=== PATIENT | female | born 1940 | race Caucasian/White ===

== ENCOUNTER 2017-01-17 12:37 | Emergency (ER) | payer OTHER ==
[2017-01-17 12:44] VITALS: BP 153/95; BMI 31.8
--- NOTE | 2017-01-17 12:48 | DR.EXTPAIN ---
HPI - Time seen Time seen: 12:44 - Complaint/Symptoms Chief Complaint Doctor Comments: Patient tripped at the parking docker in handicapped parking. She landed on the left shoulder. She presented to the ED with complaint of left shoulder pain PMH - PMH Past Medical History: Arthritis, Asthma, CHF, COPD, GERD, Hyperthyroidism Past Surgical History: Yes Surgical History: Appendectomy, Cholecystectomy, Hysterectomy, Tonsillectomy - Family History Family Medical History: Cancer, [place], Hypertension ROS - Review of Systems Constitutional: No Symptoms Reported Eyes: No Symptoms Reported ENTM: No Symptoms Reported Respiratoy: No Symptoms Reported Cardiovascular: No Symptoms Reported Gastrointestinal/Abdominal: No Symptoms Reported Genitourinary: No Symptoms Reported Neurological: No Symptoms Reported Musculoskeletal: No Symptoms Reported, Shoulder (left shoulder injury) Integumentary: No Symptoms Reported Hematologic/Lymphatic: No Symptoms Reported Endocrine: No Symptoms Reported Psychiatric: No Symptoms Reported All Other Systems: Reviewed and Negative PE - Vital Signs Vitals: Temperature 97.3 F Pulse Rate 76 Respiratory Rate 18 Blood Pressure [Left Arm] 132/58 Blood Pressure [Right Arm] 142/68 Blood Pressure 153/95 O2 Sat by Pulse Oximetry 94 - General Limitations: No Limitations General Appearance: Alert, In No Apparent Distress - Head Head Exam: Normal Inspection, Atraumatic - Eyes Eye exam: Normal Appearance, PERRL, EOMI - ENT ENT Exam: Normal Exam - Neck Neck Exam: Normal Inspection, Full ROM - Chest Chest Inspection: Normal Inspection - Respiratory Respiratory Exam: Normal Lung Sounds Bilat Respiratory Exam: Bilateral Clear to Auscultation - Cardiovascular Cardiovascular Exam: Regular Rate - Abdominal Exam Abdominal Exam: Normal Inspection Abdominal Tenderness: negative: RUQ, RLQ, LUQ, LLQ, Epigastrium, Suprapubic, Diffuse, Mild, Moderate, Severe, Other - Extremities Extremities Exam: Normal Inspection, Full ROM - Upper Extremities Shoulder Exam: Deformity, Tenderness over AC Joint, Other (left shoulder) Arm Exam: Normal Inspection Elbow Exam: Normal Inspection, Laceration Forearm Exam: Normal Inspection Hand Exam: Normal Inspection Neuromotor Exam: Normal Exam Neurosensory Exam: Normal Exam Hand Tendon Exam: Flexor Digitorium Profundus (Location) - Lower Extremities Hip/Pelvis Exam: Normal Inspection Upper Leg Exam: Normal Inspection Knee Exam: Normal Inspection Lower Leg Exam: Normal Inspection Ankle Exam: Normal Inspection Foot/Toe Exam: Normal Inspection Neurovascular/Tendon Exam: Normal Capillary Refill MDM - Differential Diagnosis Differential Diagnosis: Contusion, Neurovascular Injury Course - Treatment Treatment: Spoke with Dr Pulliam per request of patient; he agreed to see in consult on patient today. S/P consultation agreed to surgery on Sunday of next week. ROR - XRAY XRAY Interpreted by: Radiologist (Shoulder: Slightly impacted humeral neck fracture with associated avulsion of the greater tuberosity.) - Diagnosis Discharge Problem: Humeral surgical neck fracture Qualifiers: Encounter type: initial encounter Fracture type: closed Fracture morphology: 2- part Fracture alignment: displaced Laterality: left Qualified Code(s): S42.222A - 2-part displaced fracture of surgical neck of left humerus, initial encounter for closed fracture - Discharge Plan Condition: Stable - Follow ups/Referrals Follow ups/Referrals: Jacky Smith [Primary Care Provider] - 3 days - Instructions
[2017-01-17] MEDS ORDERED: TORADOL 30 MG VIAL IM ONE (12:49)
[2017-01-17] MEDS ORDERED: TORADOL 30 MG VIAL ONE (12:52)
--- NOTE | 2017-01-17 13:17 | RAD ---
HISTORY: Injury, fall, left shoulder pain and decreased range of motion Study: Left shoulder three views Comparison: None Findings: There is a slightly impacted fracture of the left humeral neck with associated avulsion of the great er tuberosity. The clavicle, AC joint, scapula, and left upper ribs are intact. IMPRESSION: Slightly impacted humeral neck fracture with associated avulsion of the greater tuberosity Reported By:
[2017-01-17] MEDS ORDERED: TYLENOL #3 TAB (W/CODEINE) PO ONE ×2 (15:02→15:04)
--- NOTE | 2017-01-17 17:02 | CT ---
CT left shoulder without contrast Indication: Shoulder pain after fall. Comparison: Radiograph performed earlier today Technique: CT images of the left shoulder were obtained without contrast. Automatic exposure control was utilized. Findings: There is transverse fracture through the humeral surgical neck demonstrating mild impactio n of the distal humerus. There is also longitudinal fracture extension through the base of the great er tuberosity, demonstrating mild superior retraction by the rotator cuff. The glenohumeral articula tion is grossly intact. The AC joint is not widened, but demonstrates mild degenerative disease. The rotator cuff appears grossly intact, within the limitations of a noncontrast CT. No significant mus radha atrophy is appreciated. Impression: Multipart and mildly displaced fracture of the humeral head and neck Reported By:
== END 2017-01-17 16:24 | disposition home or self-care (01) ==
LOC: ER 12:55
DX: S42.222A 2-part displaced fracture of surgical neck of left humerus, initial encounter for closed fracture (principal); W18.49XA Other slipping, tripping and stumbling without falling, initial encounter; Y92.89 Other specified places as the place of occurrence of the external cause
CPT/HCPCS: 36415; 73030; 73200; 80053; 83735; 83880; 85025; 96372; 99283; J1885

== ENCOUNTER → 2017-01-17 | Outpatient (CLI) | payer OTHER ==
[2016-12-01 09:25] VITALS: BP 132/58
[2017-01-17 12:29] LABS: BASOPHILS % (AUTO) 0.7 % (0.2-1.0); EOSINOPHILS # (AUTO) 0.2 x10^3/uL (0.0-0.2); EOSINOPHILS % (AUTO) 2.6 % (0.9-2.9); HEMATOCRIT 45.8 % (36.0-47.0); HEMOGLOBIN 15.4 g/dL (12.0-16.0); LYMPHOCYTES # (AUTO) 1.9 X10^3/uL (1.3-2.9); LYMPHOCYTES % (AUTO) 27.7 % (21.0-51.0); MEAN CORPUSCULAR HEMOGLOBIN 32.1 pg (27.0-34.0); MEAN CORPUSCULAR HGB CONC 33.6 g/dL (33.0-35.0); MEAN CORPUSCULAR VOLUME 95.6 fL (80.0-100.0); MEAN PLATELET VOLUME 9.8 fL (7.4-11.0); MONOCYTES # (AUTO) 0.8 x10^3/uL (0.3-0.8); MONOCYTES % (AUTO) 11.4 % (0.0-13.0); NEUTROPHILS # (AUTO) 3.9 x10^3/uL (2.2-4.8); NEUTROPHILS % (AUTO) 57.6 % (42.0-75.0); PLATELET COUNT 194 X10^3/uL (150.0-450.0); RED BLOOD COUNT 4.79 X10^6/uL (3.5-5.4); RED CELL DISTRIBUTION WIDTH 13.2 % (11.6-16.5); WHITE BLOOD COUNT 6.7 X10^3/uL (3.6-10.0)
[2017-01-17 12:40] LABS: ALANINE AMINOTRANSFERASE 35 Units/L (12-78); ALBUMIN 4.3 g/dL (3.4-5.0); ALKALINE PHOSPHATASE 47 Units/L (46-116); ASPARTATE AMINO TRANSFERASE 30 Units/L (15-37); BLOOD UREA NITROGEN 15 mg/dL (7-18); CALCIUM 9.1 mg/dL (8.5-10.1); CARBON DIOXIDE 29.3 mmol/L (21-32); CHLORIDE 102 mmol/L (98-107); COR NA(FOR HYPERGLY) 142 mmol/L (136-145); CREATININE 1.43 mg/dL (0.55-1.02); GLUCOSE 113 mg/dL (65-99); MAGNESIUM 2.1 mg/dL (1.7-2.9); SODIUM 142 mmol/L (136-145); TOTAL PROTEIN 7.8 g/dL (6.4-8.2); eGFR BLACK RACES 46 (>60); eGFR NON BLACK RACES 38 (>60)
[2017-01-17 12:46] LABS: B-TYPE NATRIURETIC PEPTIDE 9.1 pg/mL (0-79)
== END | disposition home or self-care (01) ==
LOC: LAB 12:05
PROVIDERS: ATTEND Internal Medicine
DX: R60.0 Localized edema (principal); J98.4 Other disorders of lung; R06.09 Other forms of dyspnea
CPT/HCPCS: 36415; 80053; 83735; 83880; 85025

== ENCOUNTER → 2017-01-23 | Outpatient (CLI) | payer OTHER ==
[2017-01-17 12:44] VITALS: BP 153/95
[2017-01-23 12:34] LABS: BILIRUBIN,URINE NEGATIVE (NEGATIVE); BLOOD/HEMOGLOBIN,URINE NEGATIVE (NEGATIVE); GLUCOSE, URINE NEGATIVE (NEGATIVE); KETONES,URINE NEGATIVE (NEGATIVE); LEUKOCYTE ESTERASE ,URINE 1+ (NEGATIVE); NITRITES,URINE NEGATIVE (NEGATIVE); PROTEIN,URINE 2+ (NEGATIVE); UROBILINOGEN,URINE NORMAL (NORMAL)
[2017-01-23 12:42] LABS: BASOPHILS % (AUTO) 0.6 % (0.2-1.0); EOSINOPHILS # (AUTO) 0.3 x10^3/uL (0.0-0.2); EOSINOPHILS % (AUTO) 3.4 % (0.9-2.9); HEMOGLOBIN 12.6 g/dL (12.0-16.0); LYMPHOCYTES % (AUTO) 26.2 % (21.0-51.0); MEAN CORPUSCULAR HEMOGLOBIN 32.4 pg (27.0-34.0); MEAN CORPUSCULAR HGB CONC 34.1 g/dL (33.0-35.0); MEAN CORPUSCULAR VOLUME 94.9 fL (80.0-100.0); MONOCYTES # (AUTO) 0.7 x10^3/uL (0.3-0.8); MONOCYTES % (AUTO) 8.9 % (0.0-13.0); NEUTROPHILS # (AUTO) 4.7 x10^3/uL (2.2-4.8); NEUTROPHILS % (AUTO) 60.9 % (42.0-75.0); PLATELET COUNT 189 X10^3/uL (150.0-450.0); RED CELL DISTRIBUTION WIDTH 13.4 % (11.6-16.5); WHITE BLOOD COUNT 7.6 X10^3/uL (3.6-10.0)
[2017-01-23 12:46] LABS: APPEARANCE,URINE SLIGHTLY HAZY (CLEAR); BACTERIA,URINE TRACE /HPF (NEGATIVE); COLOR,URINE AMBER (YELLOW); RBC,URINE 0-3 /HPF (NEGATIVE); SQUAMOUS EPITHELIAL CELL,UR FEW /HPF (NEGATIVE)
[2017-01-23 12:47] LABS: MUCUS,URINE FEW /HPF (NEGATIVE)
--- NOTE | 2017-01-23 13:26 | RAD ---
HISTORY: Preoperative evaluation for shoulder surgery. Study: PA and lateral views of the chest Comparison: AP chest dated 12/01/2016, left shoulder radiographs dated 01/17/2017 Findings: Linear opacities are noted within the left lung base which were present on prior exam and suggest le ft basal scarring. There is a mildly impacted fracture of the left humeral surgical neck, with depre ssion of the humeral head likely pseudo subluxation related to hemarthrosis. Correlate with prior ch est radiographs. No focal airspace opacities are demonstrated. Cardiac silhouette is borderline enlarged. There are no pleural effusions. IMPRESSION: 1. Borderline enlargement of the cardiac silhouette. Scarring in the right lung base. Lungs are oth erwise clear. 2. Fracture of the surgical neck of the left humerus. Humeral head is mildly depressed with increase d acromiohumeral space, likely pseudosubluxation secondary to a hemarthrosis.. Correlate with prior shoulder radiographs. Reported By:
[2017-01-23 14:03] LABS: ERYTHROCYTE SEDIMENTATION RATE 16 MM/HOUR (0-20)
[2017-01-23 17:14] LABS: ALANINE AMINOTRANSFERASE 30 Units/L (12-78); ALBUMIN 3.7 g/dL (3.4-5.0); ALKALINE PHOSPHATASE 37 Units/L (46-116); ASPARTATE AMINO TRANSFERASE 28 Units/L (15-37); BLOOD UREA NITROGEN 18 mg/dL (7-18); CALCIUM 9.4 mg/dL (8.5-10.1); CARBON DIOXIDE 28.3 mmol/L (21-32); CHLORIDE 105 mmol/L (98-107); CREATININE 1.32 mg/dL (0.55-1.02); GLUCOSE 100 mg/dL (65-99); SODIUM 141 mmol/L (136-145); eGFR BLACK RACES 50 (>60); eGFR NON BLACK RACES 41 (>60)
== END ==
LOC: LAB 11:45
PROVIDERS: ATTEND Orthopaedic Surgery
DX: Z01.818 Encounter for other preprocedural examination (principal); Z01.810 Encounter for preprocedural cardiovascular examination; Z01.811 Encounter for preprocedural respiratory examination; Z79.899 Other long term (current) drug therapy; Z11.8 Encounter for screening for other infectious and parasitic diseases; S42.232A 3-part fracture of surgical neck of left humerus, initial encounter for closed fracture; X58.XXXA Exposure to other specified factors, initial encounter
CPT/HCPCS: 36415; 71020; 80053; 81001; 85025; 85652; 86140; 87641; 93005; 93010

== ENCOUNTER → 2017-01-30 | Day surgery (SDC) | payer OTHER ==
[~2017-01-30] MED LIST: ANCEF VIAL 1 GM ONE; BENADRYL INJ 50 MG VIAL IVP PRN; D5 LR 1000 ML 1,000 ML IV ONE; DILAUDID INJ IVP PRN; DIPRIVAN VIAL ONE; DYLOJECT INJ ONE; FENTANYL INJ 250 mcg ONE; NAROPIN 0.75% ONE; NEOSTIGMINE INJ ONE; NORCURON INJ 10 MG VIAL ONE; NS 50 ML IV + SPIKE MINIBAG* 50 ML IV ONE; NS IRRIGATION 1000 ML 1,000 ML with BACITRACIN VIAL 50,000 UNT IR ONE; PHENERGAN INJ 25 MG IVP PRN; QUELICIN (OR ANECTINE) ONE; REGLAN INJ 10 MG VIAL IVP PRN; ROBINUL ONE; ULTANE GAS IN ONE; VERSED ONE; XYLOCAINE 2 % (PLAIN) ONE; ZOFRAN INJ 4 MG VIAL IVP PRN; ZOFRAN INJ 4 MG VIAL ONE
--- NOTE | 2017-01-30 14:52 | RAD ---
HISTORY: Humeral fracture Study: Left shoulder two views Comparison: January 17, 2017 Findings: The clavicle, AC joint, scapula, glenohumeral joint, and left upper ribs are intact. The patient is immediately status post open reduction and internal fixation of a humeral neck fracture with a plate and multiple screws. Position and alignment is near anatomic. Surgical mateus are present. IMPRESSION: Status post successful open reduction, internal fixation left humeral neck fracture Reported By:
[2017-01-30 16:18] VITALS: BP 139/85
== END | disposition home or self-care (01) ==
LOC: SURG1 10:14
PROVIDERS: ATTEND Orthopaedic Surgery
PROC: 0PSD04Z Reposition Left Humeral Head with Internal Fixation Device, Open Approach (ICD-10-PCS; principal; 2017-01-30 07:30)
DX: S42.292A Other displaced fracture of upper end of left humerus, initial encounter for closed fracture (principal); X58.XXXA Exposure to other specified factors, initial encounter
CPT/HCPCS: 64418; 73030; 76000; 99100; A4216; A4222; J0330; J0690; J2001; J2250; J2405; J2710; J3010; J3490; J7120

== ENCOUNTER → 2017-02-14 | Outpatient (CLI) | payer OTHER ==
[2017-01-30 16:18] VITALS: BP 139/85
--- NOTE | 2017-02-14 12:57 | RAD ---
Left humerus-two views Indication: Postop followup of left humerus fracture. Comparison: January 30, 2017 radiograph reviewed. Findings: Femoral sideplate screw fixation hardware is intact. Minimal AC joint and glenohumeral tasneem nt DJD noted. Impression: Expected postoperative appearance of left humerus fracture which is in anatomic position . Reported By:
== END ==
LOC: RAD 12:35
PROVIDERS: ATTEND Orthopaedic Surgery
DX: S42.232A 3-part fracture of surgical neck of left humerus, initial encounter for closed fracture (principal); X58.XXXA Exposure to other specified factors, initial encounter
CPT/HCPCS: 73060

== ENCOUNTER → 2017-03-14 | Outpatient (CLI) | payer OTHER ==
[2017-01-30 16:18] VITALS: BP 139/85
--- NOTE | 2017-03-14 11:49 | RAD ---
HISTORY: Follow up fracture Study: Left humerus two view Comparison: February 14, 2017 Findings: The patient is status post open reduction and internal fixation of a humeral neck fracture with a pl ate and multiple screws. Position and alignment is unchanged from the prior examination. No obvious healing is identified as yet. IMPRESSION: No significant change from the prior examination Reported By:
== END ==
LOC: RAD 11:14
PROVIDERS: ATTEND Orthopaedic Surgery
DX: S42.232A 3-part fracture of surgical neck of left humerus, initial encounter for closed fracture (principal); X58.XXXA Exposure to other specified factors, initial encounter
CPT/HCPCS: 73060

== ENCOUNTER → 2017-07-03 | Outpatient (CLI) | payer OTHER ==
[2017-01-30 16:18] VITALS: BP 139/85
--- NOTE | 2017-07-05 10:03 | MRI ---
MRI left knee without contrast Indication: Left knee pain and swelling Technique: Multiplanar, multi sequence imaging of the left knee without IV contrast administration. Findings: The extensor mechanism is intact. There is a large subcortical cyst within the median pimentel lar ridge subchondral bone with moderate fissuring of the median patellar ridge articular cartilage. There is moderate thinning and chondromalacia of the lateral patellar articular cartilage as well. Th e patella remains well positioned within the femoral trochlea. The medial and lateral retinacular com plex are intact. Trace amount of fluid is noted within the popliteal fossa. Popliteus muscle and tend on are intact. Pes anserine tendons are normal. Incidental note of dilated popliteal veins The medial femorotibial compartment demonstrates diffuse chondral thinning however there is no full-t hickness chondral loss or subchondral marrow edema. Small surface osteophyte. The lateral femorotibia l compartment demonstrates full-thickness articular cartilage loss within the tibia and fairly high g rade chondral thinning of the lateral femoral condyle. Moderate-sized surface osteophytes are noted w ith moderate subchondral bone marrow edema within the lateral tibial plateau. No localizing or pathologic appearing bone marrow signal abnormality within the knee. The cruciate and collateral ligaments are intact. Biceps femoris and iliotibial band are normal. The medial meniscus demonstrates mucoid degeneration without tear. The lateral meniscus demonstrates ray re truncation and attenuation of the meniscal body and anterior horn consistent with displaced tears. There is no visible intact anterior root attachment. 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 2. Moderate osteoarthrosis of the median patellar ridge evidence by high-grade chondral fissuring and large subcortical cyst formation. 3. [id number] medial femorotibial compartment osteoarthrosis. 4. Moderate sized subtalar joint effusion with trace amount of fluid within the popliteal fossa. 5. Popliteal venous varix. Reported By:
== END | disposition home or self-care (01) | DRG 950 ==
LOC: RAD 10:56
PROVIDERS: ATTEND Orthopaedic Surgery
DX: S83.204D Other tear of unspecified meniscus, current injury, left knee, subsequent encounter (principal); X58.XXXD Exposure to other specified factors, subsequent encounter; M25.462 Effusion, left knee
CPT/HCPCS: 73721

== ENCOUNTER → 2017-10-23 | Outpatient (CLI) | payer OTHER ==
[2017-01-30 16:18] VITALS: BP 139/85
--- NOTE | 2017-10-24 08:50 | VAS ---
HISTORY: Left knee pain and redness Study: Venous Doppler ultrasound of the left lower extremity Comparison: None TECHNIQUE: Multiple meeks scale and color flow Doppler images of the deep venous system were obtained of the left lower extremity. FINDINGS: The deep venous system of the left lower extremity was evaluated from the level of the common femoral vein through the popliteal vein. Normal color flow and augmentation can be observed. In addition, normal compression is seen throughout the deep venous system. IMPRESSION: 1. Negative for DVT. Reported By:
== END ==
LOC: RAD 17:04
PROVIDERS: ATTEND Physician Assistant
DX: M79.89 Other specified soft tissue disorders (principal)
CPT/HCPCS: 93971

== ENCOUNTER 2019-01-08 09:50 | Inpatient (IN) ==
[2019-01-08] MEDS ORDERED: FORTAZ or TAZICEF VIAL INJ IVP SCH (12:51)
[2019-01-08 13:15] LABS: BASOPHILS % (AUTO) 0.3 % (0.2-1.0); EOSINOPHILS % (AUTO) 0.1 % (0.9-2.9); HEMATOCRIT 40.8 % (36.0-47.0); HEMOGLOBIN 13.7 g/dL (12.0-16.0); LYMPHOCYTES # (AUTO) 1.3 X10^3/uL (1.3-2.9); LYMPHOCYTES % (AUTO) 11.2 % (21.0-51.0); MEAN CORPUSCULAR HEMOGLOBIN 33.3 pg (27.0-34.0); MEAN CORPUSCULAR HGB CONC 33.6 g/dL (33.0-35.0); MEAN PLATELET VOLUME 8.8 fL (7.4-11.0); MONOCYTES # (AUTO) 0.7 x10^3/uL (0.3-0.8); MONOCYTES % (AUTO) 6.1 % (0.0-13.0); NEUTROPHILS # (AUTO) 9.9 x10^3/uL (2.2-4.8); NEUTROPHILS % (AUTO) 82.3 % (42.0-75.0); PLATELET COUNT 190 X10^3/uL (150.0-450.0); RED BLOOD COUNT 4.12 X10^6/uL (3.5-5.4); RED CELL DISTRIBUTION WIDTH 13.3 % (11.6-16.5)
[2019-01-08 13:31] LABS: ALANINE AMINOTRANSFERASE 33 Units/L (12-78); ALBUMIN 3.7 g/dL (3.4-5.0); ALKALINE PHOSPHATASE 48 Units/L (46-116); ASPARTATE AMINO TRANSFERASE 18 Units/L (15-37); BLOOD UREA NITROGEN 24 mg/dL (7-18); CARBON DIOXIDE 24.6 mmol/L (21-32); CHLORIDE 103 mmol/L (98-107); COR NA(FOR HYPERGLY) 138 mmol/L (136-145); CREATININE 1.37 mg/dL (0.55-1.02); SODIUM 137 mmol/L (136-145); TOTAL PROTEIN 6.9 g/dL (6.4-8.2); eGFR NON BLACK RACES 39 (>60)
[2019-01-08] MEDS ORDERED: NS 1/2 1000 ML IV 1,000 ML ONE (13:43)
[2019-01-08] MEDS: ROBITUSSIN DM PO SCH ×3 (13:54→21:31)
[2019-01-08] MEDS: LEVAQUIN PREMIX IV 500 MG 500 MG/100 ML BAG IV SCH (13:54)
[2019-01-08] MEDS: NS 1/2 1000 ML IV 1,000 ML IV SCH (13:54)
[2019-01-08] MEDS ORDERED: SALINE 3% 15 ML NEB TX NEB ONE (14:15)
--- NOTE | 2019-01-08 15:07 | RAD ---
History: Pneumonia Study: Portable AP chest Comparison: January 23, 2017 Findings: There is a thin linear scar in the left mid lung unchanged. No lung consolidation is demonstrated. There is no effusion. The heart size is normal. Partially visualized is a sideplate and screws over the proximal left humerus for old fracture. Impression: No acute cardiopulmonary disease Reported By:
[2019-01-08] MEDS: DUONEB 0.5 MG/3 MG NEB SCH ×3 (16:38→23:49)
[2019-01-08 17:28] VITALS: BMI 32.7
[2019-01-08] MEDS: CULTURELLE PRO-WELL PROBIOTIC CAP PO SCH (17:51)
[2019-01-08] MEDS ORDERED: ULTRAM PO PRN (20:03)
[2019-01-08] MEDS ORDERED: VOLTAREN 1 % GEL MULTI DOSE TUBE TOP PRN (20:03)
[2019-01-08] MEDS ORDERED: TEMOVATE SOLN TOP SCH (21:00)
[2019-01-08] MEDS ORDERED: ZyrTEC TAB 10 MG PO SCH (21:00)
[2019-01-08] MEDS: PULMICORT NEB TX 0.5 MG NEB SCH (21:09)
[2019-01-08] MEDS: FLONASE NASAL SPRAY ENOSTRIL SCH (21:28)
[2019-01-08] MEDS: MYSOLINE PO SCH (21:30)
[2019-01-08] MEDS: REQUIP PO SCH (21:30)
[2019-01-08] MEDS: NEURONTIN CAP 100 MG PO SCH (21:30)
[2019-01-08] MEDS: PriLOSEC PO SCH (21:31)
[2019-01-08] MEDS: SOLU-Medrol 40 MG VIAL IVP SCH (21:31)
[2019-01-08] MEDS: FORTAZ or TAZICEF VIAL INJ IVP SCH (21:31)
[2019-01-09] MEDS ORDERED: NS 1/2 1000 ML IV 1,000 ML ONE ×2 (02:55→19:23)
[2019-01-09] MEDS: NS 1/2 1000 ML IV 1,000 ML IV SCH ×3 (03:50→19:59)
[2019-01-09] MEDS: DUONEB 0.5 MG/3 MG NEB SCH ×6 (05:20→23:49)
[2019-01-09] MEDS: SOLU-Medrol 40 MG VIAL IVP SCH ×3 (06:01→21:18)
[2019-01-09 06:20] LABS: BASOPHILS % (AUTO) 0.1 % (0.2-1.0); HEMATOCRIT 36.6 % (36.0-47.0); HEMOGLOBIN 12.6 g/dL (12.0-16.0); LYMPHOCYTES # (AUTO) 1.1 X10^3/uL (1.3-2.9); LYMPHOCYTES % (AUTO) 11.8 % (21.0-51.0); MEAN CORPUSCULAR HEMOGLOBIN 33.7 pg (27.0-34.0); MEAN CORPUSCULAR HGB CONC 34.5 g/dL (33.0-35.0); MEAN CORPUSCULAR VOLUME 97.9 fL (80.0-100.0); MEAN PLATELET VOLUME 8.8 fL (7.4-11.0); MONOCYTES # (AUTO) 0.4 x10^3/uL (0.3-0.8); NEUTROPHILS # (AUTO) 7.8 x10^3/uL (2.2-4.8); NEUTROPHILS % (AUTO) 84.1 % (42.0-75.0); PLATELET COUNT 151 X10^3/uL (150.0-450.0); RED BLOOD COUNT 3.74 X10^6/uL (3.5-5.4); RED CELL DISTRIBUTION WIDTH 13.5 % (11.6-16.5); WHITE BLOOD COUNT 9.2 X10^3/uL (3.6-10.0)
[2019-01-09 06:34] LABS: ALBUMIN 3.1 g/dL (3.4-5.0); CALCIUM 8.7 mg/dL (8.5-10.1); CARBON DIOXIDE 23.9 mmol/L (21-32); COR CA(FOR HYPOALB) 9.4 mg/dL (8.5-10.1); CREATININE 1.2 mg/dL (0.55-1.02)
--- NOTE | 2019-01-09 06:57 | RAD ---
HISTORY: Shortness of breath Study: Chest AP portable Comparison: 01/08/2019 Findings: The heart is upper limits normal in size. The aorta is ectatic. The david are normal. The lung garcia are free of acute infiltrates. No pleural effusions are identified. There is minimal subsegmental atelectasis in the right lung base and left perihilar region. IMPRESSION: Minimal subsegmental atelectasis as described No acute infiltrates Reported By:
[2019-01-09 07:10] LABS: PLATELET MORPHOLOGY COMMENT NORMAL (NORMAL)
[2019-01-09] MEDS: PriLOSEC PO SCH ×2 (08:20→21:18)
[2019-01-09] MEDS: SYNTHROID 50 mcg TAB PO SCH (08:20)
[2019-01-09] MEDS: CULTURELLE PRO-WELL PROBIOTIC CAP PO SCH (08:20)
[2019-01-09] MEDS: FORTAZ or TAZICEF VIAL INJ IVP SCH ×2 (08:20→21:18)
[2019-01-09] MEDS: ROBITUSSIN DM PO SCH ×4 (08:20→21:18)
[2019-01-09] MEDS: MICRO K EXTEN CAP 10 MEQ PO SCH (08:21)
[2019-01-09] MEDS: LEVAQUIN PREMIX IV 500 MG 500 MG/100 ML BAG IV SCH (08:21)
[2019-01-09] MEDS: CELEBREX PO SCH (08:21)
[2019-01-09] MEDS: MYSOLINE PO SCH ×2 (08:22→21:20)
[2019-01-09] MEDS ORDERED: PATIENT'S HOME MEDICATION (Tiotropium Bromide 1 CAP) IN SCH (09:00)
[2019-01-09] MEDS: PULMICORT NEB TX 0.5 MG NEB SCH ×2 (09:31→20:03)
[2019-01-09 10:36] LABS: ABG ALLEN TEST POS; ABG BASE EXCESS -2.8 mmol/L (-2.0-2.0); ABG HCO3 19.4 mmol/L (22-26)
[2019-01-09] MEDS: TUSSIONEX PENNKINETIC SUSP PO PRN (11:35)
[2019-01-09] MEDS: FLONASE NASAL SPRAY ENOSTRIL SCH ×2 (16:32→21:19)
[2019-01-09] MEDS: LOVENOX INJ 30 MG SYR SC SCH ×2 (16:33→21:32)
[2019-01-09] MEDS: ZyrTEC TAB 10 MG PO SCH (21:17)
[2019-01-09] MEDS: REQUIP PO SCH (21:17)
[2019-01-09] MEDS: RESTORIL CAP 30 MG PO PRN (21:17)
[2019-01-09] MEDS: NEURONTIN CAP 100 MG PO SCH (21:18)
[2019-01-10] MEDS: DUONEB 0.5 MG/3 MG NEB SCH ×6 (00:30→19:59)
[2019-01-10 05:36] LABS: BASOPHILS % (AUTO) 0.1 % (0.2-1.0); HEMATOCRIT 36.8 % (36.0-47.0); HEMOGLOBIN 12.4 g/dL (12.0-16.0); LYMPHOCYTES # (AUTO) 0.8 X10^3/uL (1.3-2.9); LYMPHOCYTES % (AUTO) 6.3 % (21.0-51.0); MEAN CORPUSCULAR HEMOGLOBIN 33.6 pg (27.0-34.0); MEAN CORPUSCULAR HGB CONC 33.7 g/dL (33.0-35.0); MEAN CORPUSCULAR VOLUME 99.7 fL (80.0-100.0); MONOCYTES # (AUTO) 0.6 x10^3/uL (0.3-0.8); MONOCYTES % (AUTO) 4.9 % (0.0-13.0); NEUTROPHILS # (AUTO) 10.5 x10^3/uL (2.2-4.8); NEUTROPHILS % (AUTO) 88.7 % (42.0-75.0); PLATELET COUNT 150 X10^3/uL (150.0-450.0); RED BLOOD COUNT 3.69 X10^6/uL (3.5-5.4); RED CELL DISTRIBUTION WIDTH 13.7 % (11.6-16.5); WHITE BLOOD COUNT 11.9 X10^3/uL (3.6-10.0)
[2019-01-10 05:46] LABS: ALBUMIN 2.9 g/dL (3.4-5.0); CARBON DIOXIDE 22.2 mmol/L (21-32); COR CA(FOR HYPOALB) 9.9 mg/dL (8.5-10.1); CREATININE 1.18 mg/dL (0.55-1.02); TOTAL PROTEIN 5.6 g/dL (6.4-8.2)
--- NOTE | 2019-01-10 06:18 | RAD ---
HISTORY: Shortness of breath Study: Chest AP portable Comparison: 01/09/2019 Findings: The heart is upper limits normal in size. The david are normal. The lungs are free of acute alveolar infiltrates. No pleural effusions are identified. Minimal bibasilar subsegmental atelectasis is unchanged. No pleural effusions are identified. The bony thorax is unremarkable. IMPRESSION: No significant change from the prior examination Reported By:
[2019-01-10] MEDS: NS 1/2 1000 ML IV 1,000 ML IV SCH ×3 (06:20→21:58)
[2019-01-10] MEDS: SOLU-Medrol 40 MG VIAL IVP SCH ×3 (06:20→21:46)
[2019-01-10 06:28] LABS: PLATELET MORPHOLOGY COMMENT NORMAL (NORMAL)
[2019-01-10] MEDS: PULMICORT NEB TX 0.5 MG NEB SCH ×2 (08:07→19:59)
[2019-01-10] MEDS: ROBITUSSIN DM PO SCH ×4 (08:17→21:46)
[2019-01-10] MEDS: FORTAZ or TAZICEF VIAL INJ IVP SCH ×2 (08:17→21:45)
[2019-01-10] MEDS: SYNTHROID 50 mcg TAB PO SCH (08:18)
[2019-01-10] MEDS: PriLOSEC PO SCH ×2 (08:18→21:46)
[2019-01-10] MEDS: CELEBREX PO SCH (08:18)
[2019-01-10] MEDS: MICRO K EXTEN CAP 10 MEQ PO SCH (08:18)
[2019-01-10] MEDS: CULTURELLE PRO-WELL PROBIOTIC CAP PO SCH (08:18)
[2019-01-10] MEDS: MYSOLINE PO SCH (08:18)
[2019-01-10] MEDS: LOVENOX INJ 30 MG SYR SC SCH (08:19)
[2019-01-10] MEDS: LEVAQUIN PREMIX IV 500 MG 500 MG/100 ML BAG IV SCH (08:19)
[2019-01-10] MEDS: FLONASE NASAL SPRAY ENOSTRIL SCH ×2 (08:19→22:09)
--- NOTE | 2019-01-10 08:21 | PCM.PROG ---
Progress Note - Progress Note for Day of Date of Exam: 01/09/19 - Subjective Subjective: WAS ADMITTED FOR BRONCHOPNEUMONIA. TODAY, SHE IS ALERT AND ORIENTED, LYING IN BED ON MORNING ROUNDS. SHE CONTINUES WITH SHORNTESS OF BREATH AND A PRODUCTIVE COUGH TODAY. ON EXAMINATION, HEART IS REGULAR IN RATE AND RHYTHM. BILATERAL LUNGS ARE NOTED WITH SCATTERED WHEEZING. ABDOMEN IS ROUND, SOFT, AND NON-TENDER WITH NORMAL BOWEL SOUNDS NOTED IN ALL QUADRANTS. HER VITALS THIS MORNING ARE 98.4-84-20-99%-149/80. LABS WERE OBTAINED. ABNORMAL LAB VALUES INCLUDE THE FOLLOWING: BUN 20, CREATININE 1.20, GLUCOSE 171, ALK PHOS 39, TOTAL PROTEIN 6.0, ALBUMIN 3.1. BLOOD AND SPUTUM CULTURES ARE PENDING. A CHEST XRAY WAS OBTAINED TODAY AND REVEALED: Minimal subsegmental atelectasis as described. No acute infiltrates. TODAY, WE WILL CONTINUE WITH IV ANTIBIOTICS, SUPPLEMENTAL OXYGEN, AND RESPIRATORY TREATMENTS. WE WILL OBTAIN AN ABG. OTHERWISE, WE WILL FOLLOW-UP WITH AM LABS AND CONTINUE TO MONITOR. - Past Medical Family Social History Past Med/Fam/Surg Hx: No changes since H&P Allergies: Allergies No Known Drug Allergies Allergy (Verified 01/08/19 18:39) - Review of Systems ROS: No change since H&P - Vital Signs and I&O's Vital Signs: Temperature 97.6 F Pulse Rate [Left Brachial] 93 Pulse Rate 97 Respiratory Rate 22 Blood Pressure [Left Arm] 136/70 Blood Pressure [Right Arm] 142/68 Blood Pressure 146/63 O2 Sat by Pulse Oximetry 92 Intake and Output: Intake & Output 01/07/19 01/08/19 01/09/19 01/10/19 11:59 11:59 11:59 11:59 Intake Total 2261 / 2261 3623 / 3623 Balance 226 / 2261 3323 / 3623 - Physical Exam Oriented: Normal Eyes: Normal Ear: Normal Nose: Normal Throat: Normal Respiratory: Generalized, Wheezes Cardiovascular: Normal. negative: S3, S4, Murmur : Normal Auscultation: Bowel Sounds: Normal Palpation: Normal Tenderness: Normal Skin: Normal Musculoskeletal: Normal Psychiatric: Normal Mood Description: Calm Affect: Normal Speech Pattern: Clear, Appropriate - Laboratory and Diagnostics Result Diagrams: 01/10/19 05:25 01/10/19 05:25 Labs: 01/08/19 14:30 Sputum - Expectorated Sputum Sputum Culture - Final 01/08/19 14:30 Sputum - Expectorated Sputum - Final Laboratory WBC 11.9 X10^3/uL (3.6-10.0) H 01/10/19 05:25 RBC 3.69 X10^6/uL (3.5-5.4) 01/10/19 05:25 Hgb 12.4 g/dL (12.0-16.0) 01/10/19 05:25 Hct 36.8 % (36.0-47.0) 01/10/19 05:25 MCV 99.7 fL (80.0-100.0) 01/10/19 05:25 MCH 33.6 pg (27.0-34.0) 01/10/19 05:25 MCHC 33.7 g/dL (33.0-35.0) 01/10/19 05:25 RDW 13.7 % (11.6-16.5) 01/10/19 05:25 Plt Count 150 X10^3/uL (150.0-450.0) 01/10/19 05:25 Plt Count Comment Adequate (ADEQUATE) 01/10/19 05:25 MPV 9.0 fL (7.4-11.0) 01/10/19 05:25 Neut % (Auto) 88.7 % (42.0-75.0) H 01/10/19 05:25 Lymph % (Auto) 6.3 % (21.0-51.0) L 01/10/19 05:25 [place] % (Auto) 4.9 % (0.0-13.0) 01/10/19 05:25 Eos % (Auto) 0.0 % (0.9-2.9) L 01/10/19 05:25 Baso % (Auto) 0.1 % (0.2-1.0) L 01/10/19 05:25 Neut # (Auto) 10.5 x10^3/uL (2.2-4.8) H 01/10/19 05:25 Lymph # (Auto) 0.8 X10^3/uL (1.3-2.9) L 01/10/19 05:25 [place] # (Auto) 0.6 x10^3/uL (0.3-0.8) 01/10/19 05:25 Eos # (Auto) 0.0 x10^3/uL (0.0-0.2) 01/10/19 05:25 Baso # (Auto) 0.0 X10^3/uL (0.0-0.1) 01/10/19 05:25 Absolute Nucleated RBC 0.0 /100WBC 01/10/19 05:25 Total Counted 100 01/10/19 05:25 Neutrophils % (Manual) 85 % (39-76) H 01/10/19 05:25 Lymphocytes % (Manual) 10 % (13-43) L 01/10/19 05:25 Monocytes % (Manual) 5 % (4-9) 01/10/19 05:25 Plt Morphology Comment Normal (NORMAL) 01/10/19 05:25 RBC Morphology Normal (NORMAL) 01/10/19 05:25 Sample Site Rb 01/09/19 10:30 ABG pH 7.480 (7.35-7.45) H 01/09/19 10:30 ABG pCO2 26.0 mmHg (35.0-45.0) L 01/09/19 10:30 ABG pO2 82.0 mmHg (80.0-100.0) 01/09/19 10:30 ABG HCO3 19.4 mmol/L (22-26) L 01/09/19 10:30 ABG O2 Saturation 97.0 % (90-100) 01/09/19 10:30 ABG Base Excess -2.8 mmol/L (-2.0-2.0) L 01/09/19 10:30 David Test Pos 01/09/19 10:30 A-a Gradient 35.0 mmHg 01/09/19 10:30 FiO2 21.0 01/09/19 10:30 Blood Gas Comments Tamera well cb 01/09/19 10:30 Sodium 139 mmol/L (136-145) 01/10/19 05:25 Corrected Sodium 141 mmol/L (136-145) 01/10/19 05:25 Potassium 4.6 mmol/L (3.5-5.1) 01/10/19 05:25 Chloride 106 mmol/L (98-107) 01/10/19 05:25 Carbon Dioxide 22.2 mmol/L (21-32) 01/10/19 05:25 BUN 16 mg/dL (7-18) 01/10/19 05:25 Creatinine 1.18 mg/dL (0.55-1.02) H 01/10/19 05:25 Est GFR (MDRD) Af Amer 57 (>60) L 01/10/19 05:25 Est GFR (MDRD) Non-Af 47 (>60) L 01/10/19 05:25 Glucose 172 mg/dL (65-99) H 01/10/19 05:25 Calcium 9.0 mg/dL (8.5-10.1) 01/10/19 05:25 Corrected Calcium 9.9 mg/dL (8.5-10.1) 01/10/19 05:25 Total Bilirubin 0.20 mg/dL (0.2-1.0) 01/10/19 05:25 AST 17 Units/L (15-37) 01/10/19 05:25 ALT 23 Units/L (12-78) 01/10/19 05:25 Alkaline Phosphatase 37 Units/L (46-116) L 01/10/19 05:25 Total Protein 5.6 g/dL (6.4-8.2) L 01/10/19 05:25 Albumin 2.9 g/dL (3.4-5.0) L 01/10/19 05:25 Globulin 2.7 g/dL (2.5-4.5) 01/10/19 05:25 Albumin/Globulin Ratio 1.1 Ratio (1.1-2.1) 01/10/19 05:25 - Plan (1) Bronchopneumonia Status: Acute Plan: IV FORTAZ, IV LEVAQUIN, RESPIRATORY TREATMENTS, IV STEROIDS, CONTINUE TO MONITOR.
[2019-01-10] MEDS: TUSSIONEX PENNKINETIC SUSP PO PRN (08:24)
[2019-01-10] MEDS ORDERED: HumuLIN R SUBCUT PRN (09:52)
[2019-01-10] MEDS: MUCOMYST 20% 200 MG/ML NEB SCH ×4 (10:14→20:00)
[2019-01-10] MEDS ORDERED: NS 1/2 1000 ML IV 1,000 ML ONE ×2 (11:44→21:56)
[2019-01-10] MEDS: SNACK - Diabetic Appropriate PO SCH (20:00)
[2019-01-10] MEDS: NEURONTIN CAP 100 MG PO SCH (21:46)
[2019-01-10] MEDS: ZyrTEC TAB 10 MG PO SCH (21:46)
[2019-01-10] MEDS: REQUIP PO SCH (21:46)
[2019-01-10] MEDS: ELIQUIS PO SCH (21:47)
[2019-01-10] MEDS: RESTORIL CAP 30 MG PO PRN (21:57)
[2019-01-11] MEDS: DUONEB 0.5 MG/3 MG NEB SCH ×6 (00:20→20:04)
[2019-01-11 05:30] LABS: BASOPHILS % (AUTO) 0.1 % (0.2-1.0); HEMATOCRIT 36.8 % (36.0-47.0); HEMOGLOBIN 12.5 g/dL (12.0-16.0); LYMPHOCYTES # (AUTO) 0.5 X10^3/uL (1.3-2.9); LYMPHOCYTES % (AUTO) 4.5 % (21.0-51.0); MEAN CORPUSCULAR HEMOGLOBIN 33.8 pg (27.0-34.0); MEAN CORPUSCULAR HGB CONC 34.1 g/dL (33.0-35.0); MEAN CORPUSCULAR VOLUME 99.2 fL (80.0-100.0); MEAN PLATELET VOLUME 9.3 fL (7.4-11.0); MONOCYTES # (AUTO) 0.4 x10^3/uL (0.3-0.8); MONOCYTES % (AUTO) 3.2 % (0.0-13.0); NEUTROPHILS % (AUTO) 92.2 % (42.0-75.0); PLATELET COUNT 156 X10^3/uL (150.0-450.0); RED BLOOD COUNT 3.71 X10^6/uL (3.5-5.4); RED CELL DISTRIBUTION WIDTH 13.7 % (11.6-16.5); WHITE BLOOD COUNT 11.9 X10^3/uL (3.6-10.0)
--- NOTE | 2019-01-11 05:36 | RAD ---
Examination: AP chest History: SOB Comparison 01/10/2019 Findings: Stable cardiac size. The right lung is clear. Linear densities in the left lung again noted consistent with atelectasis/fibrosis. No superimposed pneumonia, pneumothorax or pleural fluid. Impression: No interval change demonstrated. Reported By:
[2019-01-11 05:38] LABS: CALCIUM 8.9 mg/dL (8.5-10.1); CARBON DIOXIDE 23.9 mmol/L (21-32); COR CA(FOR HYPOALB) 9.7 mg/dL (8.5-10.1); CREATININE 1.27 mg/dL (0.55-1.02); TOTAL PROTEIN 5.8 g/dL (6.4-8.2)
[2019-01-11] MEDS: SOLU-Medrol 40 MG VIAL IVP SCH ×3 (06:33→21:07)
[2019-01-11 06:35] LABS: BAND NEUTROPHILS % 5 % (0-10)
[2019-01-11 06:36] LABS: PLATELET MORPHOLOGY COMMENT NORMAL (NORMAL)
[2019-01-11] MEDS: PULMICORT NEB TX 0.5 MG NEB SCH ×2 (08:59→20:04)
[2019-01-11] MEDS: MUCOMYST 20% 200 MG/ML NEB SCH ×4 (09:00→20:04)
[2019-01-11] MEDS: ELIQUIS PO SCH ×2 (09:01→21:10)
[2019-01-11] MEDS: FORTAZ or TAZICEF VIAL INJ IVP SCH ×2 (09:01→21:07)
[2019-01-11] MEDS: ROBITUSSIN DM PO SCH ×4 (09:01→21:14)
[2019-01-11] MEDS: LEVAQUIN PREMIX IV 500 MG 500 MG/100 ML BAG IV SCH (09:01)
[2019-01-11] MEDS: CULTURELLE PRO-WELL PROBIOTIC CAP PO SCH (09:02)
[2019-01-11] MEDS: MICRO K EXTEN CAP 10 MEQ PO SCH (09:02)
[2019-01-11] MEDS: SYNTHROID 50 mcg TAB PO SCH (09:03)
[2019-01-11] MEDS: PriLOSEC PO SCH ×2 (09:03→21:08)
[2019-01-11] MEDS: CELEBREX PO SCH (09:03)
[2019-01-11] MEDS: FLONASE NASAL SPRAY ENOSTRIL SCH ×2 (09:04→21:11)
[2019-01-11] MEDS: NS 1/2 1000 ML IV 1,000 ML IV SCH ×2 (11:03→21:16)
--- NOTE | 2019-01-11 17:01 | PCM.PROG ---
Progress Note - Progress Note for Day of Date of Exam: 01/10/19 - Subjective Subjective: WAS ADMITTED FOR BRONCHOPNEUMONIA. TODAY, SHE IS ALERT AND ORIENTED, LYING IN BED ON MORNING ROUNDS. SHE CONTINUES WITH SHORNTESS OF BREATH AND A PRODUCTIVE COUGH TODAY, NOT MUCH IMPROVEMENT NOTED SINCE YESTERDAY.. ON EXAMINATION, HEART IS REGULAR IN RATE AND RHYTHM. BILATERAL LUNGS CONTINUE WITH SCATTERED WHEEZING THROUGHOUT. ABDOMEN IS ROUND, SOFT, AND NON-TENDER WITH NORMAL BOWEL SOUNDS NOTED IN ALL QUADRANTS. HER VITALS THIS MORNING ARE 99.5-93-22-96%-138/63. LABS WERE OBTAINED. ABNORMAL LAB VALUES INCLUDE THE FOLLOWING: WBC 11.9, CREATININE 1.18, GLUCOSE 172, ALK PHOS 37, TOTAL PROTEIN 5.6, ALBUMIN 2.9. BLOOD AND SPUTUM CULTURES ARE PENDING. A CHEST XRAY WAS OBTAINED TODAY AND REVEALED: The heart is upper limits normal in size. The david are normal. The lungs are free of acute alveolar infiltrates. No pleural effusions are identified. Minimal bibasilar subsegmental atelectasis is unchanged. No pleural effusions are identified. The bony thorax is unremarkable. TODAY, WE WILL CONTINUE WITH IV ANTIBIOTICS, SUPPLEMENTAL OXYGEN, AND RESPIRATORY TREATMENTS. WE WILL ADD MUCOMYST TO NEB [place], ELIQUIS 2.5MG PO BID, AND INCREASE HER SOLU-MEDROL TO 80MG IV Q8H. OTHERWISE, WE WILL FOLLOW-UP WITH AM LABS AND CONTINUE TO MONITOR. - Past Medical Family Social History Past Med/Fam/Surg Hx: No changes since H&P Allergies: Allergies No Known Drug Allergies Allergy (Verified 01/08/19 18:39) - Review of Systems ROS: No change since H&P - Vital Signs and I&O's Vital Signs: Temperature 98.3 F Pulse Rate [Left Brachial] 88 Pulse Rate 92 Respiratory Rate 18 Blood Pressure [Left Arm] 152/86 Blood Pressure [Right Arm] 142/68 Blood Pressure 146/63 O2 Sat by Pulse Oximetry 94 Intake and Output: Intake & Output 01/09/19 01/10/19 01/11/19 01/12/19 11:59 11:59 11:59 11:59 Intake Total 2261 / 2261 3623 / 3623 2487 / 2487 372 / 372 Balance 2261 / 2261 3623 / 3623 2487 / 2487 372 / 372 - Physical Exam Oriented: Normal Eyes: Normal Ear: Normal Nose: Normal Throat: Normal Respiratory: Generalized, Wheezes Cardiovascular: Normal. negative: S3, S4, Murmur : Normal Auscultation: Bowel Sounds: Normal Palpation: Normal Tenderness: Normal Skin: Normal Musculoskeletal: Normal Psychiatric: Normal Mood Description: Calm Affect: Normal Speech Pattern: Clear, Appropriate - Laboratory and Diagnostics Result Diagrams: 01/11/19 04:55 01/11/19 04:55 Labs: 01/08/19 13:04 Blood Blood Culture - Preliminary 01/08/19 13:01 Blood Blood Culture - Preliminary 01/08/19 14:30 Sputum - Expectorated Sputum Sputum Culture - Final 01/08/19 14:30 Sputum - Expectorated Sputum - Final Laboratory WBC 11.9 X10^3/uL (3.6-10.0) H 01/11/19 04:55 RBC 3.71 X10^6/uL (3.5-5.4) 01/11/19 04:55 Hgb 12.5 g/dL (12.0-16.0) 01/11/19 04:55 Hct 36.8 % (36.0-47.0) 01/11/19 04:55 MCV 99.2 fL (80.0-100.0) 01/11/19 04:55 MCH 33.8 pg (27.0-34.0) 01/11/19 04:55 MCHC 34.1 g/dL (33.0-35.0) 01/11/19 04:55 RDW 13.7 % (11.6-16.5) 01/11/19 04:55 Plt Count 156 X10^3/uL (150.0-450.0) 01/11/19 04:55 Plt Count Comment Adequate (ADEQUATE) 01/11/19 04:55 MPV 9.3 fL (7.4-11.0) 01/11/19 04:55 Neut % (Auto) 92.2 % (42.0-75.0) H 01/11/19 04:55 Lymph % (Auto) 4.5 % (21.0-51.0) L 01/11/19 04:55 [place] % (Auto) 3.2 % (0.0-13.0) 01/11/19 04:55 Eos % (Auto) 0.0 % (0.9-2.9) L 01/11/19 04:55 Baso % (Auto) 0.1 % (0.2-1.0) L 01/11/19 04:55 Neut # (Auto) 11.0 x10^3/uL (2.2-4.8) H 01/11/19 04:55 Lymph # (Auto) 0.5 X10^3/uL (1.3-2.9) L 01/11/19 04:55 [place] # (Auto) 0.4 x10^3/uL (0.3-0.8) 01/11/19 04:55 Eos # (Auto) 0.0 x10^3/uL (0.0-0.2) 01/11/19 04:55 Baso # (Auto) 0.0 X10^3/uL (0.0-0.1) 01/11/19 04:55 Absolute Nucleated RBC 0.0 /100WBC 01/11/19 04:55 Total Counted 100 01/11/19 04:55 Neutrophils % (Manual) 84 % (39-76) H 01/11/19 04:55 Band Neutrophils % 5 % (0-10) 01/11/19 04:55 Lymphocytes % (Manual) 7 % (13-43) L 01/11/19 04:55 Monocytes % (Manual) 4 % (4-9) 01/11/19 04:55 Plt Morphology Comment Normal (NORMAL) 01/11/19 04:55 RBC Morphology Normal (NORMAL) 01/11/19 04:55 Sample Site Rb 01/09/19 10:30 ABG pH 7.480 (7.35-7.45) H 01/09/19 10:30 ABG pCO2 26.0 mmHg (35.0-45.0) L 01/09/19 10:30 ABG pO2 82.0 mmHg (80.0-100.0) 01/09/19 10:30 ABG HCO3 19.4 mmol/L (22-26) L 01/09/19 10:30 ABG O2 Saturation 97.0 % (90-100) 01/09/19 10:30 ABG Base Excess -2.8 mmol/L (-2.0-2.0) L 01/09/19 10:30 David Test Pos 01/09/19 10:30 A-a Gradient 35.0 mmHg 01/09/19 10:30 FiO2 21.0 01/09/19 10:30 Blood Gas Comments Tamera well cb 01/09/19 10:30 Sodium 137 mmol/L (136-145) 01/11/19 04:55 Corrected Sodium 139 mmol/L (136-145) 01/11/19 04:55 Potassium 4.8 mmol/L (3.5-5.1) 01/11/19 04:55 Chloride 105 mmol/L (98-107) 01/11/19 04:55 Carbon Dioxide 23.9 mmol/L (21-32) 01/11/19 04:55 BUN 19 mg/dL (7-18) H 01/11/19 04:55 Creatinine 1.27 mg/dL (0.55-1.02) H 01/11/19 04:55 Est GFR (MDRD) Af Amer 52 (>60) L 01/11/19 04:55 Est GFR (MDRD) Non-Af 43 (>60) L 01/11/19 04:55 Glucose 170 mg/dL (65-99) H 01/11/19 04:55 Calcium 8.9 mg/dL (8.5-10.1) 01/11/19 04:55 Corrected Calcium 9.7 mg/dL (8.5-10.1) 01/11/19 04:55 Total Bilirubin 0.30 mg/dL (0.2-1.0) 01/11/19 04:55 AST 18 Units/L (15-37) 01/11/19 04:55 ALT 31 Units/L (12-78) 01/11/19 04:55 Alkaline Phosphatase 35 Units/L (46-116) L 01/11/19 04:55 Total Protein 5.8 g/dL (6.4-8.2) L 01/11/19 04:55 Albumin 3.0 g/dL (3.4-5.0) L 01/11/19 04:55 Globulin 2.8 g/dL (2.5-4.5) 01/11/19 04:55 Albumin/Globulin Ratio 1.1 Ratio (1.1-2.1) 01/11/19 04:55 - Plan (1) Bronchopneumonia Status: Acute Plan: IV FORTAZ, IV LEVAQUIN, RESPIRATORY TREATMENTS, IV STEROIDS, MUCOMYST IN NEB [place], CONTINUE TO MONITOR.
[2019-01-11] MEDS ORDERED: NS 1/2 1000 ML IV 1,000 ML ONE (21:01)
[2019-01-11] MEDS: RESTORIL CAP 30 MG PO PRN (21:08)
[2019-01-11] MEDS: NEURONTIN CAP 100 MG PO SCH (21:09)
[2019-01-11] MEDS: ZyrTEC TAB 10 MG PO SCH (21:09)
[2019-01-11] MEDS: SNACK - Diabetic Appropriate PO SCH (21:11)
[2019-01-11] MEDS: REQUIP PO SCH (21:14)
[2019-01-12] MEDS: DUONEB 0.5 MG/3 MG NEB SCH ×2 (00:10→05:30)
[2019-01-12] MEDS: SOLU-Medrol 40 MG VIAL IVP SCH (05:12)
[2019-01-12] MEDS: NS 1/2 1000 ML IV 1,000 ML IV SCH (05:13)
[2019-01-12 05:34] LABS: BASOPHILS % (AUTO) 0.1 % (0.2-1.0); HEMATOCRIT 38.5 % (36.0-47.0); HEMOGLOBIN 13.3 g/dL (12.0-16.0); LYMPHOCYTES % (AUTO) 7.4 % (21.0-51.0); MEAN CORPUSCULAR HEMOGLOBIN 34.1 pg (27.0-34.0); MEAN CORPUSCULAR HGB CONC 34.6 g/dL (33.0-35.0); MEAN CORPUSCULAR VOLUME 98.7 fL (80.0-100.0); MEAN PLATELET VOLUME 8.8 fL (7.4-11.0); MONOCYTES # (AUTO) 0.7 x10^3/uL (0.3-0.8); MONOCYTES % (AUTO) 5.3 % (0.0-13.0); NEUTROPHILS # (AUTO) 11.3 x10^3/uL (2.2-4.8); NEUTROPHILS % (AUTO) 87.2 % (42.0-75.0); PLATELET COUNT 164 X10^3/uL (150.0-450.0); RED CELL DISTRIBUTION WIDTH 13.5 % (11.6-16.5)
[2019-01-12 05:48] LABS: CALCIUM 9.2 mg/dL (8.5-10.1); CARBON DIOXIDE 24.5 mmol/L (21-32); CREATININE 1.24 mg/dL (0.55-1.02)
[2019-01-12 05:57] LABS: BAND NEUTROPHILS % 1 % (0-10); PLATELET MORPHOLOGY COMMENT NORMAL (NORMAL)
--- NOTE | 2019-01-12 06:06 | RAD ---
Chest, one view Indication: Shortness of breath Comparison: 01/11/2019 Findings: Heart is stable in size. Chronic interstitial lung changes and mild scarring versus atelectasis within the mid left lung again noted and stable. No definite acute alveolar infiltrate is identified. No significant pleural effusion or pneumothorax. Impression: Stable chest exam as above. Reported By:
[2019-01-12] MEDS: CELEBREX PO SCH (08:07)
[2019-01-12] MEDS: CULTURELLE PRO-WELL PROBIOTIC CAP PO SCH (08:07)
[2019-01-12] MEDS: MICRO K EXTEN CAP 10 MEQ PO SCH (08:07)
[2019-01-12] MEDS: PriLOSEC PO SCH (08:07)
[2019-01-12] MEDS: SYNTHROID 50 mcg TAB PO SCH (08:08)
[2019-01-12] MEDS: ELIQUIS PO SCH (08:08)
[2019-01-12] MEDS: ROBITUSSIN DM PO SCH (08:08)
[2019-01-12] MEDS: FORTAZ or TAZICEF VIAL INJ IVP SCH (08:08)
[2019-01-12 08:34] VITALS: BP 164/78
[2019-01-12] MEDS ORDERED: MILK OF MAGNESIA PO SCH (21:00)
[2019-01-12] MEDS ORDERED: COLACE CAP 100 MG PO SCH (21:00)
== END 2019-01-12 08:45 | disposition home or self-care (01) | DRG 195 ==
LOC: ICU 12:47 → MED/SURG 01-10 10:56
PROVIDERS: ADMIT Internal Medicine; ATTEND Internal Medicine
DX: J18.0 Bronchopneumonia, unspecified organism; I10 Essential (primary) hypertension; E78.2 Mixed hyperlipidemia; R53.1 Weakness; E11.65 Type 2 diabetes mellitus with hyperglycemia; E03.8 Other specified hypothyroidism; E55.9 Vitamin D deficiency, unspecified; R06.02 Shortness of breath; Z79.899 Other long term (current) drug therapy
CPT/HCPCS: 36415; 36600; 71010; 71045; 80053; 82803; 85025; 87040; 87070; 87205; 94640; 94669; A4222; J0713; J1650; J1956; J2920; J7608; J7620; J7626

== ENCOUNTER 2019-01-22 21:24 | Observation (INO) ==
--- NOTE | 2019-01-22 21:56 | CT ---
History: Slurred speech Exam: CT head without contrast Comparison: None Technique: Routine transaxial images were obtained through the brain without contrast. Findings: The ventricles are mildly enlarged with diffuse mild prominence of the cortical sulci. There is moderate periventricular low density bilaterally. No intracranial hemorrhage or edema is seen and there is no extra-axial fluid collection or mass . The midline structures are unremarkable. The bones are intact. IMPRESSION: Mild atrophy and moderate chronic microischemic changes in the deep white matter with no acute abnormality seen. Reported By:
[2019-01-22 22:11] LABS: BASOPHILS % (AUTO) 0.7 % (0.2-1.0); EOSINOPHILS # (AUTO) 0.1 x10^3/uL (0.0-0.2); EOSINOPHILS % (AUTO) 1.6 % (0.9-2.9); HEMATOCRIT 36.7 % (36.0-47.0); HEMOGLOBIN 12.8 g/dL (12.0-16.0); LYMPHOCYTES # (AUTO) 1.7 X10^3/uL (1.3-2.9); LYMPHOCYTES % (AUTO) 23.2 % (21.0-51.0); MEAN CORPUSCULAR HEMOGLOBIN 33.9 pg (27.0-34.0); MEAN CORPUSCULAR VOLUME 96.8 fL (80.0-100.0); MEAN PLATELET VOLUME 8.2 fL (7.4-11.0); MONOCYTES # (AUTO) 0.6 x10^3/uL (0.3-0.8); MONOCYTES % (AUTO) 8.3 % (0.0-13.0); NEUTROPHILS # (AUTO) 4.9 x10^3/uL (2.2-4.8); NEUTROPHILS % (AUTO) 66.2 % (42.0-75.0); PLATELET COUNT 134 X10^3/uL (150.0-450.0); RED BLOOD COUNT 3.79 X10^6/uL (3.5-5.4); WHITE BLOOD COUNT 7.3 X10^3/uL (3.6-10.0)
--- NOTE | 2019-01-22 22:14 | DR.WEAKNES ---
HPI Time Seen Time Seen by Provider: 01/22/19 21:45 Primary Care Physician Primary Care Physician: shelli Complaints Chief Complaint Doctors Comments: An 79 y/o female here with family stating she has difficulty with her speech since an hour [employer] in ED. Her who lives with her saw her at 6 PM and she was fine then When he came back from errands her speech was jumbled. Though, the family states she sounds better now. Chief Complaint:: pt having some difficulty speaking lt facial droop Reviewed Nurses Notes Reviewed: Yes Source History Provided: Patient Mode of Arrival Mode of Arrival: Ambulatory Timing Onset of Chief Complaint: 01/22/19 Symptom Onset: Known and Unknown Onset of Symptoms Start Date: 01/22/19 Onset of Symptoms Start Time: 08:14 Duration Duration: Constant Context Onset: Spontaneous Symptoms: Difficulty talking History of: None Stroke Symptoms: Slurring Associated Signs and Symptoms Associated Signs and Symptoms: None PMH PMH Past Medical History: Yes Past Medical History: Arthritis, Asthma, CHF, COPD, GERD and Hyperthyroidism Past Surgical History: Yes Surgical History: Appendectomy, Cholecystectomy, Hysterectomy and Tonsillectomy Family History History of Family Medical Conditions: Yes Family Medical History: Cancer, [place] and Hypertension Social History Does any household member use tobacco: No Alcohol Use: None Do you use any recreational Drugs:: No Lives With: Family Lives Where: Home infectious screening In the last 2 months have you had wt loss of >10#?: NO Have you had fever, night sweats or hemotysis?: No Have you traveled outside the country in the last 6 months?: No Isolation: Standard ROS Review of Systems Constitutional: No Symptoms Reported Eyes: No Symptoms Reported ENTM: No Symptoms Reported Respiratoy: No Symptoms Reported Cardiovascular: No Symptoms Reported Gastrointestinal/Abdominal: No Symptoms Reported Genitourinary: No Symptoms Reported Neurological: Other (Dysarthria) Musculoskeletal: No Symptoms Reported Integumentary: No Symptoms Reported Hematologic/Lymphatic: No Symptoms Reported Endocrine: No Symptoms Reported Psychiatric: No Symptoms Reported PE Vital Signs Vitals: Temperature 98.2 F Pulse Rate [Left Brachial] 76 Pulse Rate 85 Respiratory Rate 18 Blood Pressure [Left Arm] 130/64 Blood Pressure [Right Arm] 150/79 Blood Pressure 144/80 O2 Sat by Pulse Oximetry 95 General Limitations: No Limitations General Appearance: Alert and In No Apparent Distress Head Head Exam: Normal Inspection, Atraumatic and Normocephalic Eyes Eye exam: Normal Appearance, PERRL and EOMI ENT ENT Exam: Normal Exam, Normal Oropharynx, Mucous Membranes Moist and TM's Normal Bilaterally Mouth Exam: Normal Inspection Neck Neck Exam: Normal Inspection, Full ROM and Trachea Midline Chest Chest Inspection: Normal Inspection and Symmetric Chest Wall Rise Respiratory Respiratory Exam: Normal Lung Sounds Bilat Cardiovascular Cardiovascular Exam: Regular Rate, Normal Rhythm, +S1 and +S2 Abdominal Exam Abdominal Exam: Normal Inspection, Normal Bowel Sounds and Soft Extremities Extremities Exam: Normal Inspection and Full ROM Back Back Exam: Normal Inspection Neurologic Neurological Exam: Alert and Oriented X3 Patient Oriented To: Person, Place and Time Speech: Other (dysarthria) Motor Strength - LUE: 5/5 Motor Strength - RUE: 5/5 Motor Strength - LLE: 5/5 Motor Strength - RLE: 5/5 Sensory Exam Upper Extremity: Pin Prick: Normal and 2 Point Discrimination: Normal Sensory Exam Lower Extremity: Pin Prick: Normal and 2 Point Discrimination: Normal Psychiatric Psychiatric Exam: Normal Affect and Normal Mood Skin Skin Exam: Warm, Dry and Normal Color COURSE Reevaluation 1st: Improved Consultation Consultation Comments: Dr. Bingham consulted via telemetry with recommendation to hold her for Observation here and complete workup. NO TPA recommended. Education/Counseling Education/Counseling: Patient, Family and Counseling Educated On: Treatment, Diagnosis, Prognosis and Needs for Follow Up ROR Labs Reviewed Laboratory Results Reviewed?: Yes Result Diagrams: 01/22/19 21:52 01/22/19 21:52 Laboratory: WBC 7.3 X10^3/uL (3.6-10.0) 01/22/19 21:52 RBC 3.79 X10^6/uL (3.5-5.4) 01/22/19 21:52 Hgb 12.8 g/dL (12.0-16.0) 01/22/19 21:52 Hct 36.7 % (36.0-47.0) 01/22/19 21:52 MCV 96.8 fL (80.0-100.0) 01/22/19 21:52 MCH 33.9 pg (27.0-34.0) 01/22/19 21:52 MCHC 35.0 g/dL (33.0-35.0) 01/22/19 21:52 RDW 14.0 % (11.6-16.5) 01/22/19 21:52 Plt Count 134 X10^3/uL (150.0-450.0) L 01/22/19 21:52 MPV 8.2 fL (7.4-11.0) 01/22/19 21:52 Neut % (Auto) 66.2 % (42.0-75.0) 01/22/19 21:52 Lymph % (Auto) 23.2 % (21.0-51.0) 01/22/19 21:52 [place] % (Auto) 8.3 % (0.0-13.0) 01/22/19 21:52 Eos % (Auto) 1.6 % (0.9-2.9) 01/22/19 21:52 Baso % (Auto) 0.7 % (0.2-1.0) 01/22/19 21:52 Neut # (Auto) 4.9 x10^3/uL (2.2-4.8) H 01/22/19 21:52 Lymph # (Auto) 1.7 X10^3/uL (1.3-2.9) 01/22/19 21:52 [place] # (Auto) 0.6 x10^3/uL (0.3-0.8) 01/22/19 21:52 Eos # (Auto) 0.1 x10^3/uL (0.0-0.2) 01/22/19 21:52 Baso # (Auto) 0.0 X10^3/uL (0.0-0.1) 01/22/19 21:52 Absolute Nucleated RBC 0.1 /100WBC 01/22/19 21:52 INR Target Range - 01/22/19 21:52 INR 0.91 (0.8-1.3) 01/22/19 21:52 APTT 26.9 SECONDS (22.9-36.5) 01/22/19 21:52 PTT Comment - 01/22/19 21:52 Fibrinogen 318 mg/dL (239-489) 01/22/19 21:52 Sodium 140 mmol/L (136-145) 01/22/19 21:52 Corrected Sodium TNP 01/22/19 21:52 Potassium 3.6 mmol/L (3.5-5.1) 01/22/19 21:52 Chloride 102 mmol/L (98-107) 01/22/19 21:52 Carbon Dioxide 26.3 mmol/L (21-32) 01/22/19 21:52 BUN 12 mg/dL (7-18) 01/22/19 21:52 Creatinine 1.55 mg/dL (0.55-1.02) H 01/22/19 21:52 Est GFR (MDRD) Af Amer 41 (>60) L 01/22/19 21:52 Est GFR (MDRD) Non-Af 34 (>60) L 01/22/19 21:52 Glucose 100 mg/dL (65-99) H 01/22/19 21:52 Calcium 9.1 mg/dL (8.5-10.1) 01/22/19 21:52 Corrected Calcium TNP 01/22/19 21:52 Total Bilirubin 0.30 mg/dL (0.2-1.0) 01/22/19 21:52 AST 23 Units/L (15-37) 01/22/19 21:52 ALT 41 Units/L (12-78) 01/22/19 21:52 Alkaline Phosphatase 44 Units/L (46-116) L 01/22/19 21:52 Total Protein 6.3 g/dL (6.4-8.2) L 01/22/19 21:52 Albumin 3.6 g/dL (3.4-5.0) 01/22/19 21:52 Globulin 2.7 g/dL (2.5-4.5) 01/22/19 21:52 Albumin/Globulin Ratio 1.3 Ratio (1.1-2.1) 01/22/19 21:52 Other Results Comments: Radiologist report CT Head w/o: mild atrophy and moderate chronic micro-ischemic changes in the deep white matter with no acute abnormality seen. EKG Rate: 76 [place]: Normal Rhythm: NSR Block: None Hypertrophy: LVH ST: Normal Diagnosis Discharge Problem: Brain TIA, Benign essential HTN, Chronic GERD COPD (chronic obstructive pulmonary disease) Qualifiers: COPD type: chronic bronchitis Chronic bronchitis type: simple Qualified Code(s): J41.0 - Simple chronic bronchitis Hypothyroidism Qualifiers: Hypothyroidism type: acquired Qualified Code(s): E03.9 - Hypothyroidism, unspecified
[2019-01-22 22:25] LABS: ALANINE AMINOTRANSFERASE 41 Units/L (12-78); ALBUMIN 3.6 g/dL (3.4-5.0); ALKALINE PHOSPHATASE 44 Units/L (46-116); ASPARTATE AMINO TRANSFERASE 23 Units/L (15-37); BLOOD UREA NITROGEN 12 mg/dL (7-18); CALCIUM 9.1 mg/dL (8.5-10.1); CARBON DIOXIDE 26.3 mmol/L (21-32); CHLORIDE 102 mmol/L (98-107); CREATININE 1.55 mg/dL (0.55-1.02); SODIUM 140 mmol/L (136-145); TOTAL PROTEIN 6.3 g/dL (6.4-8.2); eGFR NON BLACK RACES 34 (>60)
[2019-01-22] MEDS ORDERED: ASPIRIN 81 MG CHEWTAB ONE (23:29)
[2019-01-22] MEDS: PLAVIX PO SCH (23:34)
[2019-01-23 00:06] VITALS: BMI 31.8
[2019-01-23] MEDS ORDERED: LASIX PO PRN (00:34)
[2019-01-23] MEDS ORDERED: RESTORIL CAP 30 MG PO PRN (00:34)
[2019-01-23] MEDS ORDERED: ULTRAM PO PRN (00:34)
[2019-01-23] MEDS ORDERED: VOLTAREN 1 % GEL MULTI DOSE TUBE TOP PRN (00:34)
[2019-01-23] MEDS ORDERED: PATIENT'S HOME MEDICATION (Fluticasone-Umeclidin-Vilanter [Trelegy Ellipta] 1 INH) IN SCH (00:45)
[2019-01-23 04:20] LABS: BILIRUBIN,URINE NEGATIVE (NEGATIVE); BLOOD/HEMOGLOBIN,URINE NEGATIVE (NEGATIVE); GLUCOSE, URINE NEGATIVE (NEGATIVE); KETONES,URINE NEGATIVE (NEGATIVE); LEUKOCYTE ESTERASE ,URINE NEGATIVE (NEGATIVE); NITRITES,URINE NEGATIVE (NEGATIVE); PROTEIN,URINE NEGATIVE (NEGATIVE); UROBILINOGEN,URINE NORMAL (NORMAL)
[2019-01-23 04:34] LABS: APPEARANCE,URINE CLEAR (CLEAR); COLOR,URINE PALE YELLOW (YELLOW)
[2019-01-23 06:32] LABS: BASOPHILS % (AUTO) 0.5 % (0.2-1.0); EOSINOPHILS # (AUTO) 0.2 x10^3/uL (0.0-0.2); EOSINOPHILS % (AUTO) 2.4 % (0.9-2.9); HEMATOCRIT 35.6 % (36.0-47.0); HEMOGLOBIN 12.4 g/dL (12.0-16.0); LYMPHOCYTES # (AUTO) 1.7 X10^3/uL (1.3-2.9); LYMPHOCYTES % (AUTO) 25.4 % (21.0-51.0); MEAN CORPUSCULAR HEMOGLOBIN 33.7 pg (27.0-34.0); MEAN CORPUSCULAR VOLUME 96.3 fL (80.0-100.0); MEAN PLATELET VOLUME 8.3 fL (7.4-11.0); MONOCYTES # (AUTO) 0.6 x10^3/uL (0.3-0.8); MONOCYTES % (AUTO) 8.6 % (0.0-13.0); NEUTROPHILS # (AUTO) 4.2 x10^3/uL (2.2-4.8); NEUTROPHILS % (AUTO) 63.1 % (42.0-75.0); PLATELET COUNT 128 X10^3/uL (150.0-450.0); RED BLOOD COUNT 3.69 X10^6/uL (3.5-5.4); RED CELL DISTRIBUTION WIDTH 13.9 % (11.6-16.5); WHITE BLOOD COUNT 6.7 X10^3/uL (3.6-10.0)
--- NOTE | 2019-01-23 06:35 | RAD ---
HISTORY: Shortness of breath Study: Chest AP portable Comparison: 01/12/2019 Findings: The heart is within normal limits in size. The david are normal. The lungs are free of acute alveolar infiltrates. No pleural effusions are identified. There is some subsegmental atelectasis in the left lung base. IMPRESSION: No acute infiltrates Subsegmental atelectasis left lung base Reported By:
[2019-01-23 06:55] LABS: ALANINE AMINOTRANSFERASE 42 Units/L (12-78); ALBUMIN 3.3 g/dL (3.4-5.0); ALKALINE PHOSPHATASE 37 Units/L (46-116); ASPARTATE AMINO TRANSFERASE 25 Units/L (15-37); BLOOD UREA NITROGEN 14 mg/dL (7-18); CALCIUM 8.8 mg/dL (8.5-10.1); CHLORIDE 103 mmol/L (98-107); COR CA(FOR HYPOALB) 9.4 mg/dL (8.5-10.1); CREATININE 1.31 mg/dL (0.55-1.02); SODIUM 140 mmol/L (136-145); eGFR NON BLACK RACES 42 (>60)
[2019-01-23] MEDS: ASPIRIN EC 81 MG PO SCH (08:22)
[2019-01-23] MEDS: CELEBREX PO SCH (08:23)
[2019-01-23] MEDS: MICRO K EXTEN CAP 10 MEQ PO SCH (08:23)
[2019-01-23] MEDS: MYSOLINE PO SCH ×2 (08:23→20:22)
[2019-01-23] MEDS: PLAVIX PO SCH (08:23)
[2019-01-23] MEDS: PriLOSEC PO SCH ×2 (08:24→20:22)
[2019-01-23] MEDS: SYNTHROID 50 mcg TAB PO SCH (08:24)
[2019-01-23] MEDS ORDERED: DUONEB 0.5 MG/3 MG NEB SCH (09:00)
[2019-01-23] MEDS ORDERED: PATIENT'S HOME MEDICATION (Tiotropium Bromide Monohydrate 1 CAP) IN SCH (09:00)
[2019-01-23] MEDS ORDERED: TEMOVATE SOLN TOP SCH (09:00)
[2019-01-23] MEDS ORDERED: FLONASE NASAL SPRAY ENOSTRIL SCH (09:00)
[2019-01-23] MEDS: DUONEB 0.5 MG/3 MG NEB SCH ×4 (09:17→20:00)
[2019-01-23] MEDS: PULMICORT NEB TX 0.5 MG NEB SCH ×2 (09:17→20:00)
--- NOTE | 2019-01-23 13:26 | MRI ---
STUDY: MRI OF THE BRAIN WITHOUT GADOLINIUM HISTORY: TIA. COPD. Hypertension. Left-sided facial drooping and headache. Trouble forming words. Technique: Multiplanar multi-sequence MRI of the brain was obtained utilizing standard departmental protocol. Sagittal and axial T1, axial T2, FLAIR, diffusion (DWI/ADC), GRE, and coronal T2 images through the brain were performed. Comparison: Head CT dated January 22, 2019. Findings: The sulci, cisterns and ventricles are prominent consistent with diffuse volume loss. There are thick confluent and scattered foci of T2 prolongation in the periventricular and subcortical white matter of both hemispheres. This is a nonspecific finding which likely represents microangiopathic change in a patient of this age. There is a focus of restricted diffusion in the left precentral gyrus, with some involvement of the adjacent subcortical centrum semiovale. There is a small chronic infarct in the right occipital lobe. There is no evidence of acute hemorrhage, mass, mass effect, or midline shift. There are no abnormal intra-axial or extra-axial fluid collections. The major intracranial vascular flow voids appear intact. The left vertebral artery appears dominant. There is calvarial hyperostosis. There is bilateral aphakia. IMPRESSION: 1. Acute to early subacute infarct in the left precentral gyrus. 2. 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 3. Nonspecific white matter change and volume loss. Reported By:
[2019-01-23] MEDS ORDERED: PHARMACY CONSULT - DOSE _____ XX SCH (14:00)
--- NOTE | 2019-01-23 15:26 | VAS ---
History: TIA Study: Carotid duplex ultrasound Comparison: None Findings: Images show no significant plaque formation. Peak systolic velocity in the distal right common carotid artery is 88 centimeters/second and in the right internal carotid artery is 58.3 centimeters/second for a ratio of 0.66. Peak systolic velocity in the distal left common carotid artery is 61.6 centimeters/second and in the left internal carotid artery is 70.6 centimeters/second for a ratio of 1.14. There is antegrade flow in the vertebral arteries, right dominant. Impression : No evidence for significant plaque formation or stenosis Reported By:
[2019-01-23] MEDS: LOVENOX INJ 30 MG SYR SC SCH ×2 (15:50→20:23)
[2019-01-23] MEDS ORDERED: ZyrTEC TAB 10 MG PO SCH (21:00)
[2019-01-23] MEDS ORDERED: NEURONTIN CAP 100 MG PO SCH (21:00)
[2019-01-23] MEDS ORDERED: CRESTOR TAB 10 MG PO SCH (21:00)
[2019-01-23] MEDS ORDERED: REQUIP PO SCH (21:00)
[2019-01-23] MEDS ORDERED: MACRODANTIN 50 MG CAP PO SCH (21:00)
--- NOTE | 2019-01-23 21:10 | DR.H&P ---
H&P - History & Physical for Day of: H&P Date: 01/22/19 - Chief Complaint Chief Complaint: WEAKNESS, SLURRED SPEECH - History of Present Illness History of Present Illness: IS A 79 YEAR OLD PATIENT OF OURS WHO PRESENTED TO THE ER WITH FAMILY REPORTING WEAKNESS AND SLURRED SPEECH THAT STARTED APPROXIMATELY AN HOUR PRIOR TO ARRIVAL. ON EXAMINATION, SHE IS NOTED WITH SLIGHT RIGHT SIDED FACIAL DROOPING AND SHE HAS AN UNSTEADY GAIT. ON ARRIVAL, VITALS WERE 98.2-85-20-96%-144/80. LABS WERE OBTAINED. ABNORMAL LAB VALUES INLCLUDE THE FOLLOWING: PLT COUNT 134, CREATININE 1.55, GLUCOSE 100, ALK PHOS 44, TOTAL PROTEIN 6.3. URINALYSIS NEGATIVE. SPUTUM CULTURE PENDING. A BRAIN CT WAS OBTAINED AND REVEALED: Mild atrophy and moderate chronic microischemic changes in the deep white matter with no acute abnormality seen. EKG OBTAINED AND REVEALED: SINUS RHYTHM WITH HR 76. A TELEMED STROKE CONSULT WAS OBTAINED IN THE ER. PATIENT NOT A CANDIDATE FOR TPA. SHE WAS ADMITTED FOR FURTHER EVALUATION AND TREATMENT OF WEAKNESS, SLURRED SPEECH, AND FACIAL DROOPING, RULE OUT CVA. WE WILL OBTAIN A BRAIN MRI, CAROTID DOPPLER, AND ECHO IN THE MORNING. SHE WAS STARTED ON ASPIRIN AND PLAVIX. OTHERWISE, WE PLAN TO FOLLOW UP WITH AM LABS AND CONTINUE TO MONITOR. - Past Medical History Past Medical History: Hyperthyroidism, COPD, Asthma, GERD, Arthritis, CHF - Past Surgical History Surgical History: Appendectomy, Cholecystectomy, Hysterectomy, Tonsillectomy - Family History Family Medical History: Cancer, [place], Hypertension - Social History Does any household member use tobacco: No Alcohol Use: None Drug Use: None - Medications Home Medications: No Known Drug Allergies Allergy (Verified 01/08/19 18:39) - Review of Systems Constitutional: Weakness Eyes: No Symptoms Reported ENT: No Symptoms Reported Respiratory: No Symptoms Reported Cardiovascular: No Symptoms Reported Gastrointestinal: No Symptoms Reported Genitourinary: No Symptoms Reported Musculoskeletal: No Symptoms Reported Skin: No Symptoms Reported Neurological: Weakness, Change in Speech, Other (RIGHT SIDED FACIAL DROOPING ) - Physical Exam Vital Signs: Temperature 98.3 F Pulse Rate [Left Brachial] 81 Pulse Rate 93 Respiratory Rate 20 Blood Pressure [Left Arm] 105/59 Blood Pressure [Right Arm] 141/68 Blood Pressure 144/80 O2 Sat by Pulse Oximetry 93 Oriented: Normal Eyes: Normal Ear: Normal Nose: Normal Throat: Normal Respiratory: Diminished Throughout Cardiovascular: Normal : Normal Auscultation: Bowel Sounds: Normal Palpation: Normal Tenderness: Normal Skin: Normal Musculoskeletal: Right, Motor Deficit (RIGHT SIDED WEAKNESS ) Psychiatric: Normal Mood Description: Calm Affect: Normal Speech Pattern: Slurred - Assessment/Plan (1) Brain TIA Status: Acute Plan: OBTAIN BRAIN MRI, ECHO, CAROTID DOPPLER, CONTINUE TO MONITOR (2) Generalized weakness Status: Acute (3) Slurred speech Status: Acute - Allergies Allergies/Adverse Reactions: Allergies Allergy/AdvReac Type Severity Reaction Status Date / Time No Known Drug Allergies Allergy Verified 01/08/19 18:39
[2019-01-23] MEDS ORDERED: ASPIRIN 81 MG CHEWTAB PO ONE (22:47)
[2019-01-24 05:07] LABS: BASOPHILS % (AUTO) 0.4 % (0.2-1.0); EOSINOPHILS # (AUTO) 0.1 x10^3/uL (0.0-0.2); EOSINOPHILS % (AUTO) 1.9 % (0.9-2.9); HEMATOCRIT 35.9 % (36.0-47.0); HEMOGLOBIN 12.3 g/dL (12.0-16.0); LYMPHOCYTES # (AUTO) 1.4 X10^3/uL (1.3-2.9); LYMPHOCYTES % (AUTO) 22.6 % (21.0-51.0); MEAN CORPUSCULAR HEMOGLOBIN 33.6 pg (27.0-34.0); MEAN CORPUSCULAR HGB CONC 34.2 g/dL (33.0-35.0); MEAN CORPUSCULAR VOLUME 98.4 fL (80.0-100.0); MEAN PLATELET VOLUME 8.8 fL (7.4-11.0); MONOCYTES # (AUTO) 0.5 x10^3/uL (0.3-0.8); MONOCYTES % (AUTO) 8.3 % (0.0-13.0); NEUTROPHILS % (AUTO) 66.8 % (42.0-75.0); PLATELET COUNT 137 X10^3/uL (150.0-450.0); RED BLOOD COUNT 3.65 X10^6/uL (3.5-5.4); RED CELL DISTRIBUTION WIDTH 14.1 % (11.6-16.5)
[2019-01-24 05:23] LABS: ALBUMIN 3.1 g/dL (3.4-5.0); CALCIUM 8.8 mg/dL (8.5-10.1); CARBON DIOXIDE 26.6 mmol/L (21-32); COR CA(FOR HYPOALB) 9.5 mg/dL (8.5-10.1); CREATININE 1.24 mg/dL (0.55-1.02); TOTAL PROTEIN 5.7 g/dL (6.4-8.2)
[2019-01-24] MEDS: DUONEB 0.5 MG/3 MG NEB SCH ×2 (08:25→12:05)
[2019-01-24] MEDS: PULMICORT NEB TX 0.5 MG NEB SCH (08:25)
[2019-01-24] MEDS: MICRO K EXTEN CAP 10 MEQ PO SCH (08:40)
[2019-01-24] MEDS: LOVENOX INJ 30 MG SYR SC SCH (08:40)
[2019-01-24] MEDS: ASPIRIN EC 81 MG PO SCH (08:40)
[2019-01-24] MEDS: CELEBREX PO SCH (08:40)
[2019-01-24] MEDS: PLAVIX PO SCH (08:41)
[2019-01-24] MEDS: MYSOLINE PO SCH (08:41)
[2019-01-24] MEDS: PriLOSEC PO SCH (08:56)
[2019-01-24] MEDS: SYNTHROID 50 mcg TAB PO SCH (08:56)
[2019-01-24 12:01] VITALS: BP 137/67
== END 2019-01-24 13:20 | disposition home or self-care (01) ==
LOC: ER 21:25 → MED/SURG 21:25
PROVIDERS: ADMIT Internal Medicine; ATTEND Internal Medicine
DX: J44.9 Chronic obstructive pulmonary disease, unspecified; R29.810 Facial weakness; R94.31 Abnormal electrocardiogram [ECG] [EKG]; E03.8 Other specified hypothyroidism; R94.4 Abnormal results of kidney function studies; Z79.01 Long term (current) use of anticoagulants; G45.8 Other transient cerebral ischemic attacks and related syndromes; J44.0 Chronic obstructive pulmonary disease with (acute) lower respiratory infection; I10 Essential (primary) hypertension; R26.89 Other abnormalities of gait and mobility; K21.9 Gastro-esophageal reflux disease without esophagitis; R47.81 Slurred speech
CPT/HCPCS: 36415; 70450; 70551; 71010; 71045; 80053; 81003; 83735; 85025; 85384; 85610; 85730; 87070; 87205; 92507; 92523; 93005; 93306; 93880; 94640; 94760; 96365; 96372; 97161; 99284; A4222; G0378; J1650; J7620; J7626

== ENCOUNTER 2019-07-08 14:10 | Inpatient (IN) ==
[2019-07-08] MEDS ORDERED: TUSSIONEX PENNKINETIC SUSP PO PRN (16:47)
[2019-07-08] MEDS ORDERED: LEVAQUIN PREMIX IV 750 MG 750 MG/150 ML BAG IV SCH (17:00)
[2019-07-08] MEDS ORDERED: DUONEB 0.5 MG/3 MG NEB SCH (17:00)
[2019-07-08 17:25] VITALS: BMI 28.7
[2019-07-08] MEDS ORDERED: NS 1/2 1000 ML IV 1,000 ML IV ONE (17:26)
[2019-07-08] MEDS ORDERED: FORTAZ or TAZICEF VIAL INJ ONE (17:27)
[2019-07-08] MEDS ORDERED: ROBITUSSIN DM ONE (17:27)
[2019-07-08] MEDS ORDERED: SOLU-Medrol 40 MG VIAL ONE (17:27)
[2019-07-08] MEDS ORDERED: VSL#3 PO ONE (17:28)
[2019-07-08] MEDS ORDERED: LEVAQUIN PREMIX IV 750 MG 750 MG/150 ML BAG IV ONE (17:28)
[2019-07-08] MEDS: SOLU-Medrol 40 MG VIAL IVP SCH ×2 (17:32→21:41)
[2019-07-08] MEDS: ROBITUSSIN DM PO SCH ×2 (17:32→21:40)
[2019-07-08] MEDS: NS 1/2 1000 ML IV 1,000 ML IV SCH ×2 (17:32→17:35)
[2019-07-08] MEDS: VSL#3 PO SCH (17:33)
[2019-07-08] MEDS: FORTAZ or TAZICEF VIAL INJ 1 G in NS 100 ML IV + SPIKE MINIBAG* 100 ML IV SCH ×4 (17:34→21:50)
[2019-07-08] MEDS ORDERED: NS 100 ML IV 0 ML IV ONE (17:39)
[2019-07-08] MEDS ORDERED: NS 100 ML IV + SPIKE MINIBAG* 100 ML IV ONE (17:40)
--- NOTE | 2019-07-08 17:57 | RAD ---
Exam: Portable chest History: 79-year-old female with shortness of breath. Comparison: Previous chest radiograph from 01/23/2019 Findings: Heart size and pulmonary vasculature are within normal limits. Mild interstitial changes are noted at the lung bases. Otherwise lungs are clear with no actual infiltrate or significant effusion on either side. Surgical hardware is identified in the proximal left humerus. Otherwise bony thorax is unremarkable. Impression: No acute cardiopulmonary abnormality is seen on this exam Reported By:
--- NOTE | 2019-07-08 18:34 | DR.UPDATE ---
H&P Update History and Physical Update: History and Physical reviewed and patient examined. Changes noted: Yes with the following: RETURNED TO THE OFFICE TODAY FOR COMPLAINTS OF PERSISTENT COUGH AND SHORTNESS OF BREATH. SHE HAS BEEN RECEIVING LEVAQUIN PO, MEDROL DOSE PACK, AND ALBUTEROL NEB TREATMENTS. SHE DENIES IMPROVEMENT IN SYMPTOMS. SHE WAS ADMITTED FOR FURTHER EVALUATION AND TREATMENT OF BRONCHOPNEUMONIA. ON ADMISSION, WE PLAN TO OBTAIN LABS, CHEST XRAY, AND BLOOD/SPUTUM CULTURES. WE WILL START IV LEVAQUIN, IV FORTAZ, RESPIRATORY TREATMENTS, AND SUPPLEMENTAL OXYGEN. OTHERWISE, WE PLAN TO FOLLOW UP WITH AM LABS AND CONTINUE TO MONITOR. Prescription drug monitoring program results: PDMP was not reviewed
[2019-07-08 18:58] LABS: BASOPHILS % (AUTO) 0.3 % (0.2-1.0); EOSINOPHILS # (AUTO) 0.4 x10^3/uL (0.0-0.2); EOSINOPHILS % (AUTO) 2.9 % (0.9-2.9); HEMOGLOBIN 13.3 g/dL (12.0-16.0); LYMPHOCYTES # (AUTO) 4.2 X10^3/uL (1.3-2.9); LYMPHOCYTES % (AUTO) 31.7 % (21.0-51.0); MEAN CORPUSCULAR HEMOGLOBIN 33.1 pg (27.0-34.0); MEAN CORPUSCULAR VOLUME 94.6 fL (80.0-100.0); MEAN PLATELET VOLUME 8.9 fL (7.4-11.0); MONOCYTES # (AUTO) 0.9 x10^3/uL (0.3-0.8); NEUTROPHILS # (AUTO) 7.7 x10^3/uL (2.2-4.8); NEUTROPHILS % (AUTO) 58.1 % (42.0-75.0); PLATELET COUNT 222 X10^3/uL (150.0-450.0); RED BLOOD COUNT 4.01 X10^6/uL (3.5-5.4); RED CELL DISTRIBUTION WIDTH 14.4 % (11.6-16.5); WHITE BLOOD COUNT 13.3 X10^3/uL (3.6-10.0)
[2019-07-08 19:18] LABS: ALANINE AMINOTRANSFERASE 35 Units/L (12-78); ALBUMIN 3.4 g/dL (3.4-5.0); ALKALINE PHOSPHATASE 41 Units/L (46-116); ASPARTATE AMINO TRANSFERASE 29 Units/L (15-37); BLOOD UREA NITROGEN 25 mg/dL (7-18); CALCIUM 9.6 mg/dL (8.5-10.1); CARBON DIOXIDE 26.4 mmol/L (21-32); CHLORIDE 99 mmol/L (98-107); CREATININE 1.36 mg/dL (0.55-1.02); SODIUM 138 mmol/L (136-145); TOTAL PROTEIN 6.7 g/dL (6.4-8.2); eGFR NON BLACK RACES 40 (>60)
[2019-07-08] MEDS ORDERED: K-RIDER 10 MEQ/NS 100 ML 10 MEQ/100 ML BAG IV PRN (19:36)
[2019-07-08] MEDS ORDERED: KLOR-CON PO PRN (19:36)
[2019-07-08] MEDS ORDERED: POTASSIUM CHL 60 MEQ/NS 0.45% 500 ML IV PRN (19:36)
[2019-07-08] MEDS ORDERED: MICRO K EXTEN CAP 10 MEQ PO PRN (19:36)
[2019-07-08] MEDS ORDERED: MAGNESIUM SULFATE 1 GRAM/100 mL PREMIX 1 GM/100 ML BAG IV PRN (19:36)
[2019-07-08] MEDS ORDERED: POTASSIUM CHLORIDE LIQ 20 MEQ UDC PO PRN (19:36)
[2019-07-08] MEDS ORDERED: POTASSIUM CHL 40 MEQ/NS 0.45% 500 ML IV PRN (19:36)
[2019-07-08] MEDS ORDERED: LASIX PO PRN (20:24)
[2019-07-08] MEDS: K-DUR TAB 20 MEQ PO PRN (20:32)
[2019-07-08] MEDS ORDERED: MACRODANTIN 50 MG CAP PO SCH (21:00)
[2019-07-08] MEDS: PULMICORT NEB TX 0.5 MG NEB SCH (21:25)
[2019-07-08] MEDS: DUONEB 0.5 MG/3 MG NEB SCH (21:25)
[2019-07-08] MEDS: MIRAPEX TAB 0.25 MG PO SCH (21:40)
[2019-07-08] MEDS: PriLOSEC PO SCH (21:40)
[2019-07-08] MEDS: CRESTOR TAB 10 MG PO SCH (21:40)
[2019-07-08] MEDS: ZyrTEC TAB 10 MG PO SCH (21:41)
[2019-07-08] MEDS: RESTORIL CAP 30 MG PO PRN (21:41)
[2019-07-08] MEDS: NYSTATIN SUSP PO SCH (21:41)
[2019-07-08] MEDS: LEVAQUIN PREMIX IV 750 MG 750 MG/150 ML BAG IV SCH (21:52)
[2019-07-09] MEDS: K-DUR TAB 20 MEQ PO PRN (00:38)
[2019-07-09] MEDS: SOLU-Medrol 40 MG VIAL IVP SCH ×3 (05:27→21:42)
[2019-07-09 06:58] LABS: BASOPHILS % (AUTO) 0.1 % (0.2-1.0); EOSINOPHILS % (AUTO) 0.1 % (0.9-2.9); HEMATOCRIT 33.9 % (36.0-47.0); HEMOGLOBIN 12.1 g/dL (12.0-16.0); LYMPHOCYTES # (AUTO) 0.9 X10^3/uL (1.3-2.9); LYMPHOCYTES % (AUTO) 8.8 % (21.0-51.0); MEAN CORPUSCULAR HEMOGLOBIN 33.5 pg (27.0-34.0); MEAN CORPUSCULAR HGB CONC 35.7 g/dL (33.0-35.0); MEAN CORPUSCULAR VOLUME 93.7 fL (80.0-100.0); MEAN PLATELET VOLUME 8.7 fL (7.4-11.0); MONOCYTES # (AUTO) 0.2 x10^3/uL (0.3-0.8); MONOCYTES % (AUTO) 1.7 % (0.0-13.0); NEUTROPHILS # (AUTO) 8.7 x10^3/uL (2.2-4.8); NEUTROPHILS % (AUTO) 89.3 % (42.0-75.0); PLATELET COUNT 205 X10^3/uL (150.0-450.0); RED BLOOD COUNT 3.62 X10^6/uL (3.5-5.4); RED CELL DISTRIBUTION WIDTH 14.2 % (11.6-16.5); WHITE BLOOD COUNT 9.8 X10^3/uL (3.6-10.0)
[2019-07-09 07:19] LABS: ALBUMIN 2.8 g/dL (3.4-5.0); CALCIUM 8.7 mg/dL (8.5-10.1); CARBON DIOXIDE 22.6 mmol/L (21-32); COR CA(FOR HYPOALB) 9.7 mg/dL (8.5-10.1); CREATININE 1.34 mg/dL (0.55-1.02); TOTAL PROTEIN 5.9 g/dL (6.4-8.2)
[2019-07-09 07:33] LABS: PLATELET MORPHOLOGY COMMENT NORMAL (NORMAL)
[2019-07-09] MEDS: DUONEB 0.5 MG/3 MG NEB SCH ×4 (09:19→21:35)
[2019-07-09] MEDS: PULMICORT NEB TX 0.5 MG NEB SCH ×2 (09:19→21:35)
[2019-07-09] MEDS: ROBITUSSIN DM PO SCH ×5 (10:29→20:09)
[2019-07-09] MEDS: VSL#3 PO SCH (10:30)
[2019-07-09] MEDS: NYSTATIN SUSP PO SCH ×4 (10:30→20:06)
[2019-07-09] MEDS: MICRO K EXTEN CAP 10 MEQ PO SCH (10:31)
[2019-07-09] MEDS: ASPIRIN EC 81 MG PO SCH (10:31)
[2019-07-09] MEDS: FORTAZ or TAZICEF VIAL INJ 1 G in NS 100 ML IV + SPIKE MINIBAG* 100 ML IV SCH ×2 (10:31→20:07)
[2019-07-09] MEDS: SYNTHROID 50 mcg TAB PO SCH (10:32)
[2019-07-09] MEDS: PriLOSEC PO SCH ×2 (10:32→20:09)
[2019-07-09] MEDS: MIRAPEX TAB 0.25 MG PO SCH ×2 (10:32→20:07)
[2019-07-09] MEDS: TOPROL XL PO SCH (10:32)
[2019-07-09] MEDS: PLAVIX PO SCH (10:33)
[2019-07-09] MEDS: NS 1/2 1000 ML IV 1,000 ML IV SCH ×3 (10:38→21:42)
[2019-07-09] MEDS ORDERED: NS 1/2 1000 ML IV 1,000 ML IV ONE (12:11)
[2019-07-09] MEDS: LOVENOX INJ 40 MG SYR SC SCH (12:25)
[2019-07-09] MEDS: ZyrTEC TAB 10 MG PO SCH (20:06)
[2019-07-09] MEDS: CRESTOR TAB 10 MG PO SCH (20:06)
[2019-07-09] MEDS: MACROBID CAP 100 MG EXT REL PO SCH (20:06)
[2019-07-09] MEDS: RESTORIL CAP 30 MG PO PRN (20:23)
[2019-07-10] MEDS ORDERED: NS 1000 ML 1,000 ML ONE (01:42)
[2019-07-10] MEDS: NS 1/2 1000 ML IV 1,000 ML IV SCH ×2 (01:45→17:51)
[2019-07-10] MEDS: SOLU-Medrol 40 MG VIAL IVP SCH ×3 (05:03→21:11)
[2019-07-10 06:42] LABS: BASOPHILS % (AUTO) 0.3 % (0.2-1.0); EOSINOPHILS % (AUTO) 0.1 % (0.9-2.9); HEMATOCRIT 32.2 % (36.0-47.0); HEMOGLOBIN 11.2 g/dL (12.0-16.0); LYMPHOCYTES # (AUTO) 1.1 X10^3/uL (1.3-2.9); LYMPHOCYTES % (AUTO) 6.3 % (21.0-51.0); MEAN CORPUSCULAR HEMOGLOBIN 33.2 pg (27.0-34.0); MEAN CORPUSCULAR HGB CONC 34.7 g/dL (33.0-35.0); MEAN CORPUSCULAR VOLUME 95.5 fL (80.0-100.0); MEAN PLATELET VOLUME 8.7 fL (7.4-11.0); MONOCYTES # (AUTO) 0.6 x10^3/uL (0.3-0.8); MONOCYTES % (AUTO) 3.7 % (0.0-13.0); NEUTROPHILS # (AUTO) 15.3 x10^3/uL (2.2-4.8); NEUTROPHILS % (AUTO) 89.6 % (42.0-75.0); PLATELET COUNT 193 X10^3/uL (150.0-450.0); RED BLOOD COUNT 3.37 X10^6/uL (3.5-5.4); RED CELL DISTRIBUTION WIDTH 14.2 % (11.6-16.5); WHITE BLOOD COUNT 17.1 X10^3/uL (3.6-10.0)
[2019-07-10 07:03] LABS: ALANINE AMINOTRANSFERASE 31 Units/L (12-78); ALBUMIN 2.8 g/dL (3.4-5.0); ALKALINE PHOSPHATASE 32 Units/L (46-116); ASPARTATE AMINO TRANSFERASE 25 Units/L (15-37); BLOOD UREA NITROGEN 18 mg/dL (7-18); CALCIUM 8.8 mg/dL (8.5-10.1); CARBON DIOXIDE 20.8 mmol/L (21-32); CHLORIDE 107 mmol/L (98-107); COR CA(FOR HYPOALB) 9.8 mg/dL (8.5-10.1); COR NA(FOR HYPERGLY) 141 mmol/L (136-145); CREATININE 1.07 mg/dL (0.55-1.02); SODIUM 140 mmol/L (136-145); TOTAL PROTEIN 5.7 g/dL (6.4-8.2); eGFR NON BLACK RACES 52 (>60)
[2019-07-10] MEDS: DUONEB 0.5 MG/3 MG NEB SCH ×4 (09:21→20:20)
[2019-07-10] MEDS: PULMICORT NEB TX 0.5 MG NEB SCH ×2 (09:21→20:20)
[2019-07-10] MEDS: FORTAZ or TAZICEF VIAL INJ 1 G in NS 100 ML IV + SPIKE MINIBAG* 100 ML IV SCH ×2 (09:51→21:07)
[2019-07-10] MEDS: LOVENOX INJ 40 MG SYR SC SCH (09:52)
[2019-07-10] MEDS: PLAVIX PO SCH (09:53)
[2019-07-10] MEDS: NYSTATIN SUSP PO SCH ×4 (09:53→21:07)
[2019-07-10] MEDS: MICRO K EXTEN CAP 10 MEQ PO SCH (09:53)
[2019-07-10] MEDS: ROBITUSSIN DM PO SCH ×4 (09:53→21:05)
[2019-07-10] MEDS: SYNTHROID 50 mcg TAB PO SCH (09:53)
[2019-07-10] MEDS: TOPROL XL PO SCH (09:54)
[2019-07-10] MEDS: ASPIRIN EC 81 MG PO SCH (09:54)
[2019-07-10] MEDS: PriLOSEC PO SCH ×2 (09:54→21:06)
[2019-07-10] MEDS: VSL#3 PO SCH (09:55)
[2019-07-10] MEDS: MIRAPEX TAB 0.25 MG PO SCH ×2 (10:00→21:06)
[2019-07-10] MEDS ORDERED: NS 1/2 1000 ML IV 1,000 ML IV ONE (17:13)
[2019-07-10] MEDS: MACROBID CAP 100 MG EXT REL PO SCH (21:06)
[2019-07-10] MEDS: ZyrTEC TAB 10 MG PO SCH (21:06)
[2019-07-10] MEDS: RESTORIL CAP 30 MG PO PRN (21:07)
[2019-07-10] MEDS: CRESTOR TAB 10 MG PO SCH (21:07)
[2019-07-10] MEDS: TYLENOL 325 MG TAB PO PRN (21:08)
[2019-07-10] MEDS: LEVAQUIN PREMIX IV 750 MG 750 MG/150 ML BAG IV SCH (22:26)
[2019-07-11] MEDS: NS 1/2 1000 ML IV 1,000 ML IV SCH (01:45)
[2019-07-11] MEDS: SOLU-Medrol 40 MG VIAL IVP SCH ×2 (05:10→14:05)
--- NOTE | 2019-07-11 06:04 | RAD ---
Examination: Portable AP chest History: SOB Comparison 07/08/2019 Findings: Stable heart size with dilated aorta, essentially clear lungs and pleural spaces. There is no evidence for pneumonia, pulmonary edema or developing pleural effusion. Impression: No significant change or acute abnormality demonstrated. Reported By:
[2019-07-11 06:17] LABS: BASOPHILS % (AUTO) 0.1 % (0.2-1.0); HEMATOCRIT 31.6 % (36.0-47.0); HEMOGLOBIN 10.9 g/dL (12.0-16.0); LYMPHOCYTES % (AUTO) 6.1 % (21.0-51.0); MEAN CORPUSCULAR HEMOGLOBIN 33.1 pg (27.0-34.0); MEAN CORPUSCULAR HGB CONC 34.5 g/dL (33.0-35.0); MEAN CORPUSCULAR VOLUME 96.1 fL (80.0-100.0); MEAN PLATELET VOLUME 8.5 fL (7.4-11.0); MONOCYTES # (AUTO) 0.6 x10^3/uL (0.3-0.8); MONOCYTES % (AUTO) 3.5 % (0.0-13.0); NEUTROPHILS % (AUTO) 90.3 % (42.0-75.0); PLATELET COUNT 182 X10^3/uL (150.0-450.0); RED BLOOD COUNT 3.29 X10^6/uL (3.5-5.4); RED CELL DISTRIBUTION WIDTH 14.1 % (11.6-16.5); WHITE BLOOD COUNT 16.6 X10^3/uL (3.6-10.0)
[2019-07-11 06:33] LABS: ALANINE AMINOTRANSFERASE 50 Units/L (12-78); ALBUMIN 2.5 g/dL (3.4-5.0); ALKALINE PHOSPHATASE 30 Units/L (46-116); ASPARTATE AMINO TRANSFERASE 41 Units/L (15-37); BLOOD UREA NITROGEN 17 mg/dL (7-18); CALCIUM 8.4 mg/dL (8.5-10.1); CARBON DIOXIDE 20.6 mmol/L (21-32); CHLORIDE 108 mmol/L (98-107); COR CA(FOR HYPOALB) 9.6 mg/dL (8.5-10.1); COR NA(FOR HYPERGLY) 141 mmol/L (136-145); CREATININE 1.04 mg/dL (0.55-1.02); SODIUM 140 mmol/L (136-145); TOTAL PROTEIN 5.3 g/dL (6.4-8.2); eGFR NON BLACK RACES 54 (>60)
[2019-07-11 06:56] LABS: BAND NEUTROPHILS % 1 % (0-10); PLATELET MORPHOLOGY COMMENT NORMAL (NORMAL)
[2019-07-11] MEDS: VSL#3 PO SCH (09:32)
[2019-07-11] MEDS: ROBITUSSIN DM PO SCH ×4 (09:33→20:44)
[2019-07-11] MEDS: NYSTATIN SUSP PO SCH ×4 (09:33→20:43)
[2019-07-11] MEDS: PriLOSEC PO SCH ×2 (09:33→20:43)
[2019-07-11] MEDS: TOPROL XL PO SCH (09:33)
[2019-07-11] MEDS: PLAVIX PO SCH (09:34)
[2019-07-11] MEDS: ASPIRIN EC 81 MG PO SCH (09:35)
[2019-07-11] MEDS: MIRAPEX TAB 0.25 MG PO SCH ×2 (09:35→20:44)
[2019-07-11] MEDS: FORTAZ or TAZICEF VIAL INJ 1 G in NS 100 ML IV + SPIKE MINIBAG* 100 ML IV SCH ×2 (09:35→20:40)
[2019-07-11] MEDS: SYNTHROID 50 mcg TAB PO SCH (09:35)
[2019-07-11] MEDS: MICRO K EXTEN CAP 10 MEQ PO SCH (09:35)
[2019-07-11] MEDS: LOVENOX INJ 40 MG SYR SC SCH (09:36)
[2019-07-11] MEDS: DUONEB 0.5 MG/3 MG NEB SCH ×4 (09:40→20:10)
[2019-07-11] MEDS: PULMICORT NEB TX 0.5 MG NEB SCH ×2 (09:45→20:10)
[2019-07-11] MEDS ORDERED: NS 250 ML IV 250 ML IV ONE (11:32)
[2019-07-11] MEDS ORDERED: NS 1/2 1000 ML IV 1,000 ML IV ONE (12:35)
[2019-07-11] MEDS: DIFLUCAN 200 MG IV PREMIX* 200 MG/100 ML BAG IV SCH (14:04)
[2019-07-11] MEDS: ZyrTEC TAB 10 MG PO SCH (20:43)
[2019-07-11] MEDS: RESTORIL CAP 30 MG PO PRN (20:43)
[2019-07-11] MEDS: MACROBID CAP 100 MG EXT REL PO SCH (20:43)
[2019-07-11] MEDS: CRESTOR TAB 10 MG PO SCH (20:44)
[2019-07-11] MEDS: TYLENOL 325 MG TAB PO PRN (20:44)
--- NOTE | 2019-07-11 21:38 | PCM.PROG ---
Progress Note - Progress Note for Day of Date of Exam: 07/09/19 - Subjective Subjective: WAS ADMITTED FOR TREATMENT OF BRONCHOPNEUMONIA. TODAY, SHE IS ALERT AND ORIENTED, LYING IN BED ON MORNING ROUNDS. SHE CONTINUES WITH SHORTNESS OF BREATH AND A PRODUCTIVE COUGH. ON EXAMINATION, HEART IS REGULAR IN RATE AND RHYTHM. BILATERAL LUNGS ARE NOTED WITH SCATTERED WHEEZING AND RHONCHI THROUGHOUT. ABDOMEN IS ROUND, SOFT, AND NON-TENDER WITH NORMAL BOWEL SOUNDS IN ALL QUADRANTS. HER VITALS THIS MORNING ARE: 98.7-82-20-96%-113/64. LABS WERE OBTAINED. ABNORMAL LAB VALUES INCLUDE THE FOLLOWING: HCT 33.9, BUN 19, CREATININE 1.34, GLUCOSE 178, ALK PHOS 178, TOTAL PROTEIN 5.9, ALBUMIN 2.8. BLOOD AND SPUTUM CULTURES ARE PENDING. SHE IS CURRENTLY RECEIVING IV LEVAQUIN, IV FORTAZ, SOLU-MEDROL, RESPIRATORY TX, AND SUPPLEMENTAL OXYGEN. WE WILL CONTINUE WITH CURRENT PLAN OF CARE TODAY. WE WILL OBTAIN A CHEST CT WITH CONTRAST THIS AFTERNOON. OTHERWISE, WE WILL FOLLOW UP WITH AM LABS AND CHEST XRAY AND CONTINUE TO MONITOR. - Past Medical Family Social History Past Med/Fam/Surg Hx: No changes since H&P Allergies: Allergies No Known Drug Allergies Allergy (Verified 06/26/19 08:18) - Review of Systems ROS: No change since H&P - Vital Signs and I&O's Vital Signs: Temperature 97.7 F Pulse Rate [Right Brachial] 82 Pulse Rate 80 Respiratory Rate 17 Blood Pressure [Left Arm] 137/67 Blood Pressure [Right Arm] 136/65 Blood Pressure 111/64 O2 Sat by Pulse Oximetry 97 Intake and Output: Intake & Output 07/09/19 07/10/19 07/11/19 07/12/19 11:59 11:59 11:59 11:59 Intake Total 1696 / 1696 2280 / 2280 3214 / 3214 460 / 460 Balance 1696 / 1696 2280 / 2280 3214 / 3214 460 / 460 - Physical Exam Oriented: Normal Eyes: Normal Ear: Normal Nose: Normal Throat: Normal Respiratory: Normal, Wheezes, Rhonchi Cardiovascular: Normal : Normal Auscultation: Bowel Sounds: Normal Palpation: Normal Tenderness: Normal Skin: Normal Musculoskeletal: Normal Psychiatric: Normal Mood Description: Calm Affect: Normal Speech Pattern: Clear, Appropriate - Laboratory and Diagnostics Result Diagrams: 07/11/19 05:46 07/11/19 05:46 Labs: 07/08/19 18:45 Blood Blood Culture - Preliminary 07/08/19 18:06 Blood Blood Culture - Preliminary 07/08/19 17:13 Sputum - Expectorated Sputum Sputum Culture - Final 07/08/19 17:13 Sputum - Expectorated Sputum - Final Laboratory WBC 16.6 X10^3/uL (3.6-10.0) H 07/11/19 05:46 RBC 3.29 X10^6/uL (3.5-5.4) L 07/11/19 05:46 Hgb 10.9 g/dL (12.0-16.0) L 07/11/19 05:46 Hct 31.6 % (36.0-47.0) L 07/11/19 05:46 MCV 96.1 fL (80.0-100.0) 07/11/19 05:46 MCH 33.1 pg (27.0-34.0) 07/11/19 05:46 MCHC 34.5 g/dL (33.0-35.0) 07/11/19 05:46 RDW 14.1 % (11.6-16.5) 07/11/19 05:46 Plt Count 182 X10^3/uL (150.0-450.0) 07/11/19 05:46 Plt Count Comment Adequate (ADEQUATE) 07/11/19 05:46 MPV 8.5 fL (7.4-11.0) 07/11/19 05:46 Neut % (Auto) 90.3 % (42.0-75.0) H 07/11/19 05:46 Lymph % (Auto) 6.1 % (21.0-51.0) L 07/11/19 05:46 [place] % (Auto) 3.5 % (0.0-13.0) 07/11/19 05:46 Eos % (Auto) 0.0 % (0.9-2.9) L 07/11/19 05:46 Baso % (Auto) 0.1 % (0.2-1.0) L 07/11/19 05:46 Neut # (Auto) 15.0 x10^3/uL (2.2-4.8) H 07/11/19 05:46 Lymph # (Auto) 1.0 X10^3/uL (1.3-2.9) L 07/11/19 05:46 [place] # (Auto) 0.6 x10^3/uL (0.3-0.8) 07/11/19 05:46 Eos # (Auto) 0.0 x10^3/uL (0.0-0.2) 07/11/19 05:46 Baso # (Auto) 0.0 X10^3/uL (0.0-0.1) 07/11/19 05:46 Absolute Nucleated RBC 0.0 /100WBC 07/11/19 05:46 Total Counted 100 07/11/19 05:46 Neutrophils % (Manual) 95 % (39-76) H 07/11/19 05:46 Band Neutrophils % 1 % (0-10) 07/11/19 05:46 Lymphocytes % (Manual) 3 % (13-43) L 07/11/19 05:46 Monocytes % (Manual) 1 % (4-9) L 07/11/19 05:46 Eosinophils % (Manual) 2 % (0-6) 07/09/19 05:52 Plt Morphology Comment Normal (NORMAL) 07/11/19 05:46 RBC Morphology Normal (NORMAL) 07/11/19 05:46 Sodium 140 mmol/L (136-145) 07/11/19 05:46 Corrected Sodium 141 mmol/L (136-145) 07/11/19 05:46 Potassium 3.9 mmol/L (3.5-5.1) 07/11/19 05:46 Chloride 108 mmol/L (98-107) H 07/11/19 05:46 Carbon Dioxide 20.6 mmol/L (21-32) L 07/11/19 05:46 BUN 17 mg/dL (7-18) 07/11/19 05:46 Creatinine 1.04 mg/dL (0.55-1.02) H 07/11/19 05:46 Est GFR (MDRD) Af Amer > 60 (>60) 07/11/19 05:46 Est GFR (MDRD) Non-Af 54 (>60) L 07/11/19 05:46 Glucose 128 mg/dL (65-99) H 07/11/19 05:46 Calcium 8.4 mg/dL (8.5-10.1) L 07/11/19 05:46 Corrected Calcium 9.6 mg/dL (8.5-10.1) 07/11/19 05:46 Magnesium 2.3 mg/dL (1.7-2.9) 07/08/19 18:06 Total Bilirubin 0.20 mg/dL (0.2-1.0) 07/11/19 05:46 AST 41 Units/L (15-37) H 07/11/19 05:46 ALT 50 Units/L (12-78) 07/11/19 05:46 Alkaline Phosphatase 30 Units/L (46-116) L 07/11/19 05:46 Total Protein 5.3 g/dL (6.4-8.2) L 07/11/19 05:46 Albumin 2.5 g/dL (3.4-5.0) L 07/11/19 05:46 Globulin 2.8 g/dL (2.5-4.5) 07/11/19 05:46 Albumin/Globulin Ratio 0.9 Ratio (1.1-2.1) L 07/11/19 05:46 - Plan (1) Bronchopneumonia Status: Acute Plan: OBTAIN CHEST CT, IV LEVAQUIN, IV FORTAZ, SOLU-MEDROL, RESPIRATORY TX, AND SUPPLEMENTAL OXYGEN, CONTINUE TO MONITOR
--- NOTE | 2019-07-11 21:59 | CT ---
CT chest with contrast Indication: Cough, shortness of breath Comparison: 11/30/2016 Technique: CT images of the chest were obtained with IV contrast. Automatic exposure control was utilized. Findings: No acute osseous abnormality. The upper abdomen demonstrates moderate hiatal hernia of the stomach, similar to prior. Normal heart size, without significant pericardial thickening or pericardial effusion. Scattered coronary and thoracic aortic atherosclerotic calcifications are noted. The aorta is normal in caliber. No pathologically enlarged intrathoracic lymph nodes are identified. No central pulmonary arterial filling defect. There is mild subsegmental atelectasis versus scarring. The lungs are otherwise essentially clear. No pleural effusion or pneumothorax. The major airways are patent. Impression: No acute cardiopulmonary abnormality. Hiatal hernia. Reported By:
[2019-07-12 05:00] LABS: BASOPHILS % (AUTO) 0 % (0.2-1.0); HEMATOCRIT 32.1 % (36.0-47.0); HEMOGLOBIN 10.9 g/dL (12.0-16.0); LYMPHOCYTES # (AUTO) 1.3 X10^3/uL (1.3-2.9); LYMPHOCYTES % (AUTO) 8.2 % (21.0-51.0); MEAN CORPUSCULAR HEMOGLOBIN 33.2 pg (27.0-34.0); MEAN CORPUSCULAR VOLUME 97.6 fL (80.0-100.0); MEAN PLATELET VOLUME 8.9 fL (7.4-11.0); MONOCYTES # (AUTO) 0.9 x10^3/uL (0.3-0.8); NEUTROPHILS # (AUTO) 13.3 x10^3/uL (2.2-4.8); NEUTROPHILS % (AUTO) 85.8 % (42.0-75.0); PLATELET COUNT 166 X10^3/uL (150.0-450.0); RED BLOOD COUNT 3.29 X10^6/uL (3.5-5.4); WHITE BLOOD COUNT 15.5 X10^3/uL (3.6-10.0)
[2019-07-12 05:10] LABS: ALANINE AMINOTRANSFERASE 72 Units/L (12-78); ALBUMIN 2.6 g/dL (3.4-5.0); ALKALINE PHOSPHATASE 29 Units/L (46-116); ASPARTATE AMINO TRANSFERASE 45 Units/L (15-37); BLOOD UREA NITROGEN 20 mg/dL (7-18); CALCIUM 8.6 mg/dL (8.5-10.1); CARBON DIOXIDE 21.4 mmol/L (21-32); CHLORIDE 108 mmol/L (98-107); COR CA(FOR HYPOALB) 9.7 mg/dL (8.5-10.1); COR NA(FOR HYPERGLY) 141 mmol/L (136-145); CREATININE 1.08 mg/dL (0.55-1.02); SODIUM 140 mmol/L (136-145); TOTAL PROTEIN 5.2 g/dL (6.4-8.2); eGFR NON BLACK RACES 52 (>60)
[2019-07-12] MEDS: NS 1/2 1000 ML IV 1,000 ML IV SCH (05:29)
[2019-07-12 05:33] LABS: PLATELET MORPHOLOGY COMMENT NORMAL (NORMAL)
--- NOTE | 2019-07-12 05:47 | RAD ---
Examination: AP chest History: Cough SOB Comparison 07/11/2019 Findings: Heart size is normal and unchanged. There is no change in appearance of the lungs with slight chronic interstitial prominence and minimal fibrosis or atelectasis in the left lower lung. Metallic clothing artifacts are projected over the central mediastinum. There is no evidence for pleural fluid or pneumothorax. Impression: No change in appearance of the chest since 1 day prior. Reported By:
[2019-07-12] MEDS: PriLOSEC PO SCH (08:52)
[2019-07-12] MEDS: SYNTHROID 50 mcg TAB PO SCH (08:52)
[2019-07-12] MEDS: ASPIRIN EC 81 MG PO SCH (08:52)
[2019-07-12] MEDS: TOPROL XL PO SCH (08:53)
[2019-07-12] MEDS: ROBITUSSIN DM PO SCH ×2 (08:53→13:49)
[2019-07-12] MEDS: VSL#3 PO SCH (08:54)
[2019-07-12] MEDS: MIRAPEX TAB 0.25 MG PO SCH (08:55)
[2019-07-12] MEDS: PLAVIX PO SCH (08:57)
[2019-07-12] MEDS: LOVENOX INJ 40 MG SYR SC SCH (08:57)
[2019-07-12] MEDS: MICRO K EXTEN CAP 10 MEQ PO SCH (08:59)
[2019-07-12] MEDS: FORTAZ or TAZICEF VIAL INJ 1 G in NS 100 ML IV + SPIKE MINIBAG* 100 ML IV SCH (09:00)
[2019-07-12] MEDS: NYSTATIN SUSP PO SCH ×2 (09:00→13:49)
[2019-07-12] MEDS: DIFLUCAN 200 MG IV PREMIX* 200 MG/100 ML BAG IV SCH (09:01)
[2019-07-12] MEDS: DUONEB 0.5 MG/3 MG NEB SCH ×2 (09:10→12:13)
[2019-07-12] MEDS: PULMICORT NEB TX 0.5 MG NEB SCH (09:10)
[2019-07-12] MEDS ORDERED: LEVAQUIN PREMIX IV 750 MG 750 MG/150 ML BAG IV SCH (11:00)
[2019-07-12] MEDS ORDERED: FORTAZ or TAZICEF VIAL INJ 1 G in NS 100 ML IV + SPIKE MINIBAG* 100 ML IV SCH (14:00)
[2019-07-12 18:41] VITALS: BP 159/75
--- NOTE | 2019-08-24 11:33 | PCM.PROG ---
Progress Note - Progress Note for Day of Date of Exam: 07/11/19 - Subjective Subjective: WAS ADMITTED FOR TREATMENT OF BRONCHOPNEUMONIA. TODAY, SHE IS ALERT AND ORIENTED, LYING IN BED ON MORNING ROUNDS. SHE CONTINUES WITH SHORTNESS OF BREATH AND A PRODUCTIVE COUGH. ON EXAMINATION, HEART IS REGULAR IN RATE AND RHYTHM. BILATERAL LUNGS ARE NOTED WITH SCATTERED WHEEZING AND RHONCHI THROUGHOUT. ABDOMEN IS ROUND, SOFT, AND NON-TENDER WITH NORMAL BOWEL SOUNDS IN ALL QUADRANTS. HER VITALS THIS MORNING ARE: 98.5-89-22-94%-170/84. LABS WERE OBTAINED. ABNORMAL LAB VALUES INCLUDE THE FOLLOWING: WBC 16.6, RBC 3.29, HGB 10.9, HCT 31.6, CHLORIDE 108, CARBON DIOXIDE 20.6, CREATININE 1.04, GLUCOSE 128, CALCIUM 8.4, AST 41, ALK PHOS 30, TOTAL PROTEIN 5.3, ALBUMIN 2.5. BLOOD AND S PUTUM CULTURES ARE PENDING. A CHEST XRAY WAS OBTAINED THIS MORNING AND REVEALED: NO SIGNIFICANT CHANGE OR ACUTE ABNORMALITY DEMONSTRATED. SHE IS CURRENTLY RECEIVING IV LEVAQUIN, IV FORTAZ, SOLU-MEDROL, RESPIRATORY TX, AND SUPPLEMENTAL OXYGEN. WE WILL CONTINUE WITH CURRENT PLAN OF CARE TODAY. SHE IS SCHEDULE FOR A CHEST CT THIS AFTERNOON. OTHERWISE, WE WILL FOLLOW UP WITH AM LABS AND CHEST XRAY AND CONTINUE TO MONITOR. - Past Medical Family Social History Past Med/Fam/Surg Hx: No changes since H&P Allergies: Allergies No Known Drug Allergies Allergy (Verified 06/26/19 08:18) - Review of Systems ROS: No change since H&P - Vital Signs and I&O's Vital Signs: Temperature 98.4 F Pulse Rate [Right Brachial] 78 Pulse Rate 74 Respiratory Rate 20 Blood Pressure [Left Arm] 137/67 Blood Pressure [Right Arm] 159/75 Blood Pressure 111/64 O2 Sat by Pulse Oximetry 96 - Physical Exam Oriented: Normal Eyes: Normal Ear: Normal Nose: Normal Throat: Normal Respiratory: Normal, Wheezes, Rhonchi Cardiovascular: Normal : Normal Auscultation: Bowel Sounds: Normal Tenderness: Normal Skin: Normal Musculoskeletal: Normal Psychiatric: Normal Mood Description: Calm Affect: Normal Speech Pattern: Clear, Appropriate - Laboratory and Diagnostics Result Diagrams: 07/12/19 04:22 07/12/19 04:22 Labs: 07/08/19 18:45 Blood Blood Culture - Final 07/08/19 18:06 Blood Blood Culture - Final 07/08/19 17:13 Sputum - Expectorated Sputum Sputum Culture - Final 07/08/19 17:13 Sputum - Expectorated Sputum - Final Laboratory WBC 15.5 X10^3/uL (3.6-10.0) H 07/12/19 04:22 RBC 3.29 X10^6/uL (3.5-5.4) L 07/12/19 04:22 Hgb 10.9 g/dL (12.0-16.0) L 07/12/19 04:22 Hct 32.1 % (36.0-47.0) L 07/12/19 04:22 MCV 97.6 fL (80.0-100.0) 07/12/19 04:22 MCH 33.2 pg (27.0-34.0) 07/12/19 04:22 MCHC 34.0 g/dL (33.0-35.0) 07/12/19 04:22 RDW 14.0 % (11.6-16.5) 07/12/19 04:22 Plt Count 166 X10^3/uL (150.0-450.0) 07/12/19 04:22 Plt Count Comment Adequate (ADEQUATE) 07/12/19 04:22 MPV 8.9 fL (7.4-11.0) 07/12/19 04:22 Neut % (Auto) 85.8 % (42.0-75.0) H 07/12/19 04:22 Lymph % (Auto) 8.2 % (21.0-51.0) L 07/12/19 04:22 [place] % (Auto) 6.0 % (0.0-13.0) 07/12/19 04:22 Eos % (Auto) 0.0 % (0.9-2.9) L 07/12/19 04:22 Baso % (Auto) 0 % (0.2-1.0) L 07/12/19 04:22 Neut # (Auto) 13.3 x10^3/uL (2.2-4.8) H 07/12/19 04:22 Lymph # (Auto) 1.3 X10^3/uL (1.3-2.9) 07/12/19 04:22 [place] # (Auto) 0.9 x10^3/uL (0.3-0.8) H 07/12/19 04:22 Eos # (Auto) 0.0 x10^3/uL (0.0-0.2) 07/12/19 04:22 Baso # (Auto) 0.0 X10^3/uL (0.0-0.1) 07/12/19 04:22 Absolute Nucleated RBC 0.0 /100WBC 07/12/19 04:22 Total Counted 100 07/12/19 04:22 Neutrophils % (Manual) 71 % (39-76) 07/12/19 04:22 Band Neutrophils % 1 % (0-10) 07/11/19 05:46 Lymphocytes % (Manual) 27 % (13-43) 07/12/19 04:22 Monocytes % (Manual) 2 % (4-9) L 07/12/19 04:22 Eosinophils % (Manual) 2 % (0-6) 07/09/19 05:52 Plt Morphology Comment Normal (NORMAL) 07/12/19 04:22 RBC Morphology Normal (NORMAL) 07/12/19 04:22 Sodium 140 mmol/L (136-145) 07/12/19 04:22 Corrected Sodium 141 mmol/L (136-145) 07/12/19 04:22 Potassium 3.9 mmol/L (3.5-5.1) 07/12/19 04:22 Chloride 108 mmol/L (98-107) H 07/12/19 04:22 Carbon Dioxide 21.4 mmol/L (21-32) 07/12/19 04:22 BUN 20 mg/dL (7-18) H 07/12/19 04:22 Creatinine 1.08 mg/dL (0.55-1.02) H 07/12/19 04:22 Est GFR (MDRD) Af Amer > 60 (>60) 07/12/19 04:22 Est GFR (MDRD) Non-Af 52 (>60) L 07/12/19 04:22 Glucose 133 mg/dL (65-99) H 07/12/19 04:22 Calcium 8.6 mg/dL (8.5-10.1) 07/12/19 04:22 Corrected Calcium 9.7 mg/dL (8.5-10.1) 07/12/19 04:22 Magnesium 2.3 mg/dL (1.7-2.9) 07/08/19 18:06 Total Bilirubin 0.20 mg/dL (0.2-1.0) 07/12/19 04:22 AST 45 Units/L (15-37) H 07/12/19 04:22 ALT 72 Units/L (12-78) 07/12/19 04:22 Alkaline Phosphatase 29 Units/L (46-116) L 07/12/19 04:22 Total Protein 5.2 g/dL (6.4-8.2) L 07/12/19 04:22 Albumin 2.6 g/dL (3.4-5.0) L 07/12/19 04:22 Globulin 2.6 g/dL (2.5-4.5) 07/12/19 04:22 Albumin/Globulin Ratio 1.0 Ratio (1.1-2.1) L 07/12/19 04:22 - Plan (1) Bronchopneumonia Status: Acute Plan: OBTAIN CHEST CT, IV LEVAQUIN, IV FORTAZ, SOLU-MEDROL, RESPIRATORY TX, AND SUPPLEMENTAL OXYGEN, CONTINUE TO MONITOR
== END 2019-07-12 16:45 | disposition home or self-care (01) | DRG 194 ==
LOC: MED/SURG 15:36
PROVIDERS: ADMIT Internal Medicine; ATTEND Internal Medicine
DX: J18.0 Bronchopneumonia, unspecified organism; B37.0 Candidal stomatitis; G25.81 Restless legs syndrome; F41.1 Generalized anxiety disorder; R06.02 Shortness of breath; K21.9 Gastro-esophageal reflux disease without esophagitis; I10 Essential (primary) hypertension; E03.8 Other specified hypothyroidism
CPT/HCPCS: 36415; 71010; 71045; 71260; 80053; 83735; 84132; 85025; 87040; 87070; 87205; 94640; 94669; 94760; A4222; J0713; J1450; J1650; J1956; J2920; J3490; J7030; J7050; J7620; J7626

== ENCOUNTER 2021-01-27 14:53 | Inpatient (IN) ==
[2021-01-27 17:27] VITALS: BMI 28.0
[2021-01-27 18:33] LABS: BASOPHILS % (AUTO) 0.6 % (0.2-1.0); EOSINOPHILS # (AUTO) 0.6 x10^3/uL (0.0-0.2); EOSINOPHILS % (AUTO) 7.9 % (0.9-2.9); HEMATOCRIT 34.8 % (36.0-47.0); HEMOGLOBIN 11.8 g/dL (12.0-16.0); LYMPHOCYTES # (AUTO) 1.6 X10^3/uL (1.3-2.9); MEAN CORPUSCULAR HEMOGLOBIN 32.4 pg (27.0-34.0); MEAN CORPUSCULAR VOLUME 95.4 fL (80.0-100.0); MEAN PLATELET VOLUME 9.3 fL (7.4-11.0); MONOCYTES # (AUTO) 0.8 x10^3/uL (0.3-0.8); MONOCYTES % (AUTO) 11.4 % (0.0-13.0); NEUTROPHILS # (AUTO) 4.1 x10^3/uL (2.2-4.8); NEUTROPHILS % (AUTO) 57.1 % (42.0-75.0); PLATELET COUNT 180 X10^3/uL (150.0-450.0); RED BLOOD COUNT 3.65 X10^6/uL (3.5-5.4); RED CELL DISTRIBUTION WIDTH 13.5 % (11.6-16.5); WHITE BLOOD COUNT 7.1 X10^3/uL (3.6-10.0)
[2021-01-27 18:45] LABS: ALANINE AMINOTRANSFERASE 22 Units/L (12-78); ALBUMIN 3.5 g/dL (3.4-5.0); ALKALINE PHOSPHATASE 47 Units/L (46-116); ASPARTATE AMINO TRANSFERASE 21 Units/L (15-37); BLOOD UREA NITROGEN 12 mg/dL (7-18); CALCIUM 8.9 mg/dL (8.5-10.1); CARBON DIOXIDE 30.7 mmol/L (21-32); CHLORIDE 105 mmol/L (98-107); CREATININE 1.34 mg/dL (0.55-1.02); SODIUM 140 mmol/L (136-145); TOTAL PROTEIN 6.2 g/dL (6.4-8.2); eGFR NON BLACK RACES 40 (>60)
[2021-01-27] MEDS ORDERED: NS 1/2 1000 ML IV 1,000 ML IV ONE (19:42)
[2021-01-27] MEDS: FORTAZ or TAZICEF VIAL INJ 1 G in NS 100 ML IV + SPIKE MINIBAG* 100 ML IV SCH (19:47)
[2021-01-27] MEDS: NS 1/2 1000 ML IV 1,000 ML IV SCH (19:47)
[2021-01-27] MEDS: ROBITUSSIN DM PO SCH ×2 (19:47→21:14)
[2021-01-27] MEDS: VSL#3 PO SCH (19:47)
[2021-01-27] MEDS: LEVAQUIN PREMIX IV 750 MG 750 MG/150 ML BAG IV SCH (19:48)
--- NOTE | 2021-01-27 20:37 | RAD ---
CHEST, 1 VIEWHISTORY: COUGHStudy: AP view of the chest.Comparison:NoneFindings:The cardiomediastinal silhouette is normal. No focal consolidations, pleural effusions or pneumothorax. Osseous structures demonstrate no acute abnormality. Bilateral hyperexpansion and interstitial prominence.IMPRESSION:1. No acute cardiopulmonary process.2. Findings of COPD.Electronically signed by: SONYA MCCALL (January 27, 2021 20:35:28)
[2021-01-27] MEDS ORDERED: SALINE 3% 15 ML NEB TX ONE (20:49)
[2021-01-27] MEDS: DUONEB 0.5 MG/3 MG (3 mL) NEB SCH (21:09)
[2021-01-27] MEDS: PULMICORT NEB TX 0.5 MG NEB SCH (21:09)
[2021-01-27] MEDS ORDERED: SALINE 3% 15 ML NEB TX NEB ONE (21:09)
[2021-01-28 04:54] LABS: BASOPHILS % (AUTO) 0.7 % (0.2-1.0); EOSINOPHILS # (AUTO) 0.6 x10^3/uL (0.0-0.2); EOSINOPHILS % (AUTO) 10.6 % (0.9-2.9); HEMATOCRIT 34.5 % (36.0-47.0); HEMOGLOBIN 11.6 g/dL (12.0-16.0); LYMPHOCYTES # (AUTO) 1.5 X10^3/uL (1.3-2.9); LYMPHOCYTES % (AUTO) 24.7 % (21.0-51.0); MEAN CORPUSCULAR HEMOGLOBIN 32.1 pg (27.0-34.0); MEAN CORPUSCULAR HGB CONC 33.6 g/dL (33.0-35.0); MEAN CORPUSCULAR VOLUME 95.4 fL (80.0-100.0); MEAN PLATELET VOLUME 9.2 fL (7.4-11.0); MONOCYTES # (AUTO) 0.7 x10^3/uL (0.3-0.8); MONOCYTES % (AUTO) 11.6 % (0.0-13.0); NEUTROPHILS # (AUTO) 3.2 x10^3/uL (2.2-4.8); NEUTROPHILS % (AUTO) 52.4 % (42.0-75.0); PLATELET COUNT 180 X10^3/uL (150.0-450.0); RED BLOOD COUNT 3.62 X10^6/uL (3.5-5.4); RED CELL DISTRIBUTION WIDTH 13.4 % (11.6-16.5); WHITE BLOOD COUNT 6.1 X10^3/uL (3.6-10.0)
[2021-01-28 05:06] LABS: ALANINE AMINOTRANSFERASE 19 Units/L (12-78); ALBUMIN 3.1 g/dL (3.4-5.0); ALKALINE PHOSPHATASE 42 Units/L (46-116); ASPARTATE AMINO TRANSFERASE 22 Units/L (15-37); BLOOD UREA NITROGEN 11 mg/dL (7-18); CALCIUM 8.7 mg/dL (8.5-10.1); CARBON DIOXIDE 28.4 mmol/L (21-32); CHLORIDE 106 mmol/L (98-107); COR CA(FOR HYPOALB) 9.4 mg/dL (8.5-10.1); CREATININE 1.16 mg/dL (0.55-1.02); SODIUM 141 mmol/L (136-145); TOTAL PROTEIN 5.9 g/dL (6.4-8.2); eGFR NON BLACK RACES 48 (>60)
--- NOTE | 2021-01-28 06:06 | RAD ---
HISTORYSOBSTUDYCHEST, 1 [id number]/06/2021.TECHNIQUEAP view of the chestFINDINGSCardiac and mediastinal contours are within normal limits. Lungs are mildly hyperexpanded with scattered mild interstitial opacities. No consolidation. No definite pleural effusion or pneumothorax. Left humeral ORIF partially visualized.IMPRESSIONNo significant change. No acute process.Electronically signed by: Jose Jensen (January 28, 2021 06:04:08)
[2021-01-28] MEDS: PULMICORT NEB TX 0.5 MG NEB SCH ×2 (09:05→21:10)
[2021-01-28] MEDS: DUONEB 0.5 MG/3 MG (3 mL) NEB SCH ×4 (09:05→21:10)
[2021-01-28] MEDS: VSL#3 PO SCH (09:53)
[2021-01-28] MEDS: FORTAZ or TAZICEF VIAL INJ 1 G in NS 100 ML IV + SPIKE MINIBAG* 100 ML IV SCH ×2 (09:53→20:10)
[2021-01-28] MEDS: SOLU-Medrol 40 MG VIAL IVP SCH ×3 (09:53→21:05)
[2021-01-28] MEDS: PROTONIX INJ 40 MG VIAL IVP SCH ×2 (09:53→20:10)
[2021-01-28] MEDS: ROBITUSSIN DM PO SCH ×4 (09:54→20:10)
[2021-01-28] MEDS: LOVENOX INJ 40 MG SYR SC SCH (09:54)
[2021-01-28] MEDS: PEPCID 20 MG IV PREMIX* 20 MG/50 ML BAG IV SCH ×2 (10:00→20:10)
--- NOTE | 2021-01-28 11:10 | DR.UPDATE ---
H&P Update History and Physical Update: History and Physical reviewed and patient examined. Changes noted: Yes with the following: TIME SPENT ON CLINICAL ASSESSMENT, REVIEWING LABS AND IMAGING, DECISION MAKING, AND DOCUMENTATION GREATER THAN 45 MINUTES. RETURNED TO THE OFFICE TODAY FOR COMPLAINTS OF PERSISTENT COUGH AND SHORTNESS OF BREATH. SHE HAS TAKEN CIPRO 500MG PO BID X 10 DAYS, A MEDROL DOSE PACK, AND ALBUTEROL NEB TREATMENTS. SHE HAS ALSO BEEN UTILIZING THE SMARTVEST. SHE DENIES IMPROVEMENT IN SYMPTOMS. SHE WAS ADMITTED FOR FURTHER EVALUATION AND TREATMENT OF BRONCHOPNEUMONIA. ON ADMISSION, VITALS WERE 98.3-75-20-92%-111/64. LABS WERE OBTAINED. ABNORMAL LAB VALUES INCLUDED THE FOLLOWING: HGB 11.8, HCT 34.8, CREATININE 1.34, TOTAL PROTEIN 6.2. BLOOD AND SPUTUM CULTURES WERE SET UP. A CHEST XRAY WAS OBTAINED AND REVEALED: The cardiomediastinal silhouette is normal. No focal consolidations, pleural effusions or pneumothorax. Osseous structures demonstrate no acute abnormality. Bilateral hyperexpansion and interstitial prominence. SHE WAS STARTED ON IV LEVAQUIN, IV FORTAZ, RESPIRATORY TREATMENTS, SOLU-MEDROL 40MG IV Q8H, PEPCID IV, PROTONIX IV, AND SUPPLEMENTAL OXYGEN. WE WILL REVIEW HER HOME MEDICATIONS. OTHERWISE, WE PLAN TO FOLLOW UP WITH AM LABS, CHEST XRAY, AND CONTINUE TO MONITOR. TIME SPENT ON CLINICAL ASSESSMENT, REVIEWING LABS AND IMAGING, DECISION MAKING, AND DOCUMENTATION GREATER THAN 75 MINUTES. Prescription drug monitoring program results: PDMP was not reviewed H&P Reviewed: Yes Patient was examined?: Yes
[2021-01-28] MEDS ORDERED: SALINE 0.9% 3 ML NEB TX ONE ×2 (12:14→16:43)
[2021-01-28] MEDS ORDERED: NS 1/2 1000 ML IV 1,000 ML IV ONE (15:13)
[2021-01-28] MEDS: NS 1/2 1000 ML IV 1,000 ML IV SCH ×2 (15:24→23:17)
[2021-01-28] MEDS: TUSSIONEX PENNKINETIC SUSP PO PRN (15:41)
[2021-01-28] MEDS ORDERED: MILK OF MAGNESIA PO PRN (18:19)
[2021-01-28] MEDS ORDERED: COLACE CAP 100 MG PO PRN (18:19)
[2021-01-28] MEDS ORDERED: SALINE 3% 15 ML NEB TX ONE (20:29)
[2021-01-29] MEDS: TUSSIONEX PENNKINETIC SUSP PO PRN ×2 (02:48→23:09)
[2021-01-29] MEDS: SOLU-Medrol 40 MG VIAL IVP SCH ×3 (05:14→21:05)
[2021-01-29 05:22] LABS: BASOPHILS % (AUTO) 0.2 % (0.2-1.0); HEMATOCRIT 33.5 % (36.0-47.0); HEMOGLOBIN 11.2 g/dL (12.0-16.0); LYMPHOCYTES # (AUTO) 0.8 X10^3/uL (1.3-2.9); LYMPHOCYTES % (AUTO) 13.8 % (21.0-51.0); MEAN CORPUSCULAR HEMOGLOBIN 32.1 pg (27.0-34.0); MEAN CORPUSCULAR HGB CONC 33.6 g/dL (33.0-35.0); MEAN CORPUSCULAR VOLUME 95.4 fL (80.0-100.0); MEAN PLATELET VOLUME 9.7 fL (7.4-11.0); MONOCYTES # (AUTO) 0.2 x10^3/uL (0.3-0.8); MONOCYTES % (AUTO) 2.6 % (0.0-13.0); NEUTROPHILS # (AUTO) 4.9 x10^3/uL (2.2-4.8); NEUTROPHILS % (AUTO) 83.4 % (42.0-75.0); PLATELET COUNT 178 X10^3/uL (150.0-450.0); RED BLOOD COUNT 3.51 X10^6/uL (3.5-5.4); RED CELL DISTRIBUTION WIDTH 13.4 % (11.6-16.5); WHITE BLOOD COUNT 5.9 X10^3/uL (3.6-10.0)
[2021-01-29 05:32] LABS: CALCIUM 8.9 mg/dL (8.5-10.1); COR CA(FOR HYPOALB) 9.7 mg/dL (8.5-10.1); CREATININE 1.23 mg/dL (0.55-1.02); TOTAL PROTEIN 5.9 g/dL (6.4-8.2)
[2021-01-29] MEDS: PULMICORT NEB TX 0.5 MG NEB SCH ×2 (08:17→20:30)
[2021-01-29] MEDS: DUONEB 0.5 MG/3 MG (3 mL) NEB SCH ×5 (08:17→20:30)
[2021-01-29] MEDS: PEPCID 20 MG IV PREMIX* 20 MG/50 ML BAG IV SCH ×2 (09:40→20:50)
[2021-01-29] MEDS: FORTAZ or TAZICEF VIAL INJ 1 G in NS 100 ML IV + SPIKE MINIBAG* 100 ML IV SCH ×2 (09:40→23:01)
[2021-01-29] MEDS: LOVENOX INJ 40 MG SYR SC SCH (09:41)
[2021-01-29] MEDS: ROBITUSSIN DM PO SCH ×4 (09:42→21:05)
[2021-01-29] MEDS: PROTONIX INJ 40 MG VIAL IVP SCH ×2 (09:42→21:08)
[2021-01-29] MEDS: VSL#3 PO SCH (09:42)
[2021-01-29] MEDS ORDERED: NS 1/2 1000 ML IV 1,000 ML IV ONE (10:57)
[2021-01-29] MEDS: NS 1/2 1000 ML IV 1,000 ML IV SCH (11:09)
[2021-01-29] MEDS: BENADRYL INJ 50 MG VIAL IVP ONE (17:26)
[2021-01-29] MEDS ORDERED: SALINE 0.9% 3 ML NEB TX ONE (20:09)
[2021-01-29] MEDS: LEVAQUIN PREMIX IV 750 MG 750 MG/150 ML BAG IV SCH (21:05)
[2021-01-29] MEDS: MIRAPEX TAB 0.25 MG PO SCH (21:05)
[2021-01-29] MEDS: RESTORIL CAP 30 MG PO PRN (21:05)
[2021-01-30] MEDS: NS 1/2 1000 ML IV 1,000 ML IV SCH ×3 (03:01→16:16)
[2021-01-30] MEDS ORDERED: NS 1/2 1000 ML IV 1,000 ML IV ONE ×2 (04:40→15:29)
[2021-01-30 04:52] LABS: BASOPHILS % (AUTO) 0.1 % (0.2-1.0); HEMATOCRIT 31.2 % (36.0-47.0); HEMOGLOBIN 10.6 g/dL (12.0-16.0); LYMPHOCYTES # (AUTO) 0.7 X10^3/uL (1.3-2.9); LYMPHOCYTES % (AUTO) 6.8 % (21.0-51.0); MEAN CORPUSCULAR HEMOGLOBIN 32.2 pg (27.0-34.0); MEAN CORPUSCULAR HGB CONC 33.8 g/dL (33.0-35.0); MEAN CORPUSCULAR VOLUME 95.4 fL (80.0-100.0); MEAN PLATELET VOLUME 9.8 fL (7.4-11.0); MONOCYTES # (AUTO) 0.5 x10^3/uL (0.3-0.8); MONOCYTES % (AUTO) 4.4 % (0.0-13.0); NEUTROPHILS # (AUTO) 9.4 x10^3/uL (2.2-4.8); NEUTROPHILS % (AUTO) 88.7 % (42.0-75.0); PLATELET COUNT 180 X10^3/uL (150.0-450.0); RED BLOOD COUNT 3.28 X10^6/uL (3.5-5.4); RED CELL DISTRIBUTION WIDTH 13.3 % (11.6-16.5); WHITE BLOOD COUNT 10.6 X10^3/uL (3.6-10.0)
[2021-01-30 05:15] LABS: CALCIUM 8.6 mg/dL (8.5-10.1); CARBON DIOXIDE 21.5 mmol/L (21-32); COR CA(FOR HYPOALB) 9.4 mg/dL (8.5-10.1); CREATININE 1.16 mg/dL (0.55-1.02); TOTAL PROTEIN 5.8 g/dL (6.4-8.2)
--- NOTE | 2021-01-30 05:59 | RAD ---
HISTORYPneumoniaSTUDYPortable AP [id number]/07/2021FINDINGSHeart size and contour remain normal. The lungs are symmetrically inflated with only slight bilateral interstitial prominence. There is no evidence for segmental or lobar consolidation, pulmonary edema or pneumothorax. The pleural spaces are well defined.IMPRESSIONNo change. Slight nonspecific interstitial prominence without evidence for localized pneumonia or michelle pulmonary edema.Electronically signed by: KAMARI FONTENOT (January 30, 2021 05:57:21)
[2021-01-30] MEDS: SOLU-Medrol 40 MG VIAL IVP SCH ×3 (06:32→21:01)
[2021-01-30] MEDS: PROTONIX INJ 40 MG VIAL IVP SCH ×2 (08:50→21:01)
[2021-01-30] MEDS: VSL#3 PO SCH (08:50)
[2021-01-30] MEDS: MIRAPEX TAB 0.25 MG PO SCH ×2 (08:51→20:59)
[2021-01-30] MEDS: ROBITUSSIN DM PO SCH ×4 (08:51→20:59)
[2021-01-30] MEDS: FORTAZ or TAZICEF VIAL INJ 1 G in NS 100 ML IV + SPIKE MINIBAG* 100 ML IV SCH ×2 (08:51→21:00)
[2021-01-30] MEDS: LOVENOX INJ 40 MG SYR SC SCH (08:51)
[2021-01-30] MEDS: PEPCID 20 MG IV PREMIX* 20 MG/50 ML BAG IV SCH ×2 (08:51→21:01)
[2021-01-30] MEDS: PULMICORT NEB TX 0.5 MG NEB SCH ×2 (09:03→20:05)
[2021-01-30] MEDS: DUONEB 0.5 MG/3 MG (3 mL) NEB SCH ×4 (09:03→20:05)
[2021-01-30] MEDS ORDERED: SALINE 0.9% 3 ML NEB TX ONE (09:05)
[2021-01-30] MEDS: SALINE 0.9% 3 ML NEB TX NEB SCH ×4 (09:06→20:05)
[2021-01-30] MEDS ORDERED: BENADRYL INJ 50 MG VIAL IVP ONE (10:21)
[2021-01-30] MEDS ORDERED: BENADRYL INJ 50 MG VIAL ONE (10:26)
[2021-01-30] MEDS: BENADRYL INJ 50 MG VIAL IVP ONE (10:37)
[2021-01-30] MEDS: TUSSIONEX PENNKINETIC SUSP PO PRN (14:33)
[2021-01-30] MEDS ORDERED: MAALOX or MYLANTA PO PRN (14:33)
[2021-01-31 05:31] LABS: BASOPHILS % (AUTO) 0.1 % (0.2-1.0); HEMATOCRIT 31.1 % (36.0-47.0); HEMOGLOBIN 10.4 g/dL (12.0-16.0); LYMPHOCYTES # (AUTO) 0.8 X10^3/uL (1.3-2.9); LYMPHOCYTES % (AUTO) 8.3 % (21.0-51.0); MEAN CORPUSCULAR HGB CONC 33.5 g/dL (33.0-35.0); MEAN CORPUSCULAR VOLUME 95.5 fL (80.0-100.0); MEAN PLATELET VOLUME 9.5 fL (7.4-11.0); MONOCYTES # (AUTO) 0.5 x10^3/uL (0.3-0.8); MONOCYTES % (AUTO) 5.8 % (0.0-13.0); NEUTROPHILS # (AUTO) 8.1 x10^3/uL (2.2-4.8); NEUTROPHILS % (AUTO) 85.8 % (42.0-75.0); PLATELET COUNT 174 X10^3/uL (150.0-450.0); RED BLOOD COUNT 3.25 X10^6/uL (3.5-5.4); RED CELL DISTRIBUTION WIDTH 13.5 % (11.6-16.5); WHITE BLOOD COUNT 9.4 X10^3/uL (3.6-10.0)
[2021-01-31 05:50] LABS: ALANINE AMINOTRANSFERASE 22 Units/L (12-78); ALBUMIN 3.1 g/dL (3.4-5.0); ALKALINE PHOSPHATASE 35 Units/L (46-116); ASPARTATE AMINO TRANSFERASE 24 Units/L (15-37); BLOOD UREA NITROGEN 13 mg/dL (7-18); CALCIUM 8.5 mg/dL (8.5-10.1); CARBON DIOXIDE 23.8 mmol/L (21-32); CHLORIDE 107 mmol/L (98-107); COR CA(FOR HYPOALB) 9.2 mg/dL (8.5-10.1); COR NA(FOR HYPERGLY) 141 mmol/L (136-145); CREATININE 1.11 mg/dL (0.55-1.02); SODIUM 140 mmol/L (136-145); TOTAL PROTEIN 5.8 g/dL (6.4-8.2); eGFR NON BLACK RACES 50 (>60)
[2021-01-31] MEDS: NS 1/2 1000 ML IV 1,000 ML IV SCH ×2 (06:11→21:19)
[2021-01-31] MEDS: SOLU-Medrol 40 MG VIAL IVP SCH ×3 (06:11→21:25)
[2021-01-31] MEDS: TUSSIONEX PENNKINETIC SUSP PO PRN (06:11)
[2021-01-31] MEDS ORDERED: NS 1/2 1000 ML IV 1,000 ML IV ONE (06:14)
--- NOTE | 2021-01-31 07:34 | RAD ---
HISTORYPENUMONIASTUDYCHEST, 1 [id number]/09/2021.TECHNIQUEAP view of the chestFINDINGSCardiac and mediastinal contours are within normal limits. Similar appearance of mild scattered interstitial opacities. No definite pleural effusion or pneumothorax.IMPRESSIONNo significant change.Electronically signed by: Jose Jensen (January 31, 2021 07:32:13)
[2021-01-31] MEDS ORDERED: DIFLUCAN 200 MG IV PREMIX* 200 MG/100 ML BAG IV SCH (09:00)
[2021-01-31] MEDS ORDERED: DIFLUCAN 100 MG IV (MIX by PHARMACY)* 100 MG/50 ML BAG IV SCH (09:00)
[2021-01-31] MEDS: DUONEB 0.5 MG/3 MG (3 mL) NEB SCH ×4 (09:03→21:40)
[2021-01-31] MEDS: SALINE 0.9% 3 ML NEB TX NEB SCH ×4 (09:03→21:40)
[2021-01-31] MEDS: PULMICORT NEB TX 0.5 MG NEB SCH ×2 (09:03→21:40)
[2021-01-31] MEDS: FORTAZ or TAZICEF VIAL INJ 1 G in NS 100 ML IV + SPIKE MINIBAG* 100 ML IV SCH ×2 (09:46→21:24)
[2021-01-31] MEDS: PROTONIX INJ 40 MG VIAL IVP SCH ×2 (09:46→21:25)
[2021-01-31] MEDS: MIRAPEX TAB 0.25 MG PO SCH ×3 (09:47→21:26)
[2021-01-31] MEDS: VSL#3 PO SCH (09:47)
[2021-01-31] MEDS: PEPCID 20 MG IV PREMIX* 20 MG/50 ML BAG IV SCH ×2 (09:47→21:26)
[2021-01-31] MEDS: LOVENOX INJ 40 MG SYR SC SCH (09:48)
[2021-01-31] MEDS: ROBITUSSIN DM PO SCH ×4 (10:48→21:25)
--- NOTE | 2021-01-31 10:54 | PCM.PROG ---
Progress Note - Progress Note for Day of Date of Exam: 01/31/21 - Subjective Subjective: WAS ADMITTED FOR TREATMENT OF BRONCHOPNEUMONIA, FAILED OUTPATIENT TREATMENT. TODAY, SHE IS ALERT AND ORIENTED, LYING IN BED ON MORNING ROUNDS. SHE CONTINUES WITH SHORTNESS OF BREATH AND A PRODUCTIVE COUGH. ON EXAMINATION, HEART IS REGULAR IN RATE AND RHYTHM. BILATERAL LUNGS ARE NOTED WITH SCATTERED WHEEZING AND RHONCHI THROUGHOUT. ABDOMEN IS ROUND, SOFT, AND NON- TENDER WITH NORMAL BOWEL SOUNDS IN ALL QUADRANTS. HER VITALS THIS MORNING ARE: 98.0-84-20-95% NC-144/62. LABS WERE OBTAINED. ABNORMAL LAB VALUES INCLUDE THE FOLLOWING: RBC 3.25, HGB 10.4, HCT 31.1, CREATININE 1.11, GLUCOSE 161, ALK PHOS 35, TOTAL PROTEIN 5.8, ALBUMIN 3.1. SPUTUM CULTURE REVEALS MODERATE GROWTH OF YEAST AND GRAM NEGATIVE COCCI. BLOOD CULTURES ARE PENDING. SHE IS CURRENTLY RECEIVING IV LEVAQUIN, IV FORTAZ, SOLU-MEDROL, RESPIRATORY TX, AND SUPPLEMENTAL OXYGEN. HER HOME MEDICATIONS WERE RESUMED. WE WILL CONTINUE WITH CURRENT PLAN OF CARE TODAY AND ADD DIFLUCAN 200MG IV DAILY. OTHERWISE, WE PLAN TO FOLLOW UP WITH AM LABS AND CHEST XRAY AND CONTINUE TO MONITOR. TIME SPENT ON CLINICAL ASSESSMENT, REVIEWING LABS AND IMAGING, DECISION MAKING, AND DOCUMENTATION GREATER THAN 45 MINUTES. - Past Medical Family Social History Past Med/Fam/Surg Hx: No changes since H&P Allergies: Allergies No Known Drug Allergies Allergy (Verified 06/26/19 08:18) - Review of Systems ROS: No change since H&P - Vital Signs and I&O's Vital Signs: Temperature 98.0 F Pulse Rate [Right Radial] 84 Pulse Rate 82 Respiratory Rate 20 Blood Pressure [Left Arm] 144/62 Blood Pressure [Right Arm] 159/75 Blood Pressure 111/64 O2 Sat by Pulse Oximetry 98 Intake and Output: Intake & Output 01/28/21 01/29/21 01/30/21 01/31/21 11:59 11:59 11:59 11:59 Intake Total 1498 / 1498 3285 / 3285 3510 / 3510 3118 / 3118 Balance 1498 / 1498 3285 / 3285 3510 / 3510 3118 / 3118 - Physical Exam Oriented: Normal Eyes: Normal Ear: Normal Nose: Normal Throat: Normal Respiratory: Generalized, Diminished, Wheezes, Rhonchi Cardiovascular: Normal : Normal Auscultation: Bowel Sounds: Normal Palpation: Normal Tenderness: Normal Skin: Normal Musculoskeletal: Normal Psychiatric: Normal Mood Description: Calm Affect: Normal Speech Pattern: Clear, Appropriate - Laboratory and Diagnostics Result Diagrams: 01/31/21 05:08 01/31/21 05:08 Labs: 01/27/21 21:27 Sputum - Expectorated Sputum Sputum Culture - Final 01/27/21 21:27 Sputum - Expectorated Sputum - Final 01/27/21 18:09 Blood Blood Culture - Preliminary 01/27/21 17:59 Blood Blood Culture - Preliminary Laboratory WBC 9.4 X10^3/uL (3.6-10.0) 01/31/21 05:08 RBC 3.25 X10^6/uL (3.5-5.4) L 01/31/21 05:08 Hgb 10.4 g/dL (12.0-16.0) L 01/31/21 05:08 Hct 31.1 % (36.0-47.0) L 01/31/21 05:08 MCV 95.5 fL (80.0-100.0) 01/31/21 05:08 MCH 32.0 pg (27.0-34.0) 01/31/21 05:08 MCHC 33.5 g/dL (33.0-35.0) 01/31/21 05:08 RDW 13.5 % (11.6-16.5) 01/31/21 05:08 Plt Count 174 X10^3/uL (150.0-450.0) 01/31/21 05:08 MPV 9.5 fL (7.4-11.0) 01/31/21 05:08 Neut % (Auto) 85.8 % (42.0-75.0) H 01/31/21 05:08 Lymph % (Auto) 8.3 % (21.0-51.0) L 01/31/21 05:08 [place] % (Auto) 5.8 % (0.0-13.0) 01/31/21 05:08 Eos % (Auto) 0.0 % (0.9-2.9) L 01/31/21 05:08 Baso % (Auto) 0.1 % (0.2-1.0) L 01/31/21 05:08 Neut # (Auto) 8.1 x10^3/uL (2.2-4.8) H 01/31/21 05:08 Lymph # (Auto) 0.8 X10^3/uL (1.3-2.9) L 01/31/21 05:08 [place] # (Auto) 0.5 x10^3/uL (0.3-0.8) 01/31/21 05:08 Eos # (Auto) 0.0 x10^3/uL (0.0-0.2) 01/31/21 05:08 Baso # (Auto) 0.0 X10^3/uL (0.0-0.1) 01/31/21 05:08 Absolute Nucleated RBC 0.1 /100WBC 01/31/21 05:08 Sodium 140 mmol/L (136-145) 01/31/21 05:08 Corrected Sodium 141 mmol/L (136-145) 01/31/21 05:08 Potassium 3.9 mmol/L (3.5-5.1) 01/31/21 05:08 Chloride 107 mmol/L (98-107) 01/31/21 05:08 Carbon Dioxide 23.8 mmol/L (21-32) 01/31/21 05:08 BUN 13 mg/dL (7-18) 01/31/21 05:08 Creatinine 1.11 mg/dL (0.55-1.02) H 01/31/21 05:08 Est GFR (MDRD) Af Amer > 60 (>60) 01/31/21 05:08 Est GFR (MDRD) Non-Af 50 (>60) L 01/31/21 05:08 Glucose 161 mg/dL (65-99) H 01/31/21 05:08 Calcium 8.5 mg/dL (8.5-10.1) 01/31/21 05:08 Corrected Calcium 9.2 mg/dL (8.5-10.1) 01/31/21 05:08 Total Bilirubin 0.20 mg/dL (0.2-1.0) 01/31/21 05:08 AST 24 Units/L (15-37) 01/31/21 05:08 ALT 22 Units/L (12-78) 01/31/21 05:08 Alkaline Phosphatase 35 Units/L (46-116) L 01/31/21 05:08 Total Protein 5.8 g/dL (6.4-8.2) L 01/31/21 05:08 Albumin 3.1 g/dL (3.4-5.0) L 01/31/21 05:08 Globulin 2.7 g/dL (2.5-4.5) 01/31/21 05:08 Albumin/Globulin Ratio 1.1 Ratio (1.1-2.1) 01/31/21 05:08 - Plan (1) Bronchopneumonia Status: Acute Plan: Continue IV antibiotics, respiratory therapy, supplemental oxygen, corticosteroids, pulmonary toileting, and SmartVest. Encourage frequent ambulation and prophylactic anticoagulant therapy, as well as antitussive medications. We will repeat a.m. labs and a chest x-ray.
[2021-01-31] MEDS ORDERED: PLAVIX PO SCH (11:00)
[2021-01-31] MEDS ORDERED: TYLENOL 325 MG TAB PO PRN (11:38)
[2021-01-31] MEDS: SYNTHROID 50 mcg TAB PO SCH (11:45)
[2021-01-31] MEDS: TOPROL XL PO SCH (11:45)
[2021-01-31] MEDS: NYSTATIN SUSP PO SCH ×3 (13:53→21:25)
[2021-01-31] MEDS: TESSALON PERLES PO SCH ×2 (13:53→21:25)
[2021-01-31] MEDS: BENADRYL INJ 50 MG VIAL IV PRN (14:04)
[2021-01-31] MEDS ORDERED: ZyrTEC TAB 10 MG PO SCH (21:00)
[2021-01-31] MEDS ORDERED: CRESTOR TAB 10 MG PO SCH (21:00)
[2021-01-31] MEDS: LEVAQUIN PREMIX IV 750 MG 750 MG/150 ML BAG IV SCH (21:19)
[2021-01-31] MEDS: RESTORIL CAP 30 MG PO PRN (21:33)
[2021-02-01] MEDS: BENADRYL INJ 50 MG VIAL IV PRN (00:27)
[2021-02-01] MEDS: TUSSIONEX PENNKINETIC SUSP PO PRN (00:27)
[2021-02-01] MEDS ORDERED: NS 1/2 1000 ML IV 1,000 ML IV ONE (04:45)
[2021-02-01 05:29] LABS: BASOPHILS % (AUTO) 0.1 % (0.2-1.0); EOSINOPHILS % (AUTO) 0.1 % (0.9-2.9); HEMOGLOBIN 10.9 g/dL (12.0-16.0); LYMPHOCYTES # (AUTO) 0.8 X10^3/uL (1.3-2.9); LYMPHOCYTES % (AUTO) 7.4 % (21.0-51.0); MEAN CORPUSCULAR HEMOGLOBIN 32.3 pg (27.0-34.0); MEAN CORPUSCULAR HGB CONC 33.9 g/dL (33.0-35.0); MEAN CORPUSCULAR VOLUME 95.2 fL (80.0-100.0); MEAN PLATELET VOLUME 9.7 fL (7.4-11.0); MONOCYTES # (AUTO) 0.6 x10^3/uL (0.3-0.8); MONOCYTES % (AUTO) 5.2 % (0.0-13.0); NEUTROPHILS # (AUTO) 9.2 x10^3/uL (2.2-4.8); NEUTROPHILS % (AUTO) 87.2 % (42.0-75.0); PLATELET COUNT 162 X10^3/uL (150.0-450.0); RED BLOOD COUNT 3.36 X10^6/uL (3.5-5.4); RED CELL DISTRIBUTION WIDTH 13.3 % (11.6-16.5); WHITE BLOOD COUNT 10.6 X10^3/uL (3.6-10.0)
[2021-02-01] MEDS: NS 1/2 1000 ML IV 1,000 ML IV SCH (05:36)
[2021-02-01] MEDS: SOLU-Medrol 40 MG VIAL IVP SCH (05:36)
[2021-02-01] MEDS: TESSALON PERLES PO SCH (05:36)
[2021-02-01 05:44] LABS: CALCIUM 8.3 mg/dL (8.5-10.1); CARBON DIOXIDE 24.2 mmol/L (21-32); COR CA(FOR HYPOALB) 9.1 mg/dL (8.5-10.1); CREATININE 1.15 mg/dL (0.55-1.02); TOTAL PROTEIN 5.9 g/dL (6.4-8.2)
[2021-02-01 06:18] LABS: BAND NEUTROPHILS % 4 % (0-10); PLATELET MORPHOLOGY COMMENT NORMAL (NORMAL)
--- NOTE | 2021-02-01 06:48 | RAD ---
HISTORYSOBSTUDYCHEST, 1 [id number]/10/2021.TECHNIQUEAP view of the chestFINDINGSCardiac and mediastinal contours are within normal limits. Background of mild scattered interstitial opacities appears similar to prior. No consolidation. No definite pleural effusion or pneumothorax. ORIF of the left proximal humerus. Soft tissue attenuation limits evaluation.IMPRESSIONNo significant change.Electronically signed by: Jose Jensen (February 01, 2021 06:47:12)
[2021-02-01] MEDS: SALINE 0.9% 3 ML NEB TX NEB SCH ×2 (08:45→15:00)
[2021-02-01] MEDS: PULMICORT NEB TX 0.5 MG NEB SCH (08:45)
[2021-02-01] MEDS: DUONEB 0.5 MG/3 MG (3 mL) NEB SCH ×2 (08:45→15:00)
[2021-02-01] MEDS: PROTONIX INJ 40 MG VIAL IVP SCH (09:28)
[2021-02-01] MEDS: FORTAZ or TAZICEF VIAL INJ 1 G in NS 100 ML IV + SPIKE MINIBAG* 100 ML IV SCH (09:28)
[2021-02-01] MEDS: MIRAPEX TAB 0.25 MG PO SCH (09:29)
[2021-02-01] MEDS: TOPROL XL PO SCH (09:29)
[2021-02-01] MEDS: SYNTHROID 50 mcg TAB PO SCH (09:30)
[2021-02-01] MEDS: VSL#3 PO SCH (09:30)
[2021-02-01] MEDS: NYSTATIN SUSP PO SCH (09:31)
[2021-02-01] MEDS: PEPCID 20 MG IV PREMIX* 20 MG/50 ML BAG IV SCH (09:31)
[2021-02-01 13:20] VITALS: BP 181/95
== END 2021-02-01 13:05 | disposition home or self-care (01) | DRG 194 ==
LOC: ICU → OBSVTOIN 16:18 → MED/SURG 01-29 14:45
PROVIDERS: ADMIT Internal Medicine; ATTEND Internal Medicine
DX: Z66 Do not resuscitate; J44.1 Chronic obstructive pulmonary disease with (acute) exacerbation; I10 Essential (primary) hypertension; E78.2 Mixed hyperlipidemia; E03.8 Other specified hypothyroidism; R06.02 Shortness of breath; J18.0 Bronchopneumonia, unspecified organism; R06.03 Acute respiratory distress

== ENCOUNTER 2022-07-17 11:01 | Inpatient (IN) ==
[2022-07-17] MEDS ORDERED: SALINE 3% 15 ML NEB TX ONE ×2 (12:43→12:49)
[2022-07-17] MEDS ORDERED: SALINE 3% 15 ML NEB TX NEB ONE (12:50)
[2022-07-17] MEDS: XOPENEX 1.25 MG/3 ML NEBULE NEB SCH ×3 (12:55→17:09)
[2022-07-17] MEDS ORDERED: SOLU-Medrol 125 MG VIAL IVP ONE (13:06)
[2022-07-17 14:24] LABS: EOSINOPHILS # (AUTO) 0.4 x10^3/uL (0.0-0.2); HEMOGLOBIN 12.5 g/dL (12.0-16.0); WHITE BLOOD COUNT 9.5 X10^3/uL (3.6-10.0)
[2022-07-17] MEDS ORDERED: NS 1/2 1,000 ML IV 1,000 ML IV ONE (14:24)
[2022-07-17] MEDS: ROBITUSSIN DM PO SCH ×3 (14:33→20:50)
[2022-07-17] MEDS: LEVAQUIN PREMIX IV 750 MG 750 MG/150 ML BAG IV SCH (14:33)
[2022-07-17] MEDS: NS 1/2 1,000 ML IV 1,000 ML IV SCH (14:33)
[2022-07-17 14:36] LABS: ALANINE AMINOTRANSFERASE 17 Units/L (12-78); ALBUMIN 3.4 g/dL (3.4-5.0); ALKALINE PHOSPHATASE 69 Units/L (46-116); ASPARTATE AMINO TRANSFERASE 16 Units/L (15-37); BLOOD UREA NITROGEN 11 mg/dL (7-18); CALCIUM 8.4 mg/dL (8.5-10.1); CARBON DIOXIDE 28.3 mmol/L (21-32); CHLORIDE 106 mmol/L (98-107); CREATININE 0.97 mg/dL (0.55-1.02); SODIUM 138 mmol/L (136-145); TOTAL PROTEIN 6.6 g/dL (6.4-8.2); eGFR NON BLACK RACES 58 (>60)
[2022-07-17 14:39] LABS: BASOPHILS # (AUTO) 0.1 X10^3/uL (0.0-0.1); EOSINOPHILS % (AUTO) 4.2 % (0.9-2.9); HEMATOCRIT 36.3 % (36.0-47.0); LYMPHOCYTES # (AUTO) 3.1 X10^3/uL (1.3-2.9); LYMPHOCYTES % (AUTO) 32.6 % (21.0-51.0); MEAN CORPUSCULAR HEMOGLOBIN 30.9 pg (27.0-34.0); MEAN CORPUSCULAR HGB CONC 34.5 g/dL (33.0-35.0); MEAN CORPUSCULAR VOLUME 89.5 fL (80.0-100.0); MEAN PLATELET VOLUME 8.5 fL (7.4-11.0); MONOCYTES # (AUTO) 0.7 x10^3/uL (0.3-0.8); MONOCYTES % (AUTO) 6.9 % (0.0-13.0); NEUTROPHILS # (AUTO) 5.3 x10^3/uL (2.2-4.8); NEUTROPHILS % (AUTO) 55.3 % (42.0-75.0); RED BLOOD COUNT 4.05 X10^6/uL (3.5-5.4); RED CELL DISTRIBUTION WIDTH 14.1 % (11.6-16.5)
--- NOTE | 2022-07-17 14:43 | DR.H&P ---
H&P History & Physical for Day of: H&P Date: 07/17/22 Chief Complaint Chief Complaint: Chronic cough with dyspnea Allergies Allergies Allergy/AdvReac Type Severity Reaction Status Date / Time No Known Drug Allergies Allergy Verified 07/17/22 14:03 History of Present Illness History of Present Illness: This is a pleasant 82-year-old white female well- known to me. She has a an extensive history of bronchiectasis with intermittent flareups. We have been treating her now as outpatient for 4 weeks trying to get her chest clear but she still has severe and diffuse anterior posterior rhonchi along with anterior posterior scattered wheezing. She has felt different oral antibiotics as outpatient and also failed outpatient intramuscular Rocephin shots along with intramuscular Kenalog shots. She is noted to be mildly hypoxemic with O2 sat 94 to 95% on room air. This is been going on now for 4 weeks as he has failed outpatient therapy so I will be admitting her as a direct admit to my service. I will treat her for an exacerbation of bronchiectasis. Past Medical History Past Medical History: Arthritis, Asthma, CHF, COPD, GERD and Hyperthyroidism Past Surgical History Surgical History: Appendectomy, Cholecystectomy, Hysterectomy, Ortho Surgery and Tonsillectomy Family History Family Medical History: Cancer, PA and Hypertension Social History Does patient currently use any type of tobacco product: No Have you used tobacco products in the last 12 months: No Type of Tobacco Use: None Does any household member use tobacco: No Alcohol Use: None Drug Use: None Medications Home Medications: No Known Drug Allergies Allergy (Verified 07/17/22 14:03) CONTINUE taking the following medications alprazolam 0.25 mg tablet 1 tab PO BID PRN Anxiety 07/17/22 [History] amlodipine 5 mg tablet 5 mg PO HS 07/17/22 [History] cefuroxime axetil 500 mg tablet 1 tab PO BID 07/17/22 [History] furosemide 40 mg tablet 1 tab PO BID PRN 07/17/22 [History] hydrocodone 7.5 mg-acetaminophen 325 mg tablet 1 tab PO TID PRN Pain 07/17/22 [History] ipratropium 0.5 mg-albuterol 3 mg (2.5 mg base)/3 mL nebulization soln 1 neb NEB QID PRN Shortness Of Breath 07/17/22 [History] meloxicam 7.5 mg tablet 7.5 mg PO DAILY 07/17/22 [History] omeprazole 20 mg capsule,delayed release 1 cap PO BID 07/17/22 [History] potassium chloride 10 mEq capsule,extended release 30 meq PO DAILY PRN 07/17/22 [History] Labs Result Diagrams: 07/17/22 13:52 07/17/22 13:52 Review of Systems Constitutional: Weakness and Malaise Eyes: No Symptoms Reported ENT: No Symptoms Reported Respiratory: Cough, Shortness of Breath, SOB with Excertion and Wheezing Cardiovascular: No Symptoms Reported Gastrointestinal: No Symptoms Reported Genitourinary: No Symptoms Reported Musculoskeletal: No Symptoms Reported Skin: No Symptoms Reported Neurological: No Symptoms Reported Physical Exam Vital Signs: Temperature 98.2 F Pulse Rate [Left Radial] 78 Pulse Rate 75 Respiratory Rate 20 Blood Pressure [Left Arm] 140/70 Blood Pressure [Right Arm] 159/75 Blood Pressure 129/71 O2 Sat by Pulse Oximetry 93 Oriented: Normal, Time, Person and Place Ear: Normal Nose: Normal Throat: Normal Respiratory: Diminished Throughout, Rhonchi Throughout and Wheezes Throughout Cardiovascular: Normal Auscultation: Bowel Sounds: Normal Palpation: Normal Tenderness: Normal Skin: Normal Musculoskeletal: Normal Psychiatric: Normal Mood Description: Calm Affect: Normal Speech Pattern: Clear and Appropriate Assessment/Plan (1) Acute exacerbation of bronchiectasis: Narrative Support Text: Patient has been receiving oral antibiotic therapy along with steroids and inhaled duo nebs as an outpatient. This is been going on for 4 weeks and has no t resolved her symptoms. Because of that direct admit her to the hospital today to start IV antibiotic therapy along with IV steroids duo nebs and respiratory consult. Status: Acute Plan: IV Fortaz and Levaquin. IV Solu-Medrol 125 mg IV x1 then 60 mg IV every 8 hours along with duo nebs and respiratory consult. (2) Benign essential HTN: Status: Chronic Plan: Monitor blood pressures (3) Chronic GERD: Status: Chronic (4) Generalized weakness: Status: Chronic Plan: Monitor for improvement. Review H&P Reviewed: Yes Patient was examined?: Yes
[2022-07-17] MEDS ORDERED: XOPENEX 1.25 MG/3 ML NEBULE NEB ONE (16:30)
[2022-07-17] MEDS ORDERED: Atrovent NEB TX 0.02% ONE (16:30)
[2022-07-17] MEDS: Atrovent NEB TX 0.02% NEB SCH ×2 (16:40→17:09)
[2022-07-17] MEDS: FORTAZ or TAZICEF VIAL INJ 1 G in NS 100 ML IV 100 ML IV SCH ×2 (16:47→21:01)
--- NOTE | 2022-07-17 17:41 | RAD ---
CHEST, 1 VIEWHISTORY: PneumoniaStudy: Single view of the chest.Comparison:February 01, 2021Findings:The cardiomediastinal silhouette is normal.No focal consolidations, pleural effusions or pneumothorax. Osseous structures demonstrate no acute abnormality.IMPRESSION:1. No acute cardiopulmonary process.Electronically signed by: SONYA MCCALL (Jul 17, 2022 17:40:01)
[2022-07-17] MEDS ORDERED: PULMICORT NEB TX 0.5 MG NEB ONE (19:57)
[2022-07-17] MEDS: PULMICORT NEB TX 0.5 MG NEB SCH (21:08)
[2022-07-17] MEDS: SOLU-Medrol 40 MG VIAL IVP SCH (21:44)
[2022-07-18] MEDS ORDERED: NS 1/2 1,000 ML IV 1,000 ML IV ONE ×2 (00:18→19:34)
[2022-07-18] MEDS: TUSSIONEX PENNKINETIC SUSP PO PRN ×2 (01:39→19:39)
[2022-07-18] MEDS: NS 1/2 1,000 ML IV 1,000 ML IV SCH ×2 (02:00→19:39)
[2022-07-18] MEDS: FORTAZ or TAZICEF VIAL INJ 1 G in NS 100 ML IV 100 ML IV SCH ×3 (05:01→21:05)
[2022-07-18] MEDS: SOLU-Medrol 40 MG VIAL IVP SCH ×3 (05:01→21:05)
[2022-07-18] MEDS: XOPENEX 1.25 MG/3 ML NEBULE NEB SCH ×4 (06:00→17:13)
[2022-07-18] MEDS: Atrovent NEB TX 0.02% NEB SCH ×4 (06:00→17:13)
[2022-07-18 06:16] LABS: BASOPHILS % (AUTO) 0.4 % (0.2-1.0); HEMOGLOBIN 12.7 g/dL (12.0-16.0); LYMPHOCYTES # (AUTO) 0.9 X10^3/uL (1.3-2.9); LYMPHOCYTES % (AUTO) 15.9 % (21.0-51.0); MEAN CORPUSCULAR HEMOGLOBIN 31.1 pg (27.0-34.0); MEAN CORPUSCULAR HGB CONC 35.1 g/dL (33.0-35.0); MEAN CORPUSCULAR VOLUME 88.5 fL (80.0-100.0); MEAN PLATELET VOLUME 8.5 fL (7.4-11.0); MONOCYTES # (AUTO) 0.1 x10^3/uL (0.3-0.8); NEUTROPHILS # (AUTO) 4.9 x10^3/uL (2.2-4.8); NEUTROPHILS % (AUTO) 82.7 % (42.0-75.0); RED BLOOD COUNT 4.07 X10^6/uL (3.5-5.4); RED CELL DISTRIBUTION WIDTH 13.8 % (11.6-16.5); WHITE BLOOD COUNT 5.9 X10^3/uL (3.6-10.0)
[2022-07-18 06:20] LABS: BLOOD UREA NITROGEN 12 mg/dL (7-18); CALCIUM 8.9 mg/dL (8.5-10.1); CARBON DIOXIDE 23.5 mmol/L (21-32); CHLORIDE 104 mmol/L (98-107); COR NA(FOR HYPERGLY) 141 mmol/L (136-145); CREATININE 0.87 mg/dL (0.55-1.02); SODIUM 139 mmol/L (136-145); eGFR NON BLACK RACES > 60 (>60)
[2022-07-18] MEDS: LEVAQUIN PREMIX IV 750 MG 750 MG/150 ML BAG IV SCH (08:23)
[2022-07-18] MEDS: ROBITUSSIN DM PO SCH ×4 (08:23→21:04)
[2022-07-18] MEDS: PULMICORT NEB TX 0.5 MG NEB SCH ×2 (08:27→21:08)
[2022-07-18 12:00] LABS: ALANINE AMINOTRANSFERASE 17 Units/L (12-78); ALBUMIN 3.3 g/dL (3.4-5.0); ALKALINE PHOSPHATASE 65 Units/L (46-116); ASPARTATE AMINO TRANSFERASE 14 Units/L (15-37); COR CA(FOR HYPOALB) 9.5 mg/dL (8.5-10.1); TOTAL PROTEIN 6.5 g/dL (6.4-8.2)
[2022-07-18] MEDS: TYLENOL 325 MG TAB PO PRN (16:00)
[2022-07-18] MEDS: PriLOSEC PO SCH (17:19)
[2022-07-19] MEDS: XOPENEX 1.25 MG/3 ML NEBULE NEB SCH ×4 (00:19→17:06)
[2022-07-19] MEDS: Atrovent NEB TX 0.02% NEB SCH ×4 (00:19→17:06)
[2022-07-19 05:09] LABS: BASOPHILS % (AUTO) 0.1 % (0.2-1.0); HEMATOCRIT 33.9 % (36.0-47.0); HEMOGLOBIN 11.8 g/dL (12.0-16.0); LYMPHOCYTES # (AUTO) 0.7 X10^3/uL (1.3-2.9); LYMPHOCYTES % (AUTO) 6.3 % (21.0-51.0); MEAN CORPUSCULAR HEMOGLOBIN 30.6 pg (27.0-34.0); MEAN CORPUSCULAR HGB CONC 34.7 g/dL (33.0-35.0); MEAN CORPUSCULAR VOLUME 88.3 fL (80.0-100.0); MEAN PLATELET VOLUME 8.7 fL (7.4-11.0); MONOCYTES # (AUTO) 0.3 x10^3/uL (0.3-0.8); MONOCYTES % (AUTO) 2.8 % (0.0-13.0); NEUTROPHILS # (AUTO) 9.5 x10^3/uL (2.2-4.8); NEUTROPHILS % (AUTO) 90.8 % (42.0-75.0); RED BLOOD COUNT 3.84 X10^6/uL (3.5-5.4); RED CELL DISTRIBUTION WIDTH 13.9 % (11.6-16.5); WHITE BLOOD COUNT 10.5 X10^3/uL (3.6-10.0)
[2022-07-19] MEDS: SOLU-Medrol 40 MG VIAL IVP SCH ×3 (05:13→21:23)
[2022-07-19] MEDS: FORTAZ or TAZICEF VIAL INJ 1 G in NS 100 ML IV 100 ML IV SCH ×3 (05:13→22:26)
[2022-07-19 05:22] LABS: ALANINE AMINOTRANSFERASE 13 Units/L (12-78); ALKALINE PHOSPHATASE 60 Units/L (46-116); ASPARTATE AMINO TRANSFERASE 12 Units/L (15-37); BLOOD UREA NITROGEN 15 mg/dL (7-18); CALCIUM 8.2 mg/dL (8.5-10.1); CARBON DIOXIDE 20.3 mmol/L (21-32); CHLORIDE 104 mmol/L (98-107); COR NA(FOR HYPERGLY) 138 mmol/L (136-145); CREATININE 1.01 mg/dL (0.55-1.02); SODIUM 136 mmol/L (136-145); TOTAL PROTEIN 5.9 g/dL (6.4-8.2); eGFR NON BLACK RACES 56 (>60)
[2022-07-19 05:27] LABS: PLATELET MORPHOLOGY COMMENT NORMAL (NORMAL)
[2022-07-19] MEDS: PULMICORT NEB TX 0.5 MG NEB SCH ×2 (08:21→21:00)
[2022-07-19] MEDS: LOVENOX INJ 40 MG SYR SC SCH (09:34)
[2022-07-19] MEDS: ROBITUSSIN DM PO SCH ×4 (09:34→20:57)
[2022-07-19] MEDS: LEVAQUIN PREMIX IV 750 MG 750 MG/150 ML BAG IV SCH (09:34)
[2022-07-19] MEDS: PriLOSEC PO SCH ×2 (09:35→20:56)
[2022-07-19] MEDS ORDERED: NS 1/2 1,000 ML IV 1,000 ML IV ONE (12:58)
[2022-07-19] MEDS: NS 1/2 1,000 ML IV 1,000 ML IV SCH ×2 (13:06→21:22)
[2022-07-19] MEDS: TYLENOL 325 MG TAB PO PRN (17:26)
--- NOTE | 2022-07-19 19:19 | PCM.PROG ---
Progress Note Progress Note for Day of Date of Exam: 07/18/22 Subjective Subjective: Patient reports her breathing is much improved since the previous day coming in. She does not feel can congested in her chest near as much as she had previously. She is responding well to treatment so we will continue him about doing at this time. Past Medical Family Social History Allergies: Allergies No Known Drug Allergies Allergy (Verified 07/17/22 14:03) Vital Signs and I&O's Vital Signs: Temperature 98.9 F Pulse Rate [Left Radial] 88 Pulse Rate 104 Respiratory Rate 18 Blood Pressure [Left Arm] 140/68 Blood Pressure [Right Arm] 159/75 Blood Pressure 129/71 O2 Sat by Pulse Oximetry 94 Intake and Output: Intake & Output 07/17/22 07/18/22 07/19/22 07/20/22 11:59 11:59 11:59 11:59 Intake Total 1987 2535 / 2535 1780 / 1780 Balance 1987 2535 / 5 1780 / 1780 Physical Exam Oriented: Normal, Time, Person and Place Ear: Normal Nose: Normal Throat: Normal Respiratory: Generalized and Rhonchi Cardiovascular: Normal Auscultation: Bowel Sounds: Normal Tenderness: Normal Skin: Normal Musculoskeletal: Normal Psychiatric: Normal Mood Description: Calm Affect: Normal Speech Pattern: Clear and Appropriate Laboratory and Diagnostics Result Diagrams: 07/19/22 04:34 07/19/22 04:34 Labs: 07/17/22 13:45 Blood Blood Culture - Preliminary 07/17/22 13:52 Blood Blood Culture - Preliminary 07/17/22 13:18 Sputum - Expectorated Sputum Sputum Culture - Preliminary 07/17/22 13:18 Sputum - Expectorated Sputum - Final Laboratory WBC 10.5 X10^3/uL (3.6-10.0) H 07/19/22 04:34 RBC 3.84 X10^6/uL (3.5-5.4) 07/19/22 04:34 Hgb 11.8 g/dL (12.0-16.0) L 07/19/22 04:34 Hct 33.9 % (36.0-47.0) L 07/19/22 04:34 MCV 88.3 fL (80.0-100.0) 07/19/22 04:34 MCH 30.6 pg (27.0-34.0) 07/19/22 04:34 MCHC 34.7 g/dL (33.0-35.0) 07/19/22 04:34 RDW 13.9 % (11.6-16.5) 07/19/22 04:34 Plt Count 259 X10^3/uL (150.0-450.0) 07/19/22 04:34 Plt Count Comment Adequate (ADEQUATE) 07/19/22 04:34 MPV 8.7 fL (7.4-11.0) 07/19/22 04:34 Neut % (Auto) 90.8 % (42.0-75.0) H 07/19/22 04:34 Lymph % (Auto) 6.3 % (21.0-51.0) L 07/19/22 04:34 [place] % (Auto) 2.8 % (0.0-13.0) 07/19/22 04:34 Eos % (Auto) 0.0 % (0.9-2.9) L 07/19/22 04:34 Baso % (Auto) 0.1 % (0.2-1.0) L 07/19/22 04:34 Neut # (Auto) 9.5 x10^3/uL (2.2-4.8) H 07/19/22 04:34 Lymph # (Auto) 0.7 X10^3/uL (1.3-2.9) L 07/19/22 04:34 [place] # (Auto) 0.3 x10^3/uL (0.3-0.8) 07/19/22 04:34 Eos # (Auto) 0.0 x10^3/uL (0.0-0.2) 07/19/22 04:34 Baso # (Auto) 0.0 X10^3/uL (0.0-0.1) 07/19/22 04:34 Absolute Nucleated RBC 0.0 /100WBC 07/19/22 04:34 Total Counted 100 07/19/22 04:34 Neutrophils % (Manual) 91 % (39-76) H 07/19/22 04:34 Lymphocytes % (Manual) 7 % (13-43) L 07/19/22 04:34 Monocytes % (Manual) 2 % (4-9) L 07/19/22 04:34 Plt Morphology Comment Normal (NORMAL) 07/19/22 04:34 RBC Morphology Normal (NORMAL) 07/19/22 04:34 Sodium 136 mmol/L (136-145) 07/19/22 04:34 Corrected Sodium 138 mmol/L (136-145) 07/19/22 04:34 Potassium 3.8 mmol/L (3.5-5.1) 07/19/22 04:34 Chloride 104 mmol/L (98-107) 07/19/22 04:34 Carbon Dioxide 20.3 mmol/L (21-32) L 07/19/22 04:34 BUN 15 mg/dL (7-18) 07/19/22 04:34 Creatinine 1.01 mg/dL (0.55-1.02) 07/19/22 04:34 Est GFR (MDRD) Af Amer > 60 (>60) 07/19/22 04:34 Est GFR (MDRD) Non-Af 56 (>60) L 07/19/22 04:34 Glucose 172 mg/dL (65-99) H 07/19/22 04:34 Calcium 8.2 mg/dL (8.5-10.1) L 07/19/22 04:34 Corrected Calcium 9.0 mg/dL (8.5-10.1) 07/19/22 04:34 Total Bilirubin 0.20 mg/dL (0.2-1.0) 07/19/22 04:34 AST 12 Units/L (15-37) L 07/19/22 04:34 ALT 13 Units/L (12-78) 07/19/22 04:34 Alkaline Phosphatase 60 Units/L (46-116) 07/19/22 04:34 Total Protein 5.9 g/dL (6.4-8.2) L 07/19/22 04:34 Albumin 3.0 g/dL (3.4-5.0) L 07/19/22 04:34 Globulin 2.9 g/dL (2.5-4.5) 07/19/22 04:34 Albumin/Globulin Ratio 1.0 Ratio (1.1-2.1) L 07/19/22 04:34 SARS-CoV-2 (PCR) Negative (NEGATIVE) 07/17/22 15:26 Influenza Type A (PCR) Negative (NEGATIVE) 07/17/22 15:26 Influenza Type B (PCR) Negative (NEGATIVE) 07/17/22 15:26 RSV (PCR) Negative (NEGATIVE) 07/17/22 15:26 Plan (1) Acute exacerbation of bronchiectasis: Status: Acute Narrative Support Text: Overall improved since admission. Plan: IV Fortaz and Levaquin. IV Solu-Medrol 125 mg IV x1 then 60 mg IV every 8 hours along with duo nebs and respiratory consult. (2) Benign essential HTN: Status: Chronic Plan: Monitor blood pressures (3) Chronic GERD: Status: Chronic (4) Generalized weakness: Status: Chronic Plan: Monitor for improvement.
[2022-07-19] MEDS ORDERED: NORCO 7.5/325 MG TAB PO PRN (19:20)
[2022-07-19] MEDS ORDERED: RESTORIL CAP 30 MG PO PRN (19:20)
--- NOTE | 2022-07-19 19:20 | PCM.PROG ---
Progress Note Progress Note for Day of Date of Exam: 07/19/22 Subjective Subjective: Patient reports her breathing is not as good this morning as yesterday. She reports having a rough night last night and did not sleep well either. Her labs look fairly good this morning do not her glucose is elevated from the Solu-Medrol she has been receiving. I will decrease her Solu-Medrol to 60 mg IV every 12 from twice daily. Continue current treatment follow-up with sputum cultures when available. Past Medical Family Social History Allergies: Allergies No Known Drug Allergies Allergy (Verified 07/17/22 14:03) Vital Signs and I&O's Vital Signs: Temperature 98.9 F Pulse Rate [Left Radial] 88 Pulse Rate 104 Respiratory Rate 18 Blood Pressure [Left Arm] 140/68 Blood Pressure [Right Arm] 159/75 Blood Pressure 129/71 O2 Sat by Pulse Oximetry 94 Intake and Output: Intake & Output 07/17/22 07/18/22 07/19/22 07/20/22 11:59 11:59 11:59 11:59 Intake Total 1987 2535 / 2535 1780 / 1780 Balance 1987 2535 / 2535 1780 / 1780 Physical Exam Oriented: Normal, Time, Person and Place Ear: Normal Nose: Normal Throat: Normal Respiratory: Generalized and Rhonchi Cardiovascular: Normal Auscultation: Bowel Sounds: Normal Tenderness: Normal Skin: Normal Musculoskeletal: Normal Psychiatric: Normal Mood Description: Calm Affect: Normal Speech Pattern: Clear and Appropriate Laboratory and Diagnostics Result Diagrams: 07/19/22 04:34 07/19/22 04:34 Labs: 07/17/22 13:45 Blood Blood Culture - Preliminary 07/17/22 13:52 Blood Blood Culture - Preliminary 07/17/22 13:18 Sputum - Expectorated Sputum Sputum Culture - Preliminary 07/17/22 13:18 Sputum - Expectorated Sputum - Final Laboratory WBC 10.5 X10^3/uL (3.6-10.0) H 07/19/22 04:34 RBC 3.84 X10^6/uL (3.5-5.4) 07/19/22 04:34 Hgb 11.8 g/dL (12.0-16.0) L 07/19/22 04:34 Hct 33.9 % (36.0-47.0) L 07/19/22 04:34 MCV 88.3 fL (80.0-100.0) 07/19/22 04:34 MCH 30.6 pg (27.0-34.0) 07/19/22 04:34 MCHC 34.7 g/dL (33.0-35.0) 07/19/22 04:34 RDW 13.9 % (11.6-16.5) 07/19/22 04:34 Plt Count 259 X10^3/uL (150.0-450.0) 07/19/22 04:34 Plt Count Comment Adequate (ADEQUATE) 07/19/22 04:34 MPV 8.7 fL (7.4-11.0) 07/19/22 04:34 Neut % (Auto) 90.8 % (42.0-75.0) H 07/19/22 04:34 Lymph % (Auto) 6.3 % (21.0-51.0) L 07/19/22 04:34 [place] % (Auto) 2.8 % (0.0-13.0) 07/19/22 04:34 Eos % (Auto) 0.0 % (0.9-2.9) L 07/19/22 04:34 Baso % (Auto) 0.1 % (0.2-1.0) L 07/19/22 04:34 Neut # (Auto) 9.5 x10^3/uL (2.2-4.8) H 07/19/22 04:34 Lymph # (Auto) 0.7 X10^3/uL (1.3-2.9) L 07/19/22 04:34 [place] # (Auto) 0.3 x10^3/uL (0.3-0.8) 07/19/22 04:34 Eos # (Auto) 0.0 x10^3/uL (0.0-0.2) 07/19/22 04:34 Baso # (Auto) 0.0 X10^3/uL (0.0-0.1) 07/19/22 04:34 Absolute Nucleated RBC 0.0 /100WBC 07/19/22 04:34 Total Counted 100 07/19/22 04:34 Neutrophils % (Manual) 91 % (39-76) H 07/19/22 04:34 Lymphocytes % (Manual) 7 % (13-43) L 07/19/22 04:34 Monocytes % (Manual) 2 % (4-9) L 07/19/22 04:34 Plt Morphology Comment Normal (NORMAL) 07/19/22 04:34 RBC Morphology Normal (NORMAL) 07/19/22 04:34 Sodium 136 mmol/L (136-145) 07/19/22 04:34 Corrected Sodium 138 mmol/L (136-145) 07/19/22 04:34 Potassium 3.8 mmol/L (3.5-5.1) 07/19/22 04:34 Chloride 104 mmol/L (98-107) 07/19/22 04:34 Carbon Dioxide 20.3 mmol/L (21-32) L 07/19/22 04:34 BUN 15 mg/dL (7-18) 07/19/22 04:34 Creatinine 1.01 mg/dL (0.55-1.02) 07/19/22 04:34 Est GFR (MDRD) Af Amer > 60 (>60) 07/19/22 04:34 Est GFR (MDRD) Non-Af 56 (>60) L 07/19/22 04:34 Glucose 172 mg/dL (65-99) H 07/19/22 04:34 Calcium 8.2 mg/dL (8.5-10.1) L 07/19/22 04:34 Corrected Calcium 9.0 mg/dL (8.5-10.1) 07/19/22 04:34 Total Bilirubin 0.20 mg/dL (0.2-1.0) 07/19/22 04:34 AST 12 Units/L (15-37) L 07/19/22 04:34 ALT 13 Units/L (12-78) 07/19/22 04:34 Alkaline Phosphatase 60 Units/L (46-116) 07/19/22 04:34 Total Protein 5.9 g/dL (6.4-8.2) L 07/19/22 04:34 Albumin 3.0 g/dL (3.4-5.0) L 07/19/22 04:34 Globulin 2.9 g/dL (2.5-4.5) 07/19/22 04:34 Albumin/Globulin Ratio 1.0 Ratio (1.1-2.1) L 07/19/22 04:34 SARS-CoV-2 (PCR) Negative (NEGATIVE) 07/17/22 15:26 Influenza Type A (PCR) Negative (NEGATIVE) 07/17/22 15:26 Influenza Type B (PCR) Negative (NEGATIVE) 07/17/22 15:26 RSV (PCR) Negative (NEGATIVE) 07/17/22 15:26 Plan (1) Acute exacerbation of bronchiectasis: Status: Acute Plan: IV Fortaz and Levaquin. IV Solu-Medrol 125 mg IV x1 then 60 mg IV every 8 hours along with duo nebs and respiratory consult. (2) Benign essential HTN: Status: Chronic Plan: Monitor blood pressures (3) Chronic GERD: Status: Chronic Plan: I will restart the patient's omeprazole 40 mg twice daily. (4) Generalized weakness: Status: Chronic Plan: Monitor for improvement. (5) Insomnia: Status: Acute Plan: I will restart the patient's temazepam 30 mg at bedtime.
[2022-07-19] MEDS: MIRAPEX TAB 0.25 MG PO SCH (20:52)
[2022-07-19] MEDS: NORVASC TAB 5 MG PO SCH (20:56)
[2022-07-19] MEDS: TUSSIONEX PENNKINETIC SUSP PO PRN (20:58)
[2022-07-19] MEDS ORDERED: PriLOSEC PO SCH (21:00)
[2022-07-19] MEDS ORDERED: RESTORIL CAP 15 MG PO ONE (21:02)
[2022-07-19] MEDS: RESTORIL CAP 15 MG PO PRN (21:23)
[2022-07-19] MEDS: XANAX PO PRN (21:23)
[2022-07-20] MEDS ORDERED: NS 1/2 1,000 ML IV 1,000 ML IV ONE ×2 (02:56→09:37)
[2022-07-20] MEDS: NS 1/2 1,000 ML IV 1,000 ML IV SCH ×2 (03:24→10:05)
[2022-07-20] MEDS: FORTAZ or TAZICEF VIAL INJ 1 G in NS 100 ML IV 100 ML IV SCH ×3 (05:04→21:00)
[2022-07-20] MEDS: Atrovent NEB TX 0.02% NEB SCH ×5 (05:30→18:47)
[2022-07-20] MEDS: XOPENEX 1.25 MG/3 ML NEBULE NEB SCH ×5 (05:30→18:47)
[2022-07-20 06:28] LABS: BASOPHILS % (AUTO) 0.1 % (0.2-1.0); HEMATOCRIT 33.5 % (36.0-47.0); HEMOGLOBIN 11.7 g/dL (12.0-16.0); LYMPHOCYTES # (AUTO) 0.5 X10^3/uL (1.3-2.9); LYMPHOCYTES % (AUTO) 5.4 % (21.0-51.0); MEAN CORPUSCULAR HEMOGLOBIN 30.8 pg (27.0-34.0); MEAN CORPUSCULAR HGB CONC 34.8 g/dL (33.0-35.0); MEAN CORPUSCULAR VOLUME 88.7 fL (80.0-100.0); MEAN PLATELET VOLUME 8.7 fL (7.4-11.0); MONOCYTES # (AUTO) 0.4 x10^3/uL (0.3-0.8); MONOCYTES % (AUTO) 3.8 % (0.0-13.0); NEUTROPHILS # (AUTO) 8.6 x10^3/uL (2.2-4.8); NEUTROPHILS % (AUTO) 90.7 % (42.0-75.0); RED BLOOD COUNT 3.78 X10^6/uL (3.5-5.4); RED CELL DISTRIBUTION WIDTH 13.9 % (11.6-16.5); WHITE BLOOD COUNT 9.4 X10^3/uL (3.6-10.0)
[2022-07-20 06:47] LABS: ALANINE AMINOTRANSFERASE 16 Units/L (12-78); ALBUMIN 2.9 g/dL (3.4-5.0); ALKALINE PHOSPHATASE 58 Units/L (46-116); ASPARTATE AMINO TRANSFERASE 15 Units/L (15-37); BLOOD UREA NITROGEN 16 mg/dL (7-18); CALCIUM 8.5 mg/dL (8.5-10.1); CARBON DIOXIDE 21.7 mmol/L (21-32); CHLORIDE 107 mmol/L (98-107); COR CA(FOR HYPOALB) 9.4 mg/dL (8.5-10.1); COR NA(FOR HYPERGLY) 142 mmol/L (136-145); CREATININE 0.96 mg/dL (0.55-1.02); SODIUM 141 mmol/L (136-145); TOTAL PROTEIN 5.7 g/dL (6.4-8.2); eGFR NON BLACK RACES 59 (>60)
[2022-07-20 07:41] LABS: BAND NEUTROPHILS % 1 % (0-10); PLATELET MORPHOLOGY COMMENT NORMAL (NORMAL)
[2022-07-20] MEDS: DIFLUCAN PO SCH (08:56)
[2022-07-20] MEDS: PriLOSEC PO SCH ×2 (08:56→20:09)
[2022-07-20] MEDS: MIRAPEX TAB 0.25 MG PO SCH ×2 (08:56→21:00)
[2022-07-20] MEDS: LOVENOX INJ 40 MG SYR SC SCH (08:57)
[2022-07-20] MEDS: ROBITUSSIN DM PO SCH ×4 (08:57→20:07)
[2022-07-20] MEDS: LEVAQUIN PREMIX IV 750 MG 750 MG/150 ML BAG IV SCH (08:58)
[2022-07-20] MEDS: PLAVIX PO SCH (08:58)
[2022-07-20] MEDS ORDERED: KLOR-CON PO PRN (09:22)
[2022-07-20] MEDS ORDERED: POTASSIUM CHL 60 MEQ/NS 0.45% 500 ML IV PRN (09:22)
[2022-07-20] MEDS ORDERED: POTASSIUM CHLORIDE LIQ 20 MEQ UDC PO PRN (09:22)
[2022-07-20] MEDS ORDERED: POTASSIUM CHL 40 MEQ/NS 0.45% 500 ML IV PRN (09:22)
[2022-07-20] MEDS ORDERED: MICRO K EXTEN CAP 10 MEQ PO PRN (09:22)
[2022-07-20] MEDS ORDERED: K-DUR TAB 20 MEQ PO PRN (09:22)
[2022-07-20] MEDS ORDERED: K-RIDER 10 MEQ/NS 100 ML 10 MEQ/100 ML BAG IV PRN (09:22)
[2022-07-20] MEDS: PULMICORT NEB TX 0.5 MG NEB SCH ×2 (09:32→20:15)
[2022-07-20] MEDS: SOLU-Medrol 40 MG VIAL IVP SCH ×2 (09:40→20:09)
--- NOTE | 2022-07-20 13:05 | RAD ---
HISTORYBROCHIECTASIS EXACERBATIONSTUDYCHEST, 1 [id number]/2022FINDINGSThe lungs are clear. No pneumothorax or significant effusion.Heart size is normal. The aorta is tortuous; this can be seen with atherosclerosis, hypertension, and aging.Bones are unremarkable. [Fixation hardware seen in the left proximal humerus.]IMPRESSION1. No significant abnormalityElectronically signed by: Maynor Scherer (Jul 20, 2022 13:03:37)
--- NOTE | 2022-07-20 16:17 | PCM.PROG ---
Progress Note Progress Note for Day of Date of Exam: 07/20/22 Subjective Subjective: Patient reports he is breathing little better today compared to yesterday. She still is congested and she is still coughing a lot. She got frustrated last night when they went bring her Tussionex which she asked for. I did tell her I do not want her taking it during the daytime but she might take a teaspoon at bedtime. I will order to be fully able to expectorate phlegm from her chest and I will also order a smart vest for today to see if this helps with her chest congestion. Past Medical Family Social History Allergies: Allergies No Known Drug Allergies Allergy (Verified 07/17/22 14:03) Review of Systems ROS: No change since H&P Vital Signs and I&O's Vital Signs: Temperature 98.7 F Pulse Rate [Left Radial] 80 Pulse Rate 82 Respiratory Rate 20 Blood Pressure [Left Arm] 142/80 Blood Pressure [Right Arm] 159/75 Blood Pressure 129/71 O2 Sat by Pulse Oximetry 93 Intake and Output: Intake & Output 07/18/22 07/19/22 07/20/22 07/21/22 11:59 11:59 11:59 11:59 Intake Total 1987 2535 / 2535 3780 / 3780 1768 / 1768 Balance 1987 2535 / 2535 3780 / 3780 1768 / 1768 Physical Exam Oriented: Normal, Time, Person and Place Ear: Normal Nose: Normal Throat: Normal Respiratory: Generalized and Rhonchi Cardiovascular: Normal Auscultation: Bowel Sounds: Normal Tenderness: Normal Skin: Normal Musculoskeletal: Normal Psychiatric: Normal Mood Description: Calm Affect: Normal Speech Pattern: Clear and Appropriate Laboratory and Diagnostics Result Diagrams: 07/20/22 05:27 07/20/22 05:27 Labs: 07/17/22 13:18 Sputum - Expectorated Sputum Sputum Culture - Preliminary 07/17/22 13:18 Sputum - Expectorated Sputum - Final 07/17/22 13:45 Blood Blood Culture - Preliminary 07/17/22 13:52 Blood Blood Culture - Preliminary Laboratory WBC 9.4 X10^3/uL (3.6-10.0) 07/20/22 05:27 RBC 3.78 X10^6/uL (3.5-5.4) 07/20/22 05:27 Hgb 11.7 g/dL (12.0-16.0) L 07/20/22 05:27 Hct 33.5 % (36.0-47.0) L 07/20/22 05:27 MCV 88.7 fL (80.0-100.0) 07/20/22 05:27 MCH 30.8 pg (27.0-34.0) 07/20/22 05: MCHC 34.8 g/dL (33.0-35.0) 07/20/22 05:27 RDW 13.9 % (11.6-16.5) 07/20/22 05:27 Plt Count 230 X10^3/uL (150.0-450.0) 07/20/22 05:27 Plt Count Comment Adequate (ADEQUATE) 07/20/22 05:27 MPV 8.7 fL (7.4-11.0) 07/20/22 05:27 Neut % (Auto) 90.7 % (42.0-75.0) H 07/20/22 05:27 Lymph % (Auto) 5.4 % (21.0-51.0) L 07/20/22 05:27 [place] % (Auto) 3.8 % (0.0-13.0) 07/20/22 05:27 Eos % (Auto) 0.0 % (0.9-2.9) L 07/20/22 05:27 Baso % (Auto) 0.1 % (0.2-1.0) L 07/20/22 05:27 Neut # (Auto) 8.6 x10^3/uL (2.2-4.8) H 07/20/22 05:27 Lymph # (Auto) 0.5 X10^3/uL (1.3-2.9) L 07/20/22 05:27 [place] # (Auto) 0.4 x10^3/uL (0.3-0.8) 07/20/22 05:27 Eos # (Auto) 0.0 x10^3/uL (0.0-0.2) 07/20/22 05:27 Baso # (Auto) 0.0 X10^3/uL (0.0-0.1) 07/20/22 05:27 Absolute Nucleated RBC 0.0 /100WBC 07/20/22 05:27 Total Counted 100 07/20/22 05:27 Neutrophils % (Manual) 87 % (39-76) H 07/20/22 05:27 Band Neutrophils % 1 % (0-10) 07/20/22 05:27 Lymphocytes % (Manual) 9 % (13-43) L 07/20/22 05:27 Monocytes % (Manual) 3 % (4-9) L 07/20/22 05:27 Plt Morphology Comment Normal (NORMAL) 07/20/22 05:27 RBC Morphology Normal (NORMAL) 07/20/22 05:27 Sodium 141 mmol/L (136-145) 07/20/22 05:27 Corrected Sodium 142 mmol/L (136-145) 07/20/22 05:27 Potassium 3.6 mmol/L (3.5-5.1) 07/20/22 05:27 Chloride 107 mmol/L (98-107) 07/20/22 05:27 Carbon Dioxide 21.7 mmol/L (21-32) 07/20/22 05:27 BUN 16 mg/dL (7-18) 07/20/22 05:27 Creatinine 0.96 mg/dL (0.55-1.02) 07/20/22 05:27 Est GFR (MDRD) Af Amer > 60 (>60) 07/20/22 05:27 Est GFR (MDRD) Non-Af 59 (>60) 07/20/22 05:27 Glucose 150 mg/dL (65-99) H 07/20/22 05:27 Calcium 8.5 mg/dL (8.5-10.1) 07/20/22 05:27 Corrected Calcium 9.4 mg/dL (8.5-10.1) 07/20/22 05:27 Total Bilirubin 0.20 mg/dL (0.2-1.0) 07/20/22 05:27 AST 15 Units/L (15-37) 07/20/22 05:27 ALT 16 Units/L (12-78) 07/20/22 05:27 Alkaline Phosphatase 58 Units/L (46-116) 07/20/22 05:27 Total Protein 5.7 g/dL (6.4-8.2) L 07/20/22 05:27 Albumin 2.9 g/dL (3.4-5.0) L 07/20/22 05:27 Globulin 2.8 g/dL (2.5-4.5) 07/20/22 05:27 Albumin/Globulin Ratio 1.0 Ratio (1.1-2.1) L 07/20/22 05:27 SARS-CoV-2 (PCR) Negative (NEGATIVE) 07/17/22 15:26 Influenza Type A (PCR) Negative (NEGATIVE) 07/17/22 15:26 Influenza Type B (PCR) Negative (NEGATIVE) 07/17/22 15:26 RSV (PCR) Negative (NEGATIVE) 07/17/22 15:26 Plan (1) Acute exacerbation of bronchiectasis: Status: Acute Narrative Support Text: Patient did grew out yeast in her sputum so I will add p.o. Diflucan. Plan: IV Fortaz and Levaquin. IV Solu-Medrol 125 mg IV x1 then 60 mg IV every 12 hours along with duo nebs and respiratory consult. Patient positive yeast in her sputum this morning so I added p.o. Diflucan. (2) Benign essential HTN: Status: Chronic Plan: Monitor blood pressures (3) Chronic GERD: Status: Chronic Plan: I will restart the patient's omeprazole 40 mg twice daily. (4) Generalized weakness: Status: Chronic Plan: Monitor for improvement. (5) Insomnia: Status: Acute Plan: I will restart the patient's temazepam 30 mg at bedtime.
[2022-07-20] MEDS: NORVASC TAB 5 MG PO SCH (20:09)
[2022-07-20] MEDS: XANAX PO PRN (20:10)
[2022-07-20] MEDS: RESTORIL CAP 15 MG PO PRN (20:12)
[2022-07-20] MEDS: TUSSIONEX PENNKINETIC SUSP PO PRN (21:05)
[2022-07-21] MEDS: Atrovent NEB TX 0.02% NEB SCH ×2 (00:14→05:35)
[2022-07-21] MEDS: XOPENEX 1.25 MG/3 ML NEBULE NEB SCH ×2 (00:14→05:35)
[2022-07-21] MEDS: NS 1/2 1,000 ML IV 1,000 ML IV SCH (00:34)
[2022-07-21] MEDS: FORTAZ or TAZICEF VIAL INJ 1 G in NS 100 ML IV 100 ML IV SCH (05:04)
[2022-07-21] MEDS ORDERED: NS 1/2 1,000 ML IV 0 ML IV ONE (06:24)
[2022-07-21 06:31] LABS: BASOPHILS % (AUTO) 0.1 % (0.2-1.0); HEMATOCRIT 34.8 % (36.0-47.0); HEMOGLOBIN 12.3 g/dL (12.0-16.0); LYMPHOCYTES # (AUTO) 0.7 X10^3/uL (1.3-2.9); LYMPHOCYTES % (AUTO) 9.3 % (21.0-51.0); MEAN CORPUSCULAR HEMOGLOBIN 31.4 pg (27.0-34.0); MEAN CORPUSCULAR HGB CONC 35.4 g/dL (33.0-35.0); MEAN CORPUSCULAR VOLUME 88.9 fL (80.0-100.0); MEAN PLATELET VOLUME 8.5 fL (7.4-11.0); MONOCYTES # (AUTO) 0.3 x10^3/uL (0.3-0.8); MONOCYTES % (AUTO) 3.6 % (0.0-13.0); NEUTROPHILS # (AUTO) 6.2 x10^3/uL (2.2-4.8); RED BLOOD COUNT 3.91 X10^6/uL (3.5-5.4); RED CELL DISTRIBUTION WIDTH 13.9 % (11.6-16.5); WHITE BLOOD COUNT 7.1 X10^3/uL (3.6-10.0)
[2022-07-21 06:48] LABS: ALANINE AMINOTRANSFERASE 21 Units/L (12-78); ALKALINE PHOSPHATASE 57 Units/L (46-116); ASPARTATE AMINO TRANSFERASE 17 Units/L (15-37); BLOOD UREA NITROGEN 14 mg/dL (7-18); CALCIUM 8.5 mg/dL (8.5-10.1); CARBON DIOXIDE 24.2 mmol/L (21-32); CHLORIDE 106 mmol/L (98-107); COR CA(FOR HYPOALB) 9.3 mg/dL (8.5-10.1); COR NA(FOR HYPERGLY) 142 mmol/L (136-145); CREATININE 0.94 mg/dL (0.55-1.02); SODIUM 141 mmol/L (136-145); eGFR NON BLACK RACES > 60 (>60)
[2022-07-21] MEDS: LEVAQUIN PREMIX IV 750 MG 750 MG/150 ML BAG IV SCH (08:25)
[2022-07-21] MEDS: ROBITUSSIN DM PO SCH ×2 (08:27→12:45)
[2022-07-21] MEDS: PriLOSEC PO SCH (08:28)
[2022-07-21] MEDS: PLAVIX PO SCH (08:28)
[2022-07-21] MEDS: MIRAPEX TAB 0.25 MG PO SCH (08:28)
[2022-07-21] MEDS: DIFLUCAN PO SCH (08:29)
[2022-07-21] MEDS: LOVENOX INJ 40 MG SYR SC SCH (08:30)
[2022-07-21] MEDS: PULMICORT NEB TX 0.5 MG NEB SCH (08:31)
[2022-07-21] MEDS: SOLU-Medrol 40 MG VIAL IVP SCH (08:31)
[2022-07-21] MEDS: TYLENOL 325 MG TAB PO PRN (10:23)
[2022-07-21 12:42] VITALS: BP 151/71
== END 2022-07-21 13:25 | disposition home or self-care (01) | DRG 191 ==
LOC: MED/SURG 12:05
PROVIDERS: ADMIT Family Medicine; ATTEND Family Medicine
DX: I10 Essential (primary) hypertension; K21.9 Gastro-esophageal reflux disease without esophagitis; R06.02 Shortness of breath; J47.1 Bronchiectasis with (acute) exacerbation; R53.1 Weakness; B37.89 Other sites of candidiasis